=== PATIENT | male | born 1940 | race Caucasian/White ===

== ENCOUNTER 2016-09-01 06:30 | Inpatient (IN) ==
--- NOTE | 2016-08-31 20:58 | Discharge Summary ---
<RaúlvikkiMary L - Last Filed: 08/31/16 20:55> Date of Encounter: 08/31/16 - Discharge Diagnosis (1) Arthritis of knee, left Priority: Primary Status: Acute (2) CAD (coronary artery disease) Priority: Secondary Status: Chronic Qualifiers: Coronary Disease-Associated Artery/Lesion type: unspecified vessel or lesion type [place] vs. transplanted heart: unspecified whether [place] or transplanted heart Associated angina: angina presence unspecified Qualified Code(s): I25.10 - Atherosclerotic heart disease of [place] coronary artery without angina pectoris (3) HTN (hypertension) Priority: Secondary Status: Chronic Qualifiers: Hypertension type: essential hypertension Qualified Code(s): I10 - Essential (primary) hypertension (4) HLD (hyperlipidemia) Priority: Secondary Status: Chronic Qualifiers: Hyperlipidemia type: unspecified Qualified Code(s): E78.5 - Hyperlipidemia , unspecified (5) History of coronary artery stent placement Priority: Secondary Status: Chronic (6) Chronic pain Priority: Secondary Status: Chronic Comments: Takes Percocet 10/325mg TID. Will add breakthrough pain. Qualifiers: Chronic pain type: other chronic pain Qualified Code(s): G89.29 - Other chronic pain - Discharge Medications Home Medications: Aspirin Enteric Coated [Aspirin EC] 325 mg PO DAILY #21 tablet.dr 08/31/16 [Rx] OxyCODONE Immed Rel [Roxicodone 5 MG] 5 - 10 mg PO DAILY #14 tablet 08/31/16 [Rx ] Ascorbic Acid [Vitamin C] 500 mg PO DAILY 09/01/16 [History] Aspirin [Lo-Dose Aspirin EC] 81 mg PO DAILY 09/01/16 [History] Atorvastatin [Lipitor] 40 mg PO HS 09/01/16 [History] Cyanocobalamin (Vitamin B-12) [Vitamin B-12] 1,000 mcg SL DAILY 09/01/16 [ History] Ibuprofen [Motrin] 600 mg PO Q8HR PRN 09/01/16 [History] Lisinopril [Zestril] 20 mg PO DAILY 09/01/16 [History] Multivitamin [One Daily Essential] 1 each PO DAILY 09/01/16 [History] [place]-3/Dha/Epa/Fish Oil [Fish Oil 1,000 mg Softgel] 1 each PO DAILY 09/01/16 [ History] Omeprazole 20 mg PO DAILY 09/01/16 [History] Oxycodone HCl/Acetaminophen [Percocet 10-325 mg Tablet] 1 each PO Q6H PRN [History] Allergies/Adverse Reactions: Allergies No Known Allergies Allergy (Verified 09/01/16 07:45) Primary care physician: Efren Jackson - Patient Status Disposition: Transfer Inpatient Rehab Fac Condition: Good - Discharge Instructions Follow Up With: Jeffrey Glasgow MD [Partnered Physician] - 09/30/16 10:10 am Mary Cotto PAC [Physician Dope Dry House Operator] - 09/11/16 11:00 am Efren Jackson DO [Primary Care Provider] - 12/31/16 10:30 am - Hospital Course Hospital course: Mr. Pillai is a 76 year old male - Time Spent with Patient Total time spent providing and/or coordinating discharge services: <Jeffrey Glasgow - Last Filed: 09/03/16 06:43> Date of Encounter: 09/03/16 Time of Encounter: 06:42 - Discharge Diagnosis (1) Arthritis of knee, left Priority: Primary Status: Acute (2) CAD (coronary artery disease) Priority: Secondary Status: Chronic Qualifiers: Coronary Disease-Associated Artery/Lesion type: unspecified vessel or lesion type [place] vs. transplanted heart: unspecified whether [place] or transplanted heart Associated angina: angina presence unspecified Qualified Code(s): I25.10 - Atherosclerotic heart disease of [place] coronary artery without angina pectoris (3) HTN (hypertension) Priority: Secondary Status: Chronic Qualifiers: Hypertension type: essential hypertension Qualified Code(s): I10 - Essential (primary) hypertension (4) HLD (hyperlipidemia) Priority: Secondary Status: Chronic Qualifiers: Hyperlipidemia type: unspecified Qualified Code(s): E78.5 - Hyperlipidemia , unspecified (5) History of coronary artery stent placement Priority: Secondary Status: Chronic (6) Chronic pain Status: Chronic Qualifiers: Chronic pain type: other chronic pain Qualified Code(s): G89.29 - Other chronic pain Primary care physician: Efren Jackson - Patient Status Functional capacity at discharge: uses cane/walker Overall status at discharge: patient is progressing back to baseline - Hospital Course Hospital course: Mr. Pillai is a 76 year old male The patient had an uneventful postoperative course. They received antibiotics and physical therapy and were discharged in stable condition. There will follow -up in the office in 2 weeks. Patient had some postoperative bleeding required additional arias. Aspirin DVT prophylaxis - Time Spent with Patient Total time spent providing and/or coordinating discharge services:
[2016-09-01] MEDS ORDERED: Albuterol 2.5 MG/3 ML NEBULIZER IH ONE (07:27)
[2016-09-01] MEDS ORDERED: CeFAZolin Pre 2,000 MG/100 ML 2,000 MG/100 ML BAG IVPB ONE (07:27)
[2016-09-01] MEDS ORDERED: Ringers Solution, Lactated 1,000 ML IVC SCH ×2 (07:30→11:29)
[2016-09-01] MEDS ORDERED: Acetaminophen IV 1,000 MG/100 ML INFUS..BTL IVPB ONE (07:30)
[2016-09-01] MEDS ORDERED: Famotidine 20 MG/2 ML VIAL IVP ONE (07:31)
[2016-09-01] MEDS ORDERED: *HR* Midazolam HCl 2 MG/2 ML VIAL ONE (08:12)
[2016-09-01] MEDS ORDERED: *HR* FentaNYL (PF) 100 MCG/2 ML VIAL ONE (08:12)
[2016-09-01] MEDS ORDERED: *HR* Propofol 200 MG/20 ML VIAL IVP ONE (08:13)
[2016-09-01] MEDS ORDERED: Lidocaine -MPF 2% 2 ML VIAL ONE (08:22)
--- NOTE | 2016-09-01 08:31 | Anesthesia Evaluation PreOp ---
Date of Encounter: 09/01/16 Time of Encounter: 08:30 - Past History Planned Operation: Left Total Knee Replacement Cardiac History: [place] (2015 BMS X 3), HTN, Hyperlipidemia, Other (CAD) Pulmonary History: Smoker (Chews Tobacco) DADO OPERATOR History: Denies Any Significant HX Other Medical History: Denies Any Significant HX Anesthesia History: No Prior Anesthetic Complications Alcohol Use: none Drug use: none Medications and Allergies Aspirin Enteric Coated [Aspirin EC] 325 mg PO DAILY #21 tablet. 08/31/16 [Rx] OxyCODONE Immed Rel [Roxicodone 5 MG] 5 - 10 mg PO DAILY #14 tablet 08/31/16 [Rx ] Ascorbic Acid [Vitamin C] 500 mg PO DAILY 09/01/16 [History] Aspirin [Lo-Dose Aspirin EC] 81 mg PO DAILY 09/01/16 [History] Atorvastatin [Lipitor] 40 mg PO HS 09/01/16 [History] Cyanocobalamin (Vitamin B-12) [Vitamin B-12] 1,000 mcg SL DAILY 09/01/16 [ History] Ibuprofen [Motrin] 600 mg PO Q8HR PRN 09/01/16 [History] Lisinopril [Zestril] 20 mg PO DAILY 09/01/16 [History] Multivitamin [One Daily Essential] 1 each PO DAILY 09/01/16 [History] [place]-3/Dha/Epa/Fish Oil [Fish Oil 1,000 mg Softgel] 1 each PO DAILY 09/01/16 [ History] Omeprazole 20 mg PO DAILY 09/01/16 [History] Oxycodone HCl/Acetaminophen [Percocet 10-325 mg Tablet] 1 each PO Q6H PRN [History] Allergies No Known Allergies Allergy (Verified 09/01/16 07:45) - Meds/Allergy Pre-op Review Medications Reviewed: Yes Allergies Reviewed: Yes Beta Blockers on Current Med List: No Anesthesia Results - Labs Laboratory Tests 08/20/16 08/20/16 10:35 10:35 Hgb 14.2 Hct 44.3 Plt Count 209 Sodium 144 Potassium 4.3 BUN 15 Creatinine 1.20 - Imaging EKG: report reviewed (SR) Anesthesia Exam O2 Sat Height 1.73 m Height 1.73 m Height 1.73 m Weight 92.986 kg Weight 92.986 kg Weight 92.986 kg O2 Sat by Pulse Oximetry 93 O2 Sat by Pulse Oximetry 93 Vital Signs Temp Pulse Resp BP Pulse Ox 98.5 F 79 18 182/100 93 09/01/16 07:15 09/01/16 07:15 09/01/16 07:15 09/01/16 07:15 09/01/16 07:15 Height: 5'8 Weight: 204 lbs NPO (# of Hours): MN Pain Scale: 0 - HEENT Pupil (Motor): Pupils equal, EOMI Mallampati: II Denture Type: Upper: Complete Oral Opening: Greater than 3 - DADO OPERATOR LOC: Oriented DADO OPERATOR Motor: Normal RUE, Normal LUE, Normal RLE, Normal LLE, Normal Face DADO OPERATOR Sensory: Normal: RUE, LUE, RLE, LLE, Face - Cardiac Rhythm: Regular Murmur: None JVD: No Carotid Bruit: No - Pulmonary Breath Sounds: bilateral Clear Respiratory Effort: Symmetrical Anesthesia Assess/Plan ASA Score: 3 (CAD HTN) Modified Agustin Scale for Level of Consciousness: Cooperative, oriented, and tranquil Anesthetic Plan: General, Regional Monitoring Plan: Standard Monitors Recovery Plan: PACU (Discussed GA and RA, agrees to proceed)
[2016-09-01] MEDS ORDERED: Bupivacaine/Clonidine Syringe 1 EACH SYRINGE ONE (08:45)
--- NOTE | 2016-09-01 09:10 | Anesthesia Procedures ---
Date of Encounter: 09/01/16 Time of Encounter: 09:08 Procedures: Anesthesia - Nerve Block Procedure Date: 09/01/16 Time: 09:08 Allergies/Adv Reactions: Allergies No Known Allergies Allergy (Verified 09/01/16 07:45) Pre-op Diagnosis: oa left knee Surgical Procedure: left tka Checklist: Correct Patient Identifier, Correct procedure, History checked Correct side: Left Blood Thinner: No Monitor Applied: EKG, BP, Pulse Oximetry Supplemental Oxygen via Nasal Cannula (L/min): 2 Sedation: Versed (mg): 2 Indication: Post Op Analgesia Pre-op Neuro Deficits: No Block Type: Femoral, Other (iPACK) Catheter placed: No Sterile Technique: Yes Ultrasound used: Yes Anatomy identified: Yes Visual spread of Local: Yes Neuro Stimulation: Yes Nerve Stimulator Range: 0.2 - 0.4 mA Blood on Needle Aspiration: No Smooth Injection of Local: Yes Pain with Injection of Local: No Prep: Chlorhexadine Needle: 22 x 50 mm Stimuplex (FEMORAL), 21 x 100 mm Stimuplex (iPACK) Local: 0.25% Bupivicaine w/Clonidine 20 mcg/cc (iPACK 20ml), Ropivacaine (0.5% 25ml) Volume (cc): 45 Number of Attempts: 1 Complications: None/effective block
[2016-09-01] MEDS ORDERED: Dexamethasone 4 MG/ML VIAL ONE (09:28)
[2016-09-01] MEDS ORDERED: Ondansetron 4 MG/2 ML VIAL ONE (09:28)
[2016-09-01] MEDS ORDERED: Ketorolac 30 MG/ML VIAL ONE (09:29)
[2016-09-01] MEDS ORDERED: *HR* Magnesium Sulfate 1 GM/2 ML VIAL ONE (09:30)
[2016-09-01] MEDS ORDERED: *HR* HYDROmorphone (PF) 1 MG/ML SYRINGE IVP PRN (09:43)
[2016-09-01] MEDS ORDERED: Ondansetron 4 MG/2 ML VIAL IVP PRN ×2 (09:43→11:29)
[2016-09-01] MEDS ORDERED: *HR* HYDROmorphone 2 MG/ML SYRINGE ONE (09:44)
[2016-09-01] MEDS ORDERED: EPHEDrine 50 MG/ML VIAL ONE (10:00)
--- NOTE | 2016-09-01 10:00 | Orthopedic Operative Note ---
Date of procedure: 09/01/16 Pre-op diagnosis: Left knee arthritis Post-op diagnosis: same Procedure: Procedure: Left Total knee replacement Estimated blood loss: 200 cc Hardware: Arthrex Femur: 7 Tibia: 7 PS insert: 10 Patella: 40 Exam Under anesthesia: Full flexion full extension no instability Procedural Notes: Grade 4 changes medial compartment grade 3 arthritic changes patellofemoral joint Operative procedure: The patient was brought to the operating room and placed on the operating room table. After general anesthesia was administered the operative knee was examined. Findings were noted in the exam under anesthesia. The operative extremity was prepped and draped in sterile surgical fashion. The patient received IV antibiotics prior to skin incision. A standard midline incision was made centered over the patella. The incision was made through the skin and subcutaneous tissue. A medial parapatellar tendon approach was performed. Care was taken to preserve tissue along the medial aspect of the patella. And to protect the patella tendon. The deep MCL was released off the medial tibia. The infra patella fat pad was excised. Knee was brought into flexion. Patient noted to have grade 4 changes medial compartment and grade 3 arthritic changes patellofemoral joint. The entry hole was made for the intramedullary femoral guide. The guide was seated in 6 degrees of valgus. Anterior cut was made followed by the distal cut. The ACL the PCL the medial and the lateral menisci were excised. The tibia was subluxed forward. The entry hole was made for the intramedullary tibial guide. Guide was seated to resect 2 mm off the more abnormal side. The knee was brought into flexion the distal femur was sized to a 7. The femoral guide was seated, the anterior cut was made followed by the posterior condylar cut, followed by the chamfer cuts. The finishing guide was seated the box cut was made and the lug holes were drilled. The tibia was sized to a 7, the tibial tray was seated and prepared with the large drill followed by the fin cutter. Trial reduction revealed full extension no varus valgus instability with the appropriate 10 PS Roberta. The patella was everted and cut was made at the level of the insertion of the quadriceps and patella tendon. The patella was sized to a 40 the guide was seated and the lug holes are drilled. Trial reduction revealed excellent patella tracking. All trial components were removed all bony surfaces were irrigated. The tibia was cemented first followed by the femur. The 10 PS Roberta was seated and the knee was brought into full extension. The patella was cemented and held in place with the patellar holding clamp. After the cement had hardened, the knee sat for 2 minutes with a Betadine saline solution. The knee was then irrigated out with 2 L of pulse irrigation. The extensor mechanism was closed with #2 FiberWire suture and #2 PDS suture. The subcutaneous tissue was then irrigated and closed deep with #1 PDS suture superficially with 0 PDS suture and skin was closed with skin arias. The patient was then placed in a sterile dressing and a postoperative brace extubated and transferred to recovery room in stable condition. Anesthesia: ROMARIO Surgeon: Jeffrey Glasgow Women Specialist: Mary Cotto Condition: stable Disposition: PACU
[2016-09-01 10:49] LABS: Hematocrit 39.3 % (37.5-50.1); Hemoglobin 12.7 g/dL (12.9-16.9)
[2016-09-01] MEDS: *HR* Labetalol 100 MG/20 ML MDV IVP PRN ×2 (11:10→11:16)
[2016-09-01] MEDS ORDERED: *HR* Labetalol 20 MG/4 ML SYRINGE IVP PRN (11:11)
[2016-09-01] MEDS ORDERED: Temazepam 15 MG CAPSULE PO PRN (11:29)
[2016-09-01] MEDS ORDERED: Acetaminophen 325 MG TABLET PO PRN (11:29)
[2016-09-01] MEDS ORDERED: Naloxone 0.4 MG/ML INJ IVP PRN (11:29)
[2016-09-01] MEDS ORDERED: MOM Conc 10 ML UD.LIQ PO PRN (11:29)
[2016-09-01] MEDS ORDERED: *HR* OxyCODONE Immed Rel 5 MG TABLET PO PRN (11:29)
[2016-09-01] MEDS ORDERED: Ibuprofen 600 MG TABLET PO PRN (11:29)
[2016-09-01] MEDS ORDERED: Sennosides 8.6 MG TABLET PO PRN (11:29)
--- NOTE | 2016-09-01 11:29 | Anesthesia Evaluation Post Op ---
Date of Encounter: 09/01/16 Time of Encounter: 11:28 - Vital Signs Vital Signs: Vital Signs/O2 Sat, Most Current Temp Pulse Resp BP Pulse Ox 98.0 F 59 18 149/89 97 09/01/16 11:15 09/01/16 11:15 09/01/16 11:15 09/01/16 11:15 09/01/16 11:15 - Lungs Lungs: Clear Ascult./Percussion - Airway Airway: Non-obstructed - Cardiovascular Regular Rate - Mental Status Mental Status: Alert & Oriented, Answers Appropriately - Pain Pain Scale: 0 Pain Scale used: Numeric (1 - 10) - Nausea Vomiting Nausea Vomiting: Not Present - Hydration Hydration: Ice chips, Has not voided - Discharge PostOp Status: Transfer Patient to floor
[2016-09-01] MEDS: (Omega-3/Dha/Epa/Fish Oil [Fish Oil 1,000 Mg Softgel]) PO SCH (11:47)
[2016-09-01] MEDS: Aspirin Enteric Coated 81 MG Tablet PO SCH (11:56)
[2016-09-01] MEDS: Lisinopril 20 MG TABLET PO SCH (12:04)
[2016-09-01] MEDS: Ascorbic Acid 500 MG TABLET PO SCH (12:05)
[2016-09-01] MEDS: Cyanocobalamin (B-12) 1,000 MCG TABLET PO SCH (12:05)
[2016-09-01] MEDS: Multivit/Ca/Min/Fe/FA 1 TAB TABLET PO SCH (12:05)
[2016-09-01] MEDS: ceFAZolin 2,000 MG in D5% in Water 100 ML IVPB SCH (15:22)
[2016-09-01] MEDS: *HR* Enoxaparin 30 MG/0.3 ML SYRINGE SQ SCH (17:24)
[2016-09-01] MEDS ORDERED: *HR* Enoxaparin 30 MG/0.3 ML SYRINGE SQ SCH (18:00)
[2016-09-01] MEDS: *HR* OxyCODONE Immed Rel 5 MG TABLET PO PRN (18:52)
[2016-09-02] MEDS: ceFAZolin 2,000 MG in D5% in Water 100 ML IVPB SCH (00:12)
[2016-09-02] MEDS: *HR* OxyCODONE Immed Rel 5 MG TABLET PO PRN ×4 (00:18→17:12)
[2016-09-02 05:16] LABS: Hematocrit 34.5 % (37.5-50.1); Hemoglobin 11.2 g/dL (12.9-16.9)
[2016-09-02 05:23] LABS: BUN/Creatinine Ratio 18 (6-26); Blood Urea Nitrogen 20 mg/dL (8-26); Calcium 8.8 mg/dL (8.6-10.8); Carbon Dioxide 26 mEq/L (19-29); Chloride 103 mEq/L (98-109); Glucose 197 mg/dL (70-99); Osmolality,Calculated 290 (280-300); Potassium 4.3 mEq/L (3.5-4.5); Sodium 136 mEq/L (136-145); eGFR For African Americans > 60 (> 60); eGFR For Non-African Americans > 60 (> 60)
[2016-09-02] MEDS: *HR* Enoxaparin 30 MG/0.3 ML SYRINGE SQ SCH ×2 (05:44→17:01)
--- NOTE | 2016-09-02 06:20 | Orthopedics Progress Note ---
Date of Encounter: 09/02/16 Time of Encounter: 06:19 - Assessment and Plan (1) Arthritis of knee, left Current Visit: Yes Status: Acute (2) CAD (coronary artery disease) Current Visit: Yes Status: Chronic Qualifiers: Coronary Disease-Associated Artery/Lesion type: unspecified vessel or lesion type [place] vs. transplanted heart: unspecified whether [place] or transplanted heart Associated angina: angina presence unspecified Qualified Code(s): I25.10 - Atherosclerotic heart disease of [place] coronary artery without angina pectoris (3) HTN (hypertension) Current Visit: Yes Status: Chronic Qualifiers: Hypertension type: essential hypertension Qualified Code(s): I10 - Essential (primary) hypertension (4) HLD (hyperlipidemia) Current Visit: Yes Status: Chronic Qualifiers: Hyperlipidemia type: unspecified Qualified Code(s): E78.5 - Hyperlipidemia , unspecified (5) History of coronary artery stent placement Current Visit: Yes Status: Chronic (6) Chronic pain Current Visit: Yes Status: Chronic Qualifiers: Chronic pain type: other chronic pain Qualified Code(s): G89.29 - Other chronic pain Subjective Interval history: Patient was seen this morning doing well without complaints. Afebrile vital signs stable. Operative extremity: Neurovascularly intact Dressing bloody change today Calves nontender Assessment and plan: Continue with postoperative care Hematocrit 34 Objective Vital signs: Vital Signs Temp Pulse Resp BP Pulse Ox 09/02/16 04:24 97.5 F L 90 17 150/73 95 09/01/16 23:55 98.1 F 77 14 125/69 93 09/01/16 20:25 98.1 F 97 17 152/76 96 09/01/16 14:31 97.8 F 73 16 152/89 95 09/01/16 14:06 77 15 138/77 94 09/01/16 13:39 97.8 F 77 15 138/77 94 09/01/16 12:32 97.8 F 73 14 145/79 92 09/01/16 12:07 97.6 F 72 13 125/86 92 09/01/16 11:35 93 09/01/16 11:29 97.6 F 59 14 157/90 92 09/01/16 11:15 98.0 F 59 18 149/89 97 09/01/16 11:05 71 18 172/101 97 09/01/16 10:55 97.8 F 72 16 160/98 97 09/01/16 10:45 76 14 159/90 97 09/01/16 10:35 81 14 154/97 96 09/01/16 10:25 98.9 F 73 20 136/85 95 09/01/16 08:45 73 162/99 97 09/01/16 07:39 98.5 F 79 18 182/100 93 09/01/16 07:15 98.5 F 79 18 182/100 93 Intake and Output 09/01/16 09/01/16 09/02/16 15:59 23:59 07:59 Intake Total 100 / 100 360 / 360 Output Total 200 / 200 250 / 250 Balance -100 / -100 360 / 360 -250 / -250 Intake: IV Fluids 100 / 100 Ancef 2,000 MG In 100 / 100 Dextrose 5% 100 ML @ 200 mls/hr IVPB Q8HR CHARITY Rx#: [id number] Oral 360 / 360 Output: Urine 250 / 250 Estimated Blood Loss 200 / 200 Other: Meal Dinner Percent of Meal Consumed 100% # Voids 1 - Labs CBC & BMP: 09/02/16 04:06 09/02/16 04:06 Labs: Abnormal lab results Hgb 11.2 g/dL (12.9-16.9) L D 09/02/16 04:06 Hct 34.5 % (37.5-50.1) L 09/02/16 04:06 Glucose 197 mg/dL (70-99) H 09/02/16 04:06 - VTE Documentation of Mechanical Device: Venous foot pump, device Consult Discharge Plan - Plan Referrals: Jeffrey Glasgow MD [Partnered Physician] - 09/30/16 10:10 am Mary Cotto PAC [Physician Assistant Store Manager Sales] - 09/11/16 11:00 am Efren Jackson DO [Primary Care Provider] - 12/31/16 10:30 am
[2016-09-02] MEDS: Ascorbic Acid 500 MG TABLET PO SCH (09:00)
[2016-09-02] MEDS: Cyanocobalamin (B-12) 1,000 MCG TABLET PO SCH (09:00)
[2016-09-02] MEDS: Lisinopril 20 MG TABLET PO SCH (09:00)
[2016-09-02] MEDS: Aspirin Enteric Coated 81 MG Tablet PO SCH (09:00)
[2016-09-02] MEDS: (Omega-3/Dha/Epa/Fish Oil [Fish Oil 1,000 Mg Softgel]) PO SCH (09:00)
[2016-09-02] MEDS: Multivit/Ca/Min/Fe/FA 1 TAB TABLET PO SCH (09:00)
[2016-09-02] MEDS: *HR* HYDROmorphone (PF) 1 MG/ML SYRINGE IVP PRN ×2 (13:54→20:14)
[2016-09-03 05:20] LABS: Hematocrit 36.1 % (37.5-50.1); Hemoglobin 11.9 g/dL (12.9-16.9)
[2016-09-03 05:29] LABS: BUN/Creatinine Ratio 19 (6-26); Blood Urea Nitrogen 20 mg/dL (8-26); Carbon Dioxide 30 mEq/L (19-29); Chloride 101 mEq/L (98-109); Glucose 147 mg/dL (70-99); Osmolality,Calculated 287 (280-300); Potassium 4.4 mEq/L (3.5-4.5); Sodium 136 mEq/L (136-145); eGFR For African Americans > 60 (> 60); eGFR For Non-African Americans > 60 (> 60)
[2016-09-03] MEDS: *HR* OxyCODONE Immed Rel 5 MG TABLET PO PRN (06:31)
[2016-09-03 06:33] VITALS: BP 166/94
[2016-09-03] MEDS: *HR* Enoxaparin 30 MG/0.3 ML SYRINGE SQ SCH (06:34)
--- NOTE | 2016-09-03 06:41 | Orthopedics Progress Note ---
Date of Encounter: 09/03/16 Time of Encounter: 06:41 - Assessment and Plan (1) Arthritis of knee, left Current Visit: Yes Status: Acute (2) CAD (coronary artery disease) Current Visit: Yes Status: Chronic Qualifiers: Coronary Disease-Associated Artery/Lesion type: unspecified vessel or lesion type [place] vs. transplanted heart: unspecified whether [place] or transplanted heart Associated angina: angina presence unspecified Qualified Code(s): I25.10 - Atherosclerotic heart disease of [place] coronary artery without angina pectoris (3) HTN (hypertension) Current Visit: Yes Status: Chronic Qualifiers: Hypertension type: essential hypertension Qualified Code(s): I10 - Essential (primary) hypertension (4) HLD (hyperlipidemia) Current Visit: Yes Status: Chronic Qualifiers: Hyperlipidemia type: unspecified Qualified Code(s): E78.5 - Hyperlipidemia , unspecified (5) History of coronary artery stent placement Current Visit: Yes Status: Chronic (6) Chronic pain Current Visit: Yes Status: Chronic Qualifiers: Chronic pain type: other chronic pain Qualified Code(s): G89.29 - Other chronic pain Subjective Interval history: Patient was seen this morning doing well without complaints. Afebrile vital signs stable. Operative extremity: Neurovascularly intact Dressing bloody change today Calves nontender Assessment and plan: Continue with postoperative care Hematocrit 36 discharged today Objective Vital signs: Vital Signs Temp Pulse Resp BP Pulse Ox 09/03/16 06:31 98.2 F 88 16 166/94 92 09/03/16 01:37 98.4 F 100 16 158/94 92 09/02/16 17:17 99 161/89 09/02/16 14:00 98.2 F 81 18 165/94 93 09/02/16 10:58 98.0 F 85 18 135/75 95 09/02/16 07:11 97 Intake and Output 09/02/16 09/02/16 09/03/16 15:59 23:59 07:59 Intake Total 480 / 480 240 / 240 Output Total 1100 / 1100 700 / 700 Balance -620 / -620 -460 / -460 Intake: Oral 480 / 480 240 / 240 Output: Urine 1100 / 1100 700 / 700 Other: Meal Lunch Dinner Percent of Meal Consumed 100% 90% - Labs CBC & BMP: 09/03/16 04:58 09/03/16 04:58 Labs: Abnormal lab results Hgb 11.9 g/dL (12.9-16.9) L 09/03/16 04:58 Hct 36.1 % (37.5-50.1) L 09/03/16 04:58 Carbon Dioxide 30 mEq/L (19-29) H 09/03/16 04:58 Glucose 147 mg/dL (70-99) H 09/03/16 04:58 - VTE Documentation of Mechanical Device: Venous foot pump, device Consult Discharge Plan - Plan Referrals: Jeffrey Glasgow MD [Partnered Physician] - 09/30/16 10:10 am Mary Cotto, PAC [Physician Dancing Instructor] - 09/11/16 11:00 am Efren Jackson DO [Primary Care Provider] - 12/31/16 10:30 am
[2016-09-03] MEDS: Ascorbic Acid 500 MG TABLET PO SCH (08:23)
[2016-09-03] MEDS: Aspirin Enteric Coated 81 MG Tablet PO SCH (08:23)
[2016-09-03] MEDS: Cyanocobalamin (B-12) 1,000 MCG TABLET PO SCH (08:23)
[2016-09-03] MEDS: Multivit/Ca/Min/Fe/FA 1 TAB TABLET PO SCH (08:23)
[2016-09-03] MEDS: Lisinopril 20 MG TABLET PO SCH (08:24)
[2016-09-03] MEDS: (Omega-3/Dha/Epa/Fish Oil [Fish Oil 1,000 Mg Softgel]) PO SCH (08:24)
== END 2016-09-03 09:45 | DRG 470 ==
LOC: SAMDAY 06:30 → 3NENU 10:58
PROVIDERS: ADMIT Orthopaedic Surgery; ATTEND Orthopaedic Surgery

== ENCOUNTER 2017-02-26 13:18 | Inpatient (IN) ==
--- NOTE | 2017-02-26 13:25 | Emergency Department Note ---
Disposition Clinical Impression: Atrial flutter, Echocardiogram abnormal, Dyspnea Disposition: Admitted As Inpatient Condition: Fair General Adult HPI - General Chief complaint: ED Shortness of Breath/Dyspnea Stated complaint: SOB Time Seen by Provider: 02/26/17 13:22 - Related Data Home Medications Medication Instructions Recorded Confirmed Ascorbic Acid [Vitamin C] 600 mg PO DAILY 09/01/16 02/26/17 Aspirin [Lo-Dose Aspirin EC] 81 mg PO DAILY 09/01/16 02/26/17 Cyanocobalamin (Vitamin B-12) 1,000 mcg SL DAILY 09/01/16 02/26/17 [Vitamin B-12] Ibuprofen [Motrin] 600 mg PO Q8HR PRN 09/01/16 02/26/17 Lisinopril [Zestril] 20 mg PO DAILY 09/01/16 02/26/17 Multivitamin [One Daily Essential] 1 each PO DAILY 09/01/16 02/26/17 Omeprazole 20 mg PO DAILY 09/01/16 02/26/17 Metoprolol XL (24 HR) Succ [Toprol 25 mg PO DAILY 02/26/17 02/26/17 XL] Oxycodone HCl/Acetaminophen 1 tab PO Q6H PRN 02/26/17 02/26/17 [Percocet 10-325 mg Tablet] Allergies Allergy/AdvReac Type Severity Reaction Status Date / Time No Known Allergies Allergy Verified 02/09/17 09:54 Past Medical History - Past Medical History Medical history: Reports: arthritis, coronary artery disease, hyperlipidemia, hypertension Psychiatric history: Reports: no psych history - Social History Smoking Status: Never smoker Smokeless Tobacco Status: No Alcohol use: Reports: none Drug use: Reports: none Course Vital Signs Temperature 99.0 F 02/26/17 13:20 Pulse Rate 144 02/26/17 13:20 Respiratory Rate 18 02/26/17 13:20 Blood Pressure 134/103 02/26/17 13:20 O2 Sat by Pulse Oximetry 94 02/26/17 13:20 Temperature 97.7 F 02/26/17 20:09 Pulse Rate 71 02/26/17 20:09 Respiratory Rate 18 02/26/17 20:09 Blood Pressure 95/67 02/26/17 20:09 O2 Sat by Pulse Oximetry 96 02/26/17 20:09 Oxygen Delivery Oxygen Delivery Nasal Cannula Medical Decision Making - Lab Data Result diagrams: 02/26/17 13:43 02/26/17 13:44 Lab Results 02/26/17 02/26/17 02/26/17 Range/Units 13:43 13:44 13:44 WBC 10.5 (4.3-11.1) K/mcL RBC 4.62 (4.19-5.50) M/mcL Hgb 12.9 (12.9-16.9) g/dL Hct 40.9 (37.5-50.1) % MCV 88.5 (83.0-100.0) fL MCH 27.9 L (28.0-33.3) pg MCHC 31.5 L (31.6-35.5) g/dL RDW 16.3 H (11.5-14.5) % Plt Count 177 (140-400) K/mcL MPV 9.2 L (9.4-12.4) fL Immature Gran % 0.9 (0-4) % Seg Neutrophils % 73.5 % Lymphocytes % 16.1 % Monocytes % 8.0 % Eosinophils % 1.1 % Basophils % 0.4 % Neutrophils # 7.7 (1.6-8.9) K/mcL Lymphocytes # 1.7 (0.6-4.6) K/mcL Monocytes # 0.8 (0.0-1.3) K/mcL Eosinophils # 0.1 (0.0-0.6) K/mcL Basophils # 0.0 (0.0-0.2) K/mcL Nucleated RBCs/100 WBC 0.2 H (0) /100 WBC PT 13.3 H (9.4-12.1) Seconds INR 1.2 APTT (26.0-36.0) Seconds D-Dimer 2121 H (0-500) ng/mLFEU Sodium 140 (136-145) mEq/L Potassium 3.5 (3.5-4.5) mEq/L Chloride 102 (98-109) mEq/L Carbon Dioxide 28 (19-29) mEq/L BUN 23 (8-26) mg/dL Creatinine 1.46 H (0.72-1.25) mg/dL Est GFR ( Amer) 57 L (> 60) Est GFR (Non-Af Amer) 47 L (> 60) BUN/Creatinine Ratio 16 (6-26) Glucose 108 H (70-99) mg/dL Calculated Osmolality 294 (280-300) Calcium 9.4 (8.6-10.8) mg/dL Total Bilirubin 1.0 (0.2-1.2) mg/dL Direct Bilirubin 0.4 (0.0-0.5) mg/dL Indirect Bilirubin 0.6 (0.0-1.2) mg/dL AST 41 H (5-34) Units/L ALT 14 (0-55) Units/L Alkaline Phosphatase 91 (38-126) Units/L Troponin I (0-0.03) ng/mL B-Natriuretic Peptide (0-100) pg/mL Serum Total Protein 6.4 (6.0-8.3) g/dL Albumin 3.6 (3.5-5.0) g/dL Globulin 2.8 (2.4-3.5) g/dL Albumin/Globulin Ratio 1.3 (1.1-2.2) 02/26/17 02/26/17 02/26/17 Range/Units 13:44 13:44 13:44 WBC (4.3-11.1) K/mcL RBC (4.19-5.50) M/mcL Hgb (12.9-16.9) g/dL Hct (37.5-50.1) % MCV (83.0-100.0) fL MCH (28.0-33.3) pg MCHC (31.6-35.5) g/dL RDW (11.5-14.5) % Plt Count (140-400) K/mcL MPV (9.4-12.4) fL Immature Gran % (0-4) % Seg Neutrophils % % Lymphocytes % % Monocytes % % Eosinophils % % Basophils % % Neutrophils # (1.6-8.9) K/mcL Lymphocytes # (0.6-4.6) K/mcL Monocytes # (0.0-1.3) K/mcL Eosinophils # (0.0-0.6) K/mcL Basophils # (0.0-0.2) K/mcL Nucleated RBCs/100 WBC (0) /100 WBC PT (9.4-12.1) Seconds INR APTT 26.7 (26.0-36.0) Seconds D-Dimer (0-500) ng/mLFEU Sodium (136-145) mEq/L Potassium (3.5-4.5) mEq/L Chloride (98-109) mEq/L Carbon Dioxide (19-29) mEq/L BUN (8-26) mg/dL Creatinine (0.72-1.25) mg/dL Est GFR ( Amer) (> 60) Est GFR (Non-Af Amer) (> 60) BUN/Creatinine Ratio (6-26) Glucose (70-99) mg/dL Calculated Osmolality (280-300) Calcium (8.6-10.8) mg/dL Total Bilirubin (0.2-1.2) mg/dL Direct Bilirubin (0.0-0.5) mg/dL Indirect Bilirubin (0.0-1.2) mg/dL AST (5-34) Units/L ALT (0-55) Units/L Alkaline Phosphatase (38-126) Units/L Troponin I 0.03 (0-0.03) ng/mL B-Natriuretic Peptide 573 H (0-100) pg/mL Serum Total Protein (6.0-8.3) g/dL Albumin (3.5-5.0) g/dL Globulin (2.4-3.5) g/dL Albumin/Globulin Ratio (1.1-2.2) Critical Care Time Critical Care Time: Yes Total Critical Care Time: 30 Attestation: Suspected atrial flutter requiring Cardizem drip for rate control Attestation Statement - Attestation Attestation: I examined this patient and my medical decision-making was reviewed with the Resident Physician. I agree with the documented findings, disposition and treatment plan as described except to the extent set forth below. [id number] time provided Patient arrives by embolus. He had an outpatient echocardiogram at a different facility which reportedly showed a low ejection fraction and heart rate in the 140s. Patient does complain of dyspnea that has now resolved and peripheral edema. He appears in no acute distress on exam 14:18: Patient's creatinine is elevated. He also has an elevated d-dimer. CTA chest contraindicated due to renal function. We will obtain a VQ scan
--- NOTE | 2017-02-26 13:37 | Emergency Department Note ---
Disposition Clinical Impression: Echocardiogram abnormal Atrial flutter Qualifiers: Atrial flutter type: unspecified Qualified Code(s): I48.92 - Unspecified atrial flutter Dyspnea Qualifiers: Dyspnea type: unspecified Qualified Code(s): R06.00 - Dyspnea, unspecified Disposition: Admitted As Inpatient Condition: Fair Referrals: Karen Richmond CNP [Primary Care Provider] - Forms: ED Satisfaction Letter Time of Disposition: 16:18 SOB HPI - General Chief Complaint: ED Shortness of Breath/Dyspnea Stated Complaint: SOB Time Seen by Provider: 02/26/17 13:22 Source: patient, EMS Limitations: no limitations Nursing Notes Reviewed: Yes Vital Signs Reviewed: Yes - History of Present Illness Patient is a 77-year-old male who presents to [facility] ED with a chief complaint of shortness of breath. States he was told to come in because his heart function was low. Hypercholesterolemia, HTN, CAD s/p NSTEMI s/p BMS to prox LCx, mid RCA, and distal RCA. He was seen at the PCP office yesterday and had an outpatient echocardiogram scheduled for today. His ejection fraction was found to be 20% with severe LV dysfunction. This is changed compared to his prior echocardiogram done in June 2014 which showed an EF of 60%. Patient previously was following with public relations associate Dr Silver. He was told to come in to the ED by his primary care Matthew Richmond CNP. Patient states he has been increasingly short of breath intermittently over the last month. He had been diagnosed with pneumonia and pleural effusion and still on a course of Levaquin. He denies any nausea, vomiting, fever or chills. No chest pain, orthopnea, exertional dyspnea. States his chronic knee pain has been bothering him and keeping him from walking more than anything else. Pt Subjective Complaint: shortness of breath Onset (ago): week(s) Context: recent illness Severity: moderate Consistency/Duration: gradually worsening Improves with: rest Worsens with: nothing Associated symptoms: Denies: chest pain, fever, cough, orthopnea, nausea/ vomiting, abdominal pain Treatment prior to arrival: none Cough present: No - Related Data Home oxygen amount: none Home Medications Medication Instructions Recorded Confirmed Ascorbic Acid [Vitamin C] 600 mg PO DAILY 09/01/16 02/26/17 Aspirin [Lo-Dose Aspirin EC] 81 mg PO DAILY 09/01/16 02/26/17 Cyanocobalamin (Vitamin B-12) 1,000 mcg SL DAILY 09/01/16 02/26/17 [Vitamin B-12] Ibuprofen [Motrin] 600 mg PO Q8HR PRN 09/01/16 02/26/17 Lisinopril [Zestril] 20 mg PO DAILY 09/01/16 02/26/17 Multivitamin [One Daily Essential] 1 each PO DAILY 09/01/16 02/26/17 Omeprazole 20 mg PO DAILY 09/01/16 02/26/17 Metoprolol XL (24 HR) Succ [Toprol 25 mg PO DAILY 02/26/17 02/26/17 XL] Oxycodone HCl/Acetaminophen 1 tab PO Q6H PRN 02/26/17 02/26/17 [Percocet 10-325 mg Tablet] Allergies Allergy/AdvReac Type Severity Reaction Status Date / Time No Known Allergies Allergy Verified 02/09/17 09:54 All systems ED: reviewed and negative except as stated. Past Medical History - Past Medical History Attestation: Yes The following information was validated with the patient. Source: patient Medical history: Reports: arthritis, coronary artery disease, hyperlipidemia, hypertension Psychiatric history: Reports: no psych history - Social History Smoking Status: Never smoker Smokeless Tobacco Status: No Alcohol use: Reports: none Drug use: Reports: none Physical Exam - General Limitations: no limitations General appearance: alert, in no apparent distress - Head Head exam: atraumatic, normocephalic, normal inspection - Eye Eye exam: Present: normal appearance, EOMI - ENT ENT exam: normal exam, normal oropharynx, mucous membranes moist - Neck Neck exam: Present: normal inspection, full ROM, trachea midline - Chest Chest inspection: Present: normal inspection, symmetric chest wall rise - Respiratory Respiratory exam: Present: other (Decreased breath sounds bilaterally) - Cardiovascular Cardiovascular exam: Present: tachycardia, irregular rhythm - Abdominal Exam Abdominal exam: Present: soft, Non-Tender. Absent: tenderness, distention, guarding, rebound, rigidity - Extremities Exam Extremities exam: Present: normal inspection, full ROM, pedal edema (Bilateral 2 + edema). Absent: tenderness - Back Exam Back exam: Present: normal inspection, full ROM. Absent: tenderness - Neurological Exam Neurological exam: Present: alert, oriented X3 - Psychiatric Psychiatric exam: Present: normal affect, normal mood - Skin Skin exam: Present: warm, dry, intact, normal color Course Course Narrative: Patient seen and examined. Dyspnea over the last month. Found to have ejection fraction of 20% today. Cardiopulmonary workup initiated. Patient's dyspnea has not been very characteristic of heart failure. Also get a d-dimer level. He is in atrial flutter with rapid ventricular response. We will give a dose of 15 mg IV Cardizem and started on a Cardizem drip. We will also start patient on a heparin drip. Unknown how long he has been in this rhythm. - Reevaluation(s) Reevaluation #1: Lab work shows troponin 0.03, BNP in the 500s. His d-dimer level was elevated over 1999. However due to his creatinine, we chose to get a ventilation/ perfusion scan. This showed low probability for pulmonary embolus. Will admit for atrial flutter with RVR, dyspnea, JACQUES. Discussed with hospitalist Dr. Yoder who has accepted patient for admission. Time: 16:16 Vital Signs Temperature 99.0 F 02/26/17 13:20 Pulse Rate 144 02/26/17 13:20 Respiratory Rate 18 02/26/17 13:20 Blood Pressure 134/103 02/26/17 13:20 O2 Sat by Pulse Oximetry 94 02/26/17 13:20 Temperature 99.0 F 02/26/17 13:20 Pulse Rate 101 02/26/17 16:09 Respiratory Rate 20 02/26/17 16:09 Blood Pressure 123/81 02/26/17 16:09 O2 Sat by Pulse Oximetry 98 02/26/17 16:09 Oxygen Delivery Oxygen Delivery Nasal Cannula Shortness of Breath/Dyspnea - Medical Records Medical records reviewed: Yes I reviewed the patient's medical records. - Lab Data Lab results reviewed: Yes I reviewed the patient's lab results. Result diagrams: 02/26/17 13:43 02/26/17 13:44 Lab Results 02/26/17 02/26/17 02/26/17 Range/Units 13:43 13:44 13:44 WBC 10.5 (4.3-11.1) K/mcL RBC 4.62 (4.19-5.50) M/mcL Hgb 12.9 (12.9-16.9) g/dL Hct 40.9 (37.5-50.1) % MCV 88.5 (83.0-100.0) fL MCH 27.9 L (28.0-33.3) pg MCHC 31.5 L (31.6-35.5) g/dL RDW 16.3 H (11.5-14.5) % Plt Count 177 (140-400) K/mcL MPV 9.2 L (9.4-12.4) fL Immature Gran % 0.9 (0-4) % Seg Neutrophils % 73.5 % Lymphocytes % 16.1 % Monocytes % 8.0 % Eosinophils % 1.1 % Basophils % 0.4 % Neutrophils # 7.7 (1.6-8.9) K/mcL Lymphocytes # 1.7 (0.6-4.6) K/mcL Monocytes # 0.8 (0.0-1.3) K/mcL Eosinophils # 0.1 (0.0-0.6) K/mcL Basophils # 0.0 (0.0-0.2) K/mcL Nucleated RBCs/100 WBC 0.2 H (0) /100 WBC PT 13.3 H (9.4-12.1) Seconds INR 1.2 APTT (26.0-36.0) Seconds D-Dimer 2121 H (0-500) ng/mLFEU Sodium 140 (136-145) mEq/L Potassium 3.5 (3.5-4.5) mEq/L Chloride 102 (98-109) mEq/L Carbon Dioxide 28 (19-29) mEq/L BUN 23 (8-26) mg/dL Creatinine 1.46 H (0.72-1.25) mg/dL Est GFR ( Amer) 57 L (> 60) Est GFR (Non-Af Amer) 47 L (> 60) BUN/Creatinine Ratio 16 (6-26) Glucose 108 H (70-99) mg/dL Calculated Osmolality 294 (280-300) Calcium 9.4 (8.6-10.8) mg/dL Total Bilirubin 1.0 (0.2-1.2) mg/dL Direct Bilirubin 0.4 (0.0-0.5) mg/dL Indirect Bilirubin 0.6 (0.0-1.2) mg/dL AST 41 H (5-34) Units/L ALT 14 (0-55) Units/L Alkaline Phosphatase 91 (38-126) Units/L Troponin I (0-0.03) ng/mL B-Natriuretic Peptide (0-100) pg/mL Serum Total Protein 6.4 (6.0-8.3) g/dL Albumin 3.6 (3.5-5.0) g/dL Globulin 2.8 (2.4-3.5) g/dL Albumin/Globulin Ratio 1.3 (1.1-2.2) 02/26/17 02/26/17 02/26/17 Range/Units 13:44 13:44 13:44 WBC (4.3-11.1) K/mcL RBC (4.19-5.50) M/mcL Hgb (12.9-16.9) g/dL Hct (37.5-50.1) % MCV (83.0-100.0) fL MCH (28.0-33.3) pg MCHC (31.6-35.5) g/dL RDW (11.5-14.5) % Plt Count (140-400) K/mcL MPV (9.4-12.4) fL Immature Gran % (0-4) % Seg Neutrophils % % Lymphocytes % % Monocytes % % Eosinophils % % Basophils % % Neutrophils # (1.6-8.9) K/mcL Lymphocytes # (0.6-4.6) K/mcL Monocytes # (0.0-1.3) K/mcL Eosinophils # (0.0-0.6) K/mcL Basophils # (0.0-0.2) K/mcL Nucleated RBCs/100 WBC (0) /100 WBC PT (9.4-12.1) Seconds INR APTT 26.7 (26.0-36.0) Seconds D-Dimer (0-500) ng/mLFEU Sodium (136-145) mEq/L Potassium (3.5-4.5) mEq/L Chloride (98-109) mEq/L Carbon Dioxide (19-29) mEq/L BUN (8-26) mg/dL Creatinine (0.72-1.25) mg/dL Est GFR ( Amer) (> 60) Est GFR (Non-Af Amer) (> 60) BUN/Creatinine Ratio (6-26) Glucose (70-99) mg/dL Calculated Osmolality (280-300) Calcium (8.6-10.8) mg/dL Total Bilirubin (0.2-1.2) mg/dL Direct Bilirubin (0.0-0.5) mg/dL Indirect Bilirubin (0.0-1.2) mg/dL AST (5-34) Units/L ALT (0-55) Units/L Alkaline Phosphatase (38-126) Units/L Troponin I 0.03 (0-0.03) ng/mL B-Natriuretic Peptide 573 H (0-100) pg/mL Serum Total Protein (6.0-8.3) g/dL Albumin (3.5-5.0) g/dL Globulin (2.4-3.5) g/dL Albumin/Globulin Ratio (1.1-2.2) - Radiology Data Radiology results reviewed: Yes I reviewed the patient's radiology results. Chest X-Ray 02/26/17 13:24 IMPRESSION: Interval improvement of bibasilar opacities/atelectasis and right pleural effusion. D/ / Kathleen Leroy MD / Kathleen Leroy MD Interpreting Provider: Kathleen Leroy MD Pulmonary Perfusion Imaging 02/26/17 14:16 IMPRESSION: Low Probability for Pulmonary Embolus. D/ / Pramod Hansen MD / Pramod Hansen MD Interpreting Provider: Pramod Hansen MD - EKG Data EKG attestation: Yes I reviewed and interpreted this EKG. EKG results narrative: EKG done at 1325 shows atrial flutter with a rate of [address] elevation or depression. Left axis deviation. Right bundle branch block present and left anterior fascicular block. EKG done at 1405 shows atrial flutter with a rate of [address] elevation or depression. Left axis deviation. Right bundle branch block present.
[2017-02-26 13:52] LABS: Basophils % 0.4 %; Eosinophils # 0.1 K/mcL (0.0-0.6); Eosinophils % 1.1 %; Hematocrit 40.9 % (37.5-50.1); Hemoglobin 12.9 g/dL (12.9-16.9); Immature Granulocytes % 0.9 % (0-4); Lymphocytes # 1.7 K/mcL (0.6-4.6); Lymphocytes % 16.1 %; Mean Corpuscular HGB Conc 31.5 g/dL (31.6-35.5); Mean Corpuscular Hemoglobin 27.9 pg (28.0-33.3); Mean Corpuscular Volume 88.5 fL (83.0-100.0); Mean Platelet Volume 9.2 fL (9.4-12.4); Monocytes # 0.8 K/mcL (0.0-1.3); Neutrophils # 7.7 K/mcL (1.6-8.9); Nucleated Red Blood Cells 0.2 /100 WBC (0); Platelet Count 177 K/mcL (140-400); Red Blood Count 4.62 M/mcL (4.19-5.50); Red Cell Distribution Width 16.3 % (11.5-14.5); Segmented Neutrophils % 73.5 %
[2017-02-26 13:57] LABS: INR 1.2; Prothrombin Time 13.3 Seconds (9.4-12.1)
[2017-02-26 14:09] LABS: Albumin 3.6 g/dL (3.5-5.0); Albumin/Globulin Ratio 1.3 (1.1-2.2); Bilirubin,Direct 0.4 mg/dL (0.0-0.5); Bilirubin,Indirect 0.6 mg/dL (0.0-1.2); Calcium 9.4 mg/dL (8.6-10.8); Globulin 2.8 g/dL (2.4-3.5); Potassium 3.5 mEq/L (3.5-4.5); Total Protein 6.4 g/dL (6.0-8.3)
[2017-02-26] MEDS ORDERED: *HR* Heparin 5,000 UNIT/ML VIAL IVP PRN ×2 (14:10)
[2017-02-26] MEDS ORDERED: *HR* Heparin 5,000 UNIT/ML VIAL IVP ONE (14:10)
[2017-02-26] MEDS: Heparin 25,000 UNIT/500 ML D5W 25,000 UNIT/500 ML MLS IVC SCH (14:52)
[2017-02-26] MEDS ORDERED: 0.9 % Sodium Chloride 250 ML IVC ONE (16:10)
[2017-02-26] MEDS ORDERED: Ibuprofen 600 MG TABLET PO PRN (17:15)
[2017-02-26] MEDS ORDERED: *HR* OxyCODONE/APAP 10/325 TABLET PO PRN (17:15)
[2017-02-26] MEDS ORDERED: Naloxone 0.4 MG/ML INJ IVP PRN (17:17)
--- NOTE | 2017-02-26 17:28 | Internal Med History&Physical ---
<Nestor Barkley - Last Filed: 02/26/17 19:09> Date of Encounter: 02/26/17 Time of Encounter: 17:25 Assessment and Plan (1) Acute CHF Current visit: Yes Status: Acute new 3 week h/o SOB, had ECHO in cardio office today found a significant decrease in ejection fraction. Prior EF 60% in 2014, now 20% today. New atrial flutter with RVR Cardio consult for further evaluation and recommendation; patient may need heart cath IV lasix one time dose now On cardizem; goal to titrate off and start BB as CCB may further exacerbate CHF continuous tele, continuous spo2, respiratory support PRN titrate for spo2 >92% Qualifiers: Congestive heart failure type: unspecified congestive heart failure type Qualified Code(s): I50.9 - Heart failure, unspecified (2) Echocardiogram abnormal Current visit: Yes Status: Acute see above (3) Dyspnea Current visit: Yes Status: Acute see plan above Qualifiers: Dyspnea type: unspecified Qualified Code(s): R06.00 - Dyspnea, unspecified (4) Atrial flutter Current visit: Yes Status: Acute New diagnosis of a-flutter, no prior hx. Hemodynamically stable, remains SOB, On a cardiaem gtt; goal to titrate CCB to off and start BB Qualifiers: Atrial flutter type: unspecified Qualified Code(s): I48.92 - Unspecified atrial flutter (5) CAD (coronary artery disease) Current visit: Yes Status: Chronic h/o CAD, [place] requiring 4 stents, continue BB, EVELINA and ASA Qualifiers: Coronary Disease-Associated Artery/Lesion type: unspecified vessel or lesion type [place] vs. transplanted heart: unspecified whether [place] or transplanted heart Associated angina: angina presence unspecified Qualified Code(s): I25.10 - Atherosclerotic heart disease of [place] coronary artery without angina pectoris (6) HTN (hypertension) Current visit: Yes Status: Chronic h/o HTN, hemodynamically stable, continue BB, EVELINA, Qualifiers: Hypertension type: essential hypertension Qualified Code(s): I10 - Essential (primary) hypertension (7) HLD (hyperlipidemia) Current visit: No Status: Chronic H/O HLD, continue statin Qualifiers: Hyperlipidemia type: unspecified Qualified Code(s): E78.5 - Hyperlipidemia , unspecified (8) DVT prophylaxis Current visit: Yes Status: Acute heparin drip, titrate per protocol (9) DVT (deep venous thrombosis) Current visit: Yes Status: Suspected suspect DVT, new LLE swelling and intermittent pain, elevated dimer 2121, and SOB, PE negative. BLE venous dopper studies, maintain heparin gtt and titrate per protocol Qualifiers: DVT location: lower extremity Affected thrombotic vein of extremity: iliac Laterality: unspecified laterality Qualified Code(s): I82.429 - Acute embolism and thrombosis of unspecified iliac vein Internal Medicine - H&P: HPI Chief complaint: acute heart failure Increasing shortness of breath Admitted From: Home Plans for Post Hospital Care: Home History of present illness: Mr. Pillai is a 77 year old male with a PMH of arthritis, CAD, HLD, HTN, [place] with stents 3 and knee arthroscopy. Presents to [facility] today from cardiology office. Patient reports that his cardiology office due to worsening shortness of breath. While undergoing echocardiogram he was noted to have a decrease in ejection fraction and acute heart failure. Prior EF was 60% from 2014 now down to 20%. The patient reports a greater than 2 week history of shortness of breath. He reports is more dyspneic and wheezy when attempting to complete ADLs. Additionally, he reports left lower extremity swelling and intermittent pain. Not on any blood thinners no prior history of DVT. CT was found to be in atrial flutter with rapid ventricular response. His recently diagnosed and treated with pneumonia on outpatient basis with by mouth Levaquin. Chest x-ray today shows bibasilar opacities with atelectasis and right pleural effusion that is mildly improved. Past Med Surg Social Fam HX - Past Medical History Medical history: arthritis, coronary artery disease, hyperlipidemia, hypertension Psychiatric history: no psych history - Social History Smoking Status: Never smoker Smokeless Tobacco Status: No Alcohol use: none Drug use: none - Family History Father Living Status: Mother Living Status: Hx Family Cardiac Disorders: Yes Hx Family Endocrine Disorder: Yes Internal Medicine - H&P: Meds Ascorbic Acid [Vitamin C] 600 mg PO DAILY 09/01/16 [History] Aspirin [Lo-Dose Aspirin EC] 81 mg PO DAILY 09/01/16 [History] Cyanocobalamin (Vitamin B-12) [Vitamin B-12] 1,000 mcg SL DAILY 09/01/16 [ History] Ibuprofen [Motrin] 600 mg PO Q8HR PRN 09/01/16 [History] Lisinopril [Zestril] 20 mg PO DAILY 09/01/16 [History] Multivitamin [One Daily Essential] 1 each PO DAILY 09/01/16 [History] Omeprazole 20 mg PO DAILY 09/01/16 [History] Metoprolol XL (24 HR) Succ [Toprol XL] 25 mg PO DAILY 02/26/17 [History] Oxycodone HCl/Acetaminophen [Percocet 10-325 mg Tablet] 1 tab PO Q6H PRN [History] 3 Allergy/AdvReac Type Severity Reaction Status Date / Time No Known Allergies Allergy Verified 02/09/17 09:54 All Systems PM: A 10-system review of systems was performed and is negative for pertinent findings except as documented above in the HPI. - Constitutional Constitutional: fatigue, no chills, no fever(s), no falls, no night sweats - EENT Eyes: no change in vision, no discharge, no pain, no photophobia Ears: no ear discharge, no ear pain, no tinnitus Nose, mouth and throat: no dysphagia, no nasal discharge, no neck pain, no sore throat - Cardiovascular Cardiovascular ROS IM: as per HPI, dyspnea on exertion, edema (Lower extremity) , no chest pain, no diaphoresis, no dyspnea, no irregular heart rhythm, no lightheadedness, no orthopnea, no palpitations, no paroxysmal nocturnal dyspnea , no syncope - Respiratory Respiratory: dyspnea on exertion, no cough, no wheezing, no pain on inspiration , no chest congestion, no excessive phlegm production, no pain with cough - Gastrointestinal Gastrointestinal: no abdominal pain, no diarrhea, no hematemesis, no hematochezia, no melena, no nausea, no vomiting - Musculoskeletal Musculoskeletal ROS IM: as per HPI, no numbness, no tingling - Integumentary Integumentary IM: no rash, no unusual bruising - Neurological Neurological ROS: no confusion, no convulsions, no focal weakness, no numbness, no tingling, no tremor(s) - Hematologic/Lymphatic Hematologic/Lymphatic: no easy bruising - Constitutional Vitals: Temp Pulse Resp BP Pulse Ox 99.0 F 101 20 123/81 98 02/26/17 13:20 02/26/17 16:09 02/26/17 16:09 02/26/17 16:09 02/26/17 16:09 General appearance: Present: cooperative, A&O X 3, no acute distress, answers questions appropriately - Head Head exam: Present: atraumatic, normocephalic - Eye Eye exam: Present: EOMI, PERRL, conjuntiva pink, sclera anicteric Pupils: Present: PERRL - Neck Neck exam general surgery: Present: supple, trachea midline. Absent: lymphadenopathy - Respiratory Respiratory exam: Present: decreased breath sounds, CTAB. Absent: accessory muscle use, rales, rhonchi, wheezes - Cardiovascular Cardiovascular exam: Present: RRR, +S1, +S2, tachycardia. Absent: diastolic murmur, gallop, rubs, systolic murmur - GI/Abdominal GI/Abdominal exam: Present: normal bowel sounds, soft, no peritoneal signs. Absent: distended, firm, guarding, hepatomegaly, rebound, rigid, splenomegaly, tenderness - Extremities Exam Extremities exam: Present: normal capillary refill, pedal edema, warm, radial pulses palpable and symmetrical. Absent: calf tenderness, cyanotic, joint swelling, normal inspection - Neurological Exam Neurological exam: Present: CN II-XII intact, oriented X3, no focal deficits. Absent: pronater drift, facial droop, speech deficit - Skin Skin exam: Present: dry, intact Internal Med - H&P Results - Labs CBC & Chem 7: 02/26/17 13:43 02/26/17 13:44 - EKG Data -: EKG Interpreted by Myself Rate: tachycardia - EKG Data Prior EKG available for review: yes EKG comments: 02/26/17 17:29 Atrial flutter with tachycardia and right bundle branch block. Inferior [place] of indeterminate age - Diagnostic Studies Chest x-ray Status: image reviewed by me Additional comments: Bibasilar opacities remain patient had recent pneumonia diagnosis however new imaging shows interval improvement compared to last imaging Other Images Status: image reviewed by me Additional comments: V/Q scan indicates low probability for PE <Pedro Yoder - Last Filed: 02/27/17 07:38> Date of Encounter: 02/26/17 Internal Medicine - H&P: HPI History of present illness: Mr. Pillai is a 77 year old male All Systems PM: A 10-system review of systems was performed and is negative for pertinent findings except as documented above in the HPI. - Constitutional Vitals: Temp Pulse Resp BP Pulse Ox 97.5 F L 136 18 118/92 97 02/27/17 03:25 02/27/17 05:32 02/27/17 05:32 02/27/17 05:32 02/27/17 05:32 Internal Med - H&P Results - Labs CBC & Chem 7: 02/27/17 02:02 02/27/17 02:02 Labs: Short CBC 02/27/17 Range/Units 02:02 WBC 9.0 (4.3-11.1) K/mcL Hgb 11.6 L (12.9-16.9) g/dL Hct 36.9 L (37.5-50.1) % Plt Count 152 (140-400) K/mcL Neutrophils # 5.7 (1.6-8.9) K/mcL BMP 02/27/17 02:02 Sodium 139 Potassium 3.2 L Chloride 103 Carbon Dioxide 27 BUN 27 H Creatinine 1.52 H Glucose 94 Calcium 9.0 Cardiac Enzymes 02/26/17 02/27/17 Range/Units 20:17 02:02 Troponin I 0.05 H* 0.05 H* (0-0.03) ng/mL - Attending Attestation I independently obtained history and examined this patient and my medical decision-making was reviewed with the nurse practitioner. I agree with the documented findings, disposition and treatment plan as described. My findings are summarized below: Patient presented to the hospital with shortness of breath. On exam he is in no acute distress, speaking in full sentences. Heart is tachycardic and irregular. Telemetry shows a flutter with variable conduction. Plan: EF is 20%. We will continue with Cardizem drip while titrating this down due to the patient's systolic heart failure. Add metoprolol. I have discussed the case with cardiology. Pedro Yoder MD
[2017-02-26] MEDS ORDERED: Furosemide 20 MG/2 ML VIAL IVP ONE (19:52)
[2017-02-26 22:28] LABS: Activated Partial Thrombo Time 204.4 Seconds (26.0-36.0)
[2017-02-27 02:21] LABS: Basophils # 0.1 K/mcL (0.0-0.2); Basophils % 0.6 %; Eosinophils # 0.2 K/mcL (0.0-0.6); Eosinophils % 1.8 %; Hematocrit 36.9 % (37.5-50.1); Hemoglobin 11.6 g/dL (12.9-16.9); Lymphocytes # 2.1 K/mcL (0.6-4.6); Lymphocytes % 23.7 %; Mean Corpuscular HGB Conc 31.4 g/dL (31.6-35.5); Mean Corpuscular Volume 88.9 fL (83.0-100.0); Mean Platelet Volume 9.5 fL (9.4-12.4); Monocytes # 0.8 K/mcL (0.0-1.3); Monocytes % 9.2 %; Neutrophils # 5.7 K/mcL (1.6-8.9); Platelet Count 152 K/mcL (140-400); Red Blood Count 4.15 M/mcL (4.19-5.50); Red Cell Distribution Width 16.3 % (11.5-14.5); Segmented Neutrophils % 63.7 %
[2017-02-27 02:36] LABS: Potassium 3.2 mEq/L (3.5-4.5)
[2017-02-27 02:43] LABS: Activated Partial Thrombo Time 120.2 Seconds (26.0-36.0)
[2017-02-27 05:44] LABS: Activated Partial Thrombo Time 146.2 Seconds (26.0-36.0)
--- NOTE | 2017-02-27 06:43 | Electrocardiograph Report ---
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
--- NOTE | 2017-02-27 06:43 | Electrocardiograph Report ---
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
[2017-02-27] MEDS ORDERED: 0.9 % Sodium Chloride 250 ML ONE (06:55)
[2017-02-27] MEDS ORDERED: *HR* Metoprolol 5 MG/5 ML VIAL IVP ONE (08:54)
[2017-02-27] MEDS: Multivit/Ca/Min/Fe/FA 1 TAB TABLET PO SCH (09:00)
[2017-02-27] MEDS ORDERED: Lisinopril 20 MG TABLET PO SCH (09:00)
[2017-02-27] MEDS ORDERED: Ascorbic Acid 500 MG TABLET PO SCH (09:00)
[2017-02-27] MEDS: Aspirin Enteric Coated 81 MG Tablet PO SCH (09:00)
[2017-02-27] MEDS ORDERED: Metoprolol XL (24 HR) Succ 25 MG TAB.ER.24H PO SCH (09:00)
[2017-02-27] MEDS: Cyanocobalamin (B-12) 1,000 MCG TABLET PO SCH (09:01)
[2017-02-27] MEDS: *HR* Metoprolol 5 MG/5 ML VIAL IVP SCH ×2 (09:14→09:20)
--- NOTE | 2017-02-27 09:15 | Internal Med Progress Note ---
<Raine Garcia - Last Filed: 02/27/17 14:42> Date of Encounter: 02/27/17 Time of Encounter: 09:11 - Assessment and plan (1) Atrial flutter Current Visit: Yes Status: Acute Assessment and plan: New diagnosis of A- flutter. Unresponsive to beta alisha outpatient BP 136 may be due to cardiomyopathy vs pneumonia vs other infectious etiology patient is hemodynamically stable Cardizem was stopped due to lowering of blood pressure troponin 0.05 elevated DDimer 2120 V/Q scan demonstrated low PE probability CXR showed improved bilateral opacities in right pleural effusion from prior chest x-ray -metoprolol IV -digoxin started -Rocephin -Cardiology consulted, recommendations appreciated -possible LHC and WILLOW, cardiology discussed with the patient -urinalysis ordered -continue heparin -continues telemetry Qualifiers: Atrial flutter type: typical Qualified Code(s): I48.3 - Typical atrial flutter (2) Acute CHF Current Visit: Yes Status: Acute Assessment and plan: Patient has a history of CHF Significantly reduced EF=20% on 02/26/2017, EF=60% in 2014 BNP 450 Qualifiers: Congestive heart failure type: unspecified congestive heart failure type Qualified Code(s): I50.9 - Heart failure, unspecified (3) Echocardiogram abnormal Current Visit: Yes Status: Acute Assessment and plan: Patient has a history of CHF Significantly reduced EF=20% on 02/26/2017, EF=60% in 2014 BNP 450 -see plan above (4) CAD (coronary artery disease) Current Visit: Yes Status: Chronic Assessment and plan: History of [place] 3 years ago stents x 3 -Continue home lisinopril, metoprolol, asa Qualifiers: Coronary Disease-Associated Artery/Lesion type: unspecified vessel or lesion type [place] vs. transplanted heart: unspecified whether [place] or transplanted heart Associated angina: angina presence unspecified Qualified Code(s): I25.10 - Atherosclerotic heart disease of [place] coronary artery without angina pectoris (5) Dyspnea Current Visit: Yes Status: Acute Assessment and plan: Patient reports shortness breath but is improved from admission 97% on room air Qualifiers: Dyspnea type: unspecified Qualified Code(s): R06.00 - Dyspnea, unspecified (6) HTN (hypertension) Current Visit: Yes Status: Chronic Assessment and plan: History of hypertension -continue home medications Qualifiers: Hypertension type: essential hypertension Qualified Code(s): I10 - Essential (primary) hypertension (7) HLD (hyperlipidemia) Current Visit: No Status: Chronic Assessment and plan: History of hyperlipidemia Qualifiers: Hyperlipidemia type: unspecified Qualified Code(s): E78.5 - Hyperlipidemia , unspecified (8) DVT prophylaxis Current Visit: Yes Status: Acute Assessment and plan: No DVT Patient reports nontender left lower extremity swelling left knee arthroscopy 6 month ago DDimer 2120 lower extremity Doppler- negative for DVT V/Q scan low probability for PE non-erythematous, nontender, minimal edema continue Heparin - Subjective Interval history: Laying down in bed comfortably in no distress He denies current chest pain however does submit some shortness of breath his nurse is giving him his Lopressor he has no complaints at this time - Constitutional Vitals: Temp Pulse Resp BP Pulse Ox 97.5 F L 136 18 118/92 97 02/27/17 03:25 02/27/17 05:32 02/27/17 05:32 02/27/17 05:32 02/27/17 05:32 General appearance: Present: cooperative, A&O X 3, no acute distress, answers questions appropriately Exam: Gen.: Vitals noted. No acute distress. AAOx3 HEENT: oropharynx clear, Normocephalic, atraumatic Neck: Supple. No adenopathy. Cardiac: tachycardic, no murmur Pulmonary: minimal bibasilar wheezing and rales. no rhonchi, equal chest expansion Abdomen: soft, nontender, Bowel sounds noted, no guarding Extremities: minimal BLE edema, nontender calf, no cyanosis or clubbing Neuro: A&Ox3, moves all extremities Psych: Appropriate mood and behavior Internal Medicine: Result - Labs CBC & Chem 7: 02/27/17 02:02 02/27/17 02:02 Labs: Short CBC 02/27/17 Range/Units 02:02 WBC 9.0 (4.3-11.1) K/mcL Hgb 11.6 L (12.9-16.9) g/dL Hct 36.9 L (37.5-50.1) % Plt Count 152 (140-400) K/mcL Neutrophils # 5.7 (1.6-8.9) K/mcL BMP 02/27/17 02:02 Sodium 139 Potassium 3.2 L Chloride 103 Carbon Dioxide 27 BUN 27 H Creatinine 1.52 H Glucose 94 Calcium 9.0 Cardiac Enzymes 02/26/17 02/27/17 Range/Units 20:17 02:02 Troponin I 0.05 H* 0.05 H* (0-0.03) ng/mL - ABG Interpretation ABG results: PT/INR, D-dimer PT 13.3 Seconds (9.4-12.1) H 02/26/17 13:44 D-Dimer 2121 ng/mLFEU (0-500) H 02/26/17 13:44 Consult Discharge Plan - Plan Referrals: Karen Richmond [employer] [Primary Care Provider] - <Greg Akins H - Last Filed: 02/27/17 15:57> Date of Encounter: 02/27/17 - Constitutional Vitals: Temp Pulse Resp BP Pulse Ox 97.5 F L 137 19 104/85 97 02/27/17 03:25 02/27/17 15:00 02/27/17 15:00 02/27/17 15:00 02/27/17 15:00 Internal Medicine: Result - Labs CBC & Chem 7: 02/27/17 02:02 02/27/17 02:02 Labs: Short CBC 02/27/17 Range/Units 02:02 WBC 9.0 (4.3-11.1) K/mcL Hgb 11.6 L (12.9-16.9) g/dL Hct 36.9 L (37.5-50.1) % Plt Count 152 (140-400) K/mcL Neutrophils # 5.7 (1.6-8.9) K/mcL BMP 02/27/17 02:02 Sodium 139 Potassium 3.2 L Chloride 103 Carbon Dioxide 27 BUN 27 H Creatinine 1.52 H Glucose 94 Calcium 9.0 Cardiac Enzymes 02/26/17 02/27/17 Range/Units 20:17 02:02 Troponin I 0.05 H* 0.05 H* (0-0.03) ng/mL - ABG Interpretation ABG results: PT/INR, D-dimer PT 13.3 Seconds (9.4-12.1) H 02/26/17 13:44 D-Dimer 2121 ng/mLFEU (0-500) H 02/26/17 13:44 - Attending Attestation Atrial flutter with RVR, unclear trigger Order a UA, chest x-ray questionable for possible pneumonia Start Rocephin Continue digoxin, metoprolol. Cardiology recommendations appreciated I examined this patient and my medical decision-making was reviewed with the Resident Physician. I agree with the documented findings, disposition and treatment plan as described except to the extent set forth below.
--- NOTE | 2017-02-27 12:34 | Cardiology Consult Note ---
Date of Encounter: 02/27/17 Time of Encounter: 12:28 (aflutter) Assessment and Plan (1) Atrial flutter with rapid ventricular response Current Visit: Yes Status: Acute Likely benefit from WILLOW/CVE due to borderline BP and Low EF. More than 48 hours in flutter failed outpatient rate control with BB. Consider Digoxin load (ARF) if unable to tolerate WILLOW. 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 LHC likely when patient euvolemic and stable, non ischemic troponins Qualifiers: Cardiomyopathy type: unspecified Qualified Code(s): I42.9 - Cardiomyopathy , unspecified Discussion w patient/family: The assessment and plan as outlined above was discussed with the patient and/or family members who expressed understanding and agreement. All questions were answered. Thank you for involving us in the care of your patient. Please call with any questions. History of Present Illness Consult date: 02/27/17 Chief complaint: Atrial flutter , CHF History of present illness: Mr. Pillai is a 77 year old male with h/o CAD s/p PCI of the CIRC and RCA with BMS few years ago. Presents with new onset CHF 60% to 20% global on recent ECHO 02/26/2017. Now in flutter at rate of 130's slight improvement with PRN IV BB overnight. CCB discontinued due to EF and borderline BP. Denies any CP but describes NYHA Class 3-4 with orthopnea prior to presentation. Mild elevation of troponin non ischemic pattern with BNP of around 450. Mild ARF not on lasix. D/W patient need for possible WILLOW/CVE for borderline low BP and EF 20%. Patient likely would benefit from LHC due to previous BMS stents in 2 vessels years ago. Currently on Heparin IV for aflutter. Past Med Surg Social Fam HX - Past Medical History Medical history: arthritis, coronary artery disease, hyperlipidemia, hypertension Psychiatric history: no psych history - Past Surgical History Surgical History: knee replacement - Social History Smoking Status: Never smoker Smokeless Tobacco Status: No Alcohol use: none Drug use: none - Family History Father Living Status: Mother Living Status: Age at : 71 Cause of : [place] Hx Family Cardiac Disorders: Yes Hx Family Respiratory Disorders: Yes Hx Family Endocrine Disorder: Yes Hx Family Medical Disorders: Yes Medications and Allergies Ascorbic Acid [Vitamin C] 600 mg PO DAILY 09/01/16 [History] Aspirin [Lo-Dose Aspirin EC] 81 mg PO DAILY 09/01/16 [History] Cyanocobalamin (Vitamin B-12) [Vitamin B-12] 1,000 mcg SL DAILY 09/01/16 [ History] Ibuprofen [Motrin] 600 mg PO Q8HR PRN 09/01/16 [History] Lisinopril [Zestril] 20 mg PO DAILY 09/01/16 [History] Multivitamin [One Daily Essential] 1 each PO DAILY 09/01/16 [History] Omeprazole 20 mg PO DAILY 09/01/16 [History] Metoprolol XL (24 HR) Succ [Toprol XL] 25 mg PO DAILY 02/26/17 [History] Oxycodone HCl/Acetaminophen [Percocet 10-325 mg Tablet] 1 tab PO Q6H PRN [History] 3 Allergy/AdvReac Type Severity Reaction Status Date / Time No Known Allergies Allergy Verified 02/09/17 09:54 All Systems Review: A 10-system review of systems was performed and is negative for pertinent findings except as documented above in the HPI. Physical Examination Cardiac: Reg Rate and Rhythm (fast and regular ) Lungs: Normal Breath Sounds (mildly diminished bibasilar, no crackles or wheezes ) Extremities: No Edema (bilateral le edema) Results 02/27/17 02:02 02/27/17 02:02 Lab Results 02/26/17 02/26/17 02/27/17 20:17 21:46 02:02 WBC Hgb Hct Plt Count APTT 204.4 H* D Sodium Potassium Chloride Carbon Dioxide BUN Creatinine Glucose Calcium Troponin I 0.05 H* 0.05 H* 02/27/17 02/27/17 02/27/17 02:02 02:02 02:02 WBC 9.0 Hgb 11.6 L Hct 36.9 L Plt Count 152 APTT 120.2 H* Sodium 139 Potassium 3.2 L Chloride 103 Carbon Dioxide 27 BUN 27 H Creatinine 1.52 H Glucose 94 Calcium 9.0 Troponin I 02/27/17 05:09 WBC Hgb Hct Plt Count APTT 146.2 H* Sodium Potassium Chloride Carbon Dioxide BUN Creatinine Glucose Calcium Troponin I - Imaging and Cardiology Chest Xray: pending, report reviewed Echo: report reviewed Cardiac cath: report reviewed - EKG Interpretation EKG results cardiology: personally reviewed (atrial flutter) Consult Discharge Plan - Plan Referrals: Karen Richmond, [facility] [Primary Care Provider] -
[2017-02-27] MEDS ORDERED: *HR* Digoxin 0.5 MG/2 ML AMPUL IVP ONE ×2 (12:55→19:00)
[2017-02-27 15:27] LABS: Heparin anti-factor XA UFH 0.6 IU/mL (0.30-0.70)
[2017-02-27 15:27] LABS: Heparin anti-factor XA UFH 0.77 IU/mL (0.30-0.70)
[2017-02-27] MEDS: Heparin 25,000 UNIT/500 ML D5W 25,000 UNIT/500 ML MLS IVC SCH (15:27)
[2017-02-27 15:28] LABS: Heparin anti-factor XA UFH 0.96 IU/mL (0.30-0.70)
[2017-02-28 05:40] LABS: Basophils # 0.1 K/mcL (0.0-0.2); Basophils % 0.6 %; Eosinophils # 0.2 K/mcL (0.0-0.6); Eosinophils % 1.7 %; Hematocrit 39.4 % (37.5-50.1); Hemoglobin 12.2 g/dL (12.9-16.9); Lymphocytes # 1.7 K/mcL (0.6-4.6); Lymphocytes % 18.8 %; Mean Corpuscular Volume 90.4 fL (83.0-100.0); Mean Platelet Volume 9.7 fL (9.4-12.4); Monocytes # 0.9 K/mcL (0.0-1.3); Monocytes % 9.7 %; Neutrophils # 6.1 K/mcL (1.6-8.9); Platelet Count 166 K/mcL (140-400); Red Blood Count 4.36 M/mcL (4.19-5.50); Red Cell Distribution Width 16.6 % (11.5-14.5); Segmented Neutrophils % 68.2 %
[2017-02-28 05:53] LABS: Calcium 9.7 mg/dL (8.6-10.8)
--- NOTE | 2017-02-28 09:05 | Internal Med Progress Note ---
Addendum entered and electronically signed by Raine Garcia DO 02/28/17 09:15: Will continue higher dose of digoxin. Original Note: <Raine Garcia - Last Filed: 02/28/17 09:02> Date of Encounter: 02/28/17 Time of Encounter: 09:02 - Assessment and plan (1) Atrial flutter Current Visit: Yes Status: Acute Assessment and plan: New diagnosis of A- flutter. Unresponsive to beta alisha outpatient BP 100 may be due to cardiomyopathy vs pneumonia vs other infectious etiology patient is hemodynamically stable Cardizem was stopped due to lowering of blood pressure troponin 0.05 elevated DDimer 2120 V/Q scan demonstrated low PE probability CXR showed right lower lobe atelectasis, no change from prior chest x-ray -possible LHC and WILLOW, cardiology stated may happen Thursday once BP under control -metoprolol 50 TID, Lopressor IV PRN -Rocephin day 2 -Cardiology consulted, recommendations appreciated -urinalysis ordered -continue heparin -continues telemetry Qualifiers: Atrial flutter type: typical Qualified Code(s): I48.3 - Typical atrial flutter (2) Acute CHF Current Visit: Yes Status: Acute Assessment and plan: Patient has a history of CHF Significantly reduced EF=20% on 02/26/2017, EF=60% in 2014 BNP 450 CXR showed right lower lobe atelectasis, no change from prior chest x-ray Qualifiers: Congestive heart failure type: unspecified congestive heart failure type Qualified Code(s): I50.9 - Heart failure, unspecified (3) Echocardiogram abnormal Current Visit: Yes Status: Acute Assessment and plan: Patient has a history of CHF Significantly reduced EF=20% on 02/26/2017, EF=60% in 2014 BNP 450 -see plan above (4) CAD (coronary artery disease) Current Visit: Yes Status: Chronic Assessment and plan: History of [place] 3 years ago stents x 3 -Continue home lisinopril, metoprolol, asa Qualifiers: Coronary Disease-Associated Artery/Lesion type: unspecified vessel or lesion type [place] vs. transplanted heart: unspecified whether [place] or transplanted heart Associated angina: angina presence unspecified Qualified Code(s): I25.10 - Atherosclerotic heart disease of [place] coronary artery without angina pectoris (5) Dyspnea Current Visit: Yes Status: Acute Assessment and plan: Patient reports shortness breath is currently on 2 L oxygen 94% sat Qualifiers: Dyspnea type: unspecified Qualified Code(s): R06.00 - Dyspnea, unspecified (6) HTN (hypertension) Current Visit: Yes Status: Chronic Assessment and plan: History of hypertension -continue home medications Qualifiers: Hypertension type: essential hypertension Qualified Code(s): I10 - Essential (primary) hypertension (7) HLD (hyperlipidemia) Current Visit: No Status: Chronic Assessment and plan: History of hyperlipidemia Qualifiers: Hyperlipidemia type: unspecified Qualified Code(s): E78.5 - Hyperlipidemia , unspecified (8) DVT prophylaxis Current Visit: Yes Status: Acute Assessment and plan: No DVT Patient reports nontender left lower extremity swelling left knee arthroscopy 6 month ago DDimer 2120 lower extremity Doppler- negative for DVT V/Q scan low probability for PE non-erythematous, nontender, minimal edema continue Heparin - Subjective Interval history: Patient is alert and oriented times 3 in no acute distress he is sitting on edge of bed eating breakfast He denies current chest pain however does admit shortness of breath, on 2L oxygen reports he spoke with cardiology yesterday about possible left heart he has no complaints at this time - Constitutional Vitals: Temp Pulse Resp BP Pulse Ox 97.7 F 100 15 105/88 94 02/28/17 06:47 02/28/17 06:47 02/28/17 06:47 02/28/17 06:47 02/28/17 06:47 General appearance: Present: cooperative, A&O X 3, no acute distress, answers questions appropriately Exam: Gen.: Vitals noted. No acute distress. AAOx3 HEENT: oropharynx clear, Normocephalic, atraumatic Cardiac: tachycardic, no murmur, +S1/S2 Pulmonary: CTA bilaterally, no wheezes, rales or rhonchi, equal chest expansion Abdomen: soft, nontender, Bowel sounds noted, no guarding Extremities: minimal BLE edema, nontender calf, no cyanosis or clubbing Neuro: A&Ox3, moves all extremities Psych: Appropriate mood and behavior Internal Medicine: Result - Labs CBC & Chem 7: 02/28/17 05:13 02/28/17 05:13 Labs: Short CBC 02/28/17 Range/Units 05:13 WBC 8.9 (4.3-11.1) K/mcL Hgb 12.2 L (12.9-16.9) g/dL Hct 39.4 (37.5-50.1) % Plt Count 166 (140-400) K/mcL Neutrophils # 6.1 (1.6-8.9) K/mcL BMP 02/28/17 05:13 Sodium 140 Potassium 4.0 Chloride 105 Carbon Dioxide 27 BUN 29 H Creatinine 1.48 H Glucose 111 H Calcium 9.7 - ABG Interpretation ABG results: PT/INR, D-dimer PT 13.3 Seconds (9.4-12.1) H 02/26/17 13:44 D-Dimer 2121 ng/mLFEU (0-500) H 02/26/17 13:44 - Impressions Impressions Chest X-Ray 02/27/17 12:57 IMPRESSION: Right lower lobe atelectasis without significant change D/ / Antonio Morrow MD / Antonio Morrow MD Interpreting Provider: Antonio Morrow MD Consult Discharge Plan - Plan Referrals: Karen Richmond, [facility] [employer] [Primary Care Provider] - <Greg Akins H - Last Filed: 02/28/17 10:18> Date of Encounter: 02/28/17 - Constitutional Vitals: Temp Pulse Resp BP Pulse Ox 97.7 F 100 15 105/88 94 02/28/17 06:47 02/28/17 06:47 02/28/17 06:47 02/28/17 06:47 02/28/17 06:47 Internal Medicine: Result - Labs CBC & Chem 7: 02/28/17 05:13 02/28/17 05:13 Labs: Short CBC 02/28/17 Range/Units 05:13 WBC 8.9 (4.3-11.1) K/mcL Hgb 12.2 L (12.9-16.9) g/dL Hct 39.4 (37.5-50.1) % Plt Count 166 (140-400) K/mcL Neutrophils # 6.1 (1.6-8.9) K/mcL BMP 02/28/17 05:13 Sodium 140 Potassium 4.0 Chloride 105 Carbon Dioxide 27 BUN 29 H Creatinine 1.48 H Glucose 111 H Calcium 9.7 - ABG Interpretation ABG results: PT/INR, D-dimer PT 13.3 Seconds (9.4-12.1) H 02/26/17 13:44 D-Dimer 2121 ng/mLFEU (0-500) H 02/26/17 13:44 - Impressions Impressions Chest X-Ray 02/27/17 12:57 IMPRESSION: Right lower lobe atelectasis without significant change D/ / Antonio Morrow MD / Antonio Morrow MD Interpreting Provider: Antonio Morrow MD - Attending Attestation Atrial flutter with RVR, unclear trigger Re-order a UA, chest x-ray questionable for possible pneumonia Continue Rocephin Continue digoxin, metoprolol. Cardiology recommendations appreciated I examined this patient and my medical decision-making was reviewed with the Resident Physician. I agree with the documented findings, disposition and treatment plan as described except to the extent set forth below.
[2017-02-28] MEDS: Cyanocobalamin (B-12) 1,000 MCG TABLET PO SCH (10:06)
[2017-02-28] MEDS: Aspirin Enteric Coated 81 MG Tablet PO SCH (10:06)
[2017-02-28] MEDS: *HR* Digoxin 0.5 MG/2 ML AMPUL IVP SCH ×2 (10:06→15:30)
[2017-02-28] MEDS: Multivit/Ca/Min/Fe/FA 1 TAB TABLET PO SCH (10:06)
--- NOTE | 2017-02-28 10:25 | Cardiology Progress Note ---
Date of Encounter: 02/28/17 Time of Encounter: 10:22 Assessment and Plan (1) Atrial flutter with rapid ventricular response Current Visit: Yes Status: Acute HR improved since yesterday, but still not optimally controlled. 12 hr tele AVG HR 108. Will digoxin load with 0.25mg IV x 2 doses then start 125mcg daily of Digoxin tomorrow morning. Switched to short acting BB--Lopressor 50mg TID. Plan to switch to long acting Toprol XL after he is rate controlled on lopressor. On heparin gtt for anticoagulation since [facility] is anticipated prior to discharge. CHADSVASC is 4 (Age, HTN, CAD, CHF) so care home anticoagulation is recommended. Determine type--NOAC vs Coumadin after [facility]. (2) Cardiomyopathy Current Visit: Yes Status: Acute EF newly reduced to 20%--NICMP vs ICMP. NICMP suspected secondary to tachycardia induced from his A-Flutter with RVR. However, ischemic cause needs to be ruled out, as he does have hx of CAD ans BMS to CIRC and RCA. [facility] tetatively plan for Thursday. On Lopressor--switch to Toprol XL once rate controlled. Currently not on ACEi/ARB due to attempting to achieve HR control and allow for BP room. ACEi/ARB prior to d/c if BP and renal function will tolerate. Qualifiers: Cardiomyopathy type: unspecified Qualified Code(s): I42.9 - Cardiomyopathy , unspecified (3) CAD (coronary artery disease) Current Visit: Yes Status: Chronic Hx of PCI. ASA, Statin, BB. Qualifiers: Coronary Disease-Associated Artery/Lesion type: unspecified vessel or lesion type [place] vs. transplanted heart: unspecified whether [place] or transplanted heart Associated angina: angina presence unspecified Qualified Code(s): I25.10 - Atherosclerotic heart disease of [place] coronary artery without angina pectoris Discussion w patient/family: The assessment and plan as outlined above was discussed with the patient and/or family members who expressed understanding and agreement. All questions were answered. Thank you for involving us in the care of your patient. Please call with any questions. I will discuss all the above with Dr. King and make changes as necessary. Subjective Principal diagnosis: A-Flutter, CMP Interval history: Pt reports dyspnea is improving each day. He denies chest pain. HR improved, but still not at goal. 12 hr tele AVG HR 108, A-Flutter. Objective Vital Signs, Last 4 Hours Temp Pulse Resp BP Pulse Ox 02/28/17 06:47 97.7 F 100 15 105/88 94 Vital Signs Temp Pulse Resp BP Pulse Ox 02/28/17 06:47 97.7 F 100 15 105/88 94 02/28/17 04:40 97.8 F 109 18 145/86 96 02/28/17 00:21 97.5 F L 97 20 109/76 95 02/27/17 20:53 134 16 115/89 02/27/17 20:23 97.5 F L 135 20 157/109 92 02/27/17 15:00 137 19 104/85 97 Intake and Output 02/27/17 02/28/17 02/28/17 23:59 07:59 15:59 Intake Total 240 / 240 200 / 200 Output Total 525 / 525 520 / 520 Balance -285 / -285 -320 / -320 Intake: Oral 240 / 240 200 / 200 Output: Urine 525 / 525 520 / 520 Other: # Voids 0 Weight 100.4 kg Patient Weight 02/28/17 23:59 Weight 100.4 kg General: Conversant, No Apparent Distress HEENT: Atraumatic, Normocephaly, Mucus Membranes Moist Neck: Normal carotid pulses Cardiac: Other (irregular) Lungs: Other (diminished) Neuro: Alert and responsive, No focal deficits noted Abdomen: Soft, Non-Tender Skin: No rashes noted on visualized skin Musculoskeletal: No Chest Wall Tenderness Extremities: Other (1+ BLE edema) Results 02/28/17 05:13 02/28/17 05:13 Lab Results 02/27/17 02/27/17 02/28/17 12:24 17:57 05:13 WBC 8.9 Hgb 12.2 L Hct 39.4 Plt Count 166 APTT 62.3 H D 49.7 H Sodium Potassium Chloride Carbon Dioxide BUN Creatinine Glucose Calcium 02/28/17 05:13 WBC Hgb Hct Plt Count APTT Sodium 140 Potassium 4.0 Chloride 105 Carbon Dioxide 27 BUN 29 H Creatinine 1.48 H Glucose 111 H Calcium 9.7 Short CBC 02/28/17 Range/Units 05:13 WBC 8.9 (4.3-11.1) K/mcL Hgb 12.2 L (12.9-16.9) g/dL Hct 39.4 (37.5-50.1) % Plt Count 166 (140-400) K/mcL Neutrophils # 6.1 (1.6-8.9) K/mcL BMP 02/28/17 Range/Units 05:13 Sodium 140 (136-145) mEq/L Potassium 4.0 (3.5-4.5) mEq/L Chloride 105 (98-109) mEq/L Carbon Dioxide 27 (19-29) mEq/L BUN 29 H (8-26) mg/dL Creatinine 1.48 H (0.72-1.25) mg/dL Glucose 111 H (70-99) mg/dL Calcium 9.7 (8.6-10.8) mg/dL Impressions Chest X-Ray 02/27/17 12:57 IMPRESSION: Right lower lobe atelectasis without significant change D/ / Antonio Morrow MD / Antonio Morrow MD Interpreting Provider: Antonio Morrow MD Active Medications Aspirin (Aspirin Ec) 81 mg PO DAILY CHARITY Stop: 08/29/17 09:01 Last Admin: 02/28/17 10:06 Dose: 81 mg Cyanocobalamin (Vitamin B12) 1,000 mcg PO DAILY CHARITY Stop: 08/29/17 09:01 Last Admin: 02/28/17 10:06 Dose: 1,000 mcg Digoxin (Lanoxin) 0.25 mg IVP Q6H CHARITY Stop: 02/28/17 15:46 Last Admin: 02/28/17 10:06 Dose: 0.25 mg Digoxin (Lanoxin) 0.125 mg PO DAILY CHARITY Stop: 08/31/17 09:01 Heparin Sodium (Porcine) (Heparin) 7,100 unit 70 unit/kg (7100 unit) IVP Q6HR PRN PRN Reason: SEE COMMENTS Stop: 08/28/17 14:11 Heparin Sodium (Porcine) (Heparin) 3,600 unit 35 unit/kg (3600 unit) IVP Q6H PRN PRN Reason: SEE COMMENTS Stop: 08/28/17 14:11 Heparin Sodium/Dextrose (Heparin 25,000 Unit/500 Ml D5w) 25,000 unit in 500 mls @ 28.449 mls/hr IVC .[id number] CHARITY; 14 UNIT/KG/HR PRN Reason: Protocol Stop: 08/28/17 14:16 Last Admin: 02/27/17 15:27 Dose: 8.07 unit/kg/hr, 16.4 mls/hr Ceftriaxone Sodium 1,000 mg/ (Dextrose) 100 mls @ 200 mls/hr IVPB Q24H CHARITY Stop: 08/29/17 14:01 Last Admin: 02/27/17 15:12 Dose: 200 mls/hr Ibuprofen (Motrin) 600 mg PO Q8HR PRN; Protocol PRN Reason: Mild Pain Stop: 08/28/17 17:16 Metoprolol Tartrate (Lopressor) 50 mg PO TID CHARITY Stop: 08/29/17 20:01 Last Admin: 02/28/17 10:06 Dose: 50 mg Multivitamins/Calcium (Thera M Plus) 1 tab PO DAILY CHARITY Stop: 08/29/17 09:01 Last Admin: 02/28/17 10:06 Dose: 1 tab Naloxone HCl (Narcan) 0.4 mg IVP Q2MIN PRN PRN Reason: Opioid Reversal Stop: 08/28/17 17:18 Omeprazole (Prilosec) 20 mg PO DAILY [facility] Stop: 08/29/17 09:01 Last Admin: 02/28/17 10:06 Dose: 20 mg Oxycodone/Acetaminophen (Percocet 10/325) 1 each PO Q6H PRN PRN Reason: Pain Stop: 08/28/17 17:16 - Imaging and Cardiology Echo: report reviewed - EKG Interpretation EKG results cardiology: other (12 hr tele AVG HR 108, A-Flutter) Consult Discharge Plan - Plan Referrals: Karen Richmond, DIRECTOR OF PRIMARY [Primary Care Provider] -
[2017-02-28] MEDS: Heparin 25,000 UNIT/500 ML D5W 25,000 UNIT/500 ML MLS IVC SCH (19:21)
[2017-03-01 03:01] LABS: Basophils # 0.1 K/mcL (0.0-0.2); Basophils % 0.5 %; Eosinophils # 0.2 K/mcL (0.0-0.6); Eosinophils % 1.5 %; Hematocrit 37.3 % (37.5-50.1); Hemoglobin 11.6 g/dL (12.9-16.9); Immature Granulocytes % 0.9 % (0-4); Lymphocytes # 1.8 K/mcL (0.6-4.6); Lymphocytes % 17.9 %; Mean Corpuscular HGB Conc 31.1 g/dL (31.6-35.5); Mean Corpuscular Hemoglobin 28.3 pg (28.0-33.3); Mean Platelet Volume 9.7 fL (9.4-12.4); Monocytes # 0.8 K/mcL (0.0-1.3); Monocytes % 8.3 %; Neutrophils # 7.1 K/mcL (1.6-8.9); Platelet Count 173 K/mcL (140-400); Red Cell Distribution Width 16.3 % (11.5-14.5); Segmented Neutrophils % 70.9 %
[2017-03-01 03:15] LABS: BUN/Creatinine Ratio 22 (6-26); Blood Urea Nitrogen 30 mg/dL (8-26); Calcium 9.4 mg/dL (8.6-10.8); Carbon Dioxide 25 mEq/L (19-29); Chloride 107 mEq/L (98-109); Glucose 123 mg/dL (70-99); Osmolality,Calculated 300 (280-300); Potassium 3.9 mEq/L (3.5-4.5); Sodium 141 mEq/L (136-145); eGFR For African Americans > 60 (> 60); eGFR For Non-African Americans 52 (> 60)
--- NOTE | 2017-03-01 08:37 | Internal Med Progress Note ---
<Raine Garcia - Last Filed: 03/01/17 08:33> Date of Encounter: 03/01/17 Time of Encounter: 08:34 - Assessment and plan (1) Atrial flutter Current Visit: Yes Status: Acute Assessment and plan: New diagnosis of A- flutter. Unresponsive to beta alisha outpatient controlled BP 65-76 may be due to cardiomyopathy vs pneumonia vs other infectious etiology patient is hemodynamically stable troponin 0.05 elevated DDimer 2120 V/Q scan demonstrated low PE probability CXR showed right lower lobe atelectasis, no change from prior chest x-ray -[facility] Thursday according to cardiology once BP under control -digoxin -metoprolol 50 TID, Lopressor IV PRN -Rocephin day 3 -Cardiology consulted, recommendations appreciated -urinalysis ordered -continue heparin -continues telemetry Qualifiers: Atrial flutter type: typical Qualified Code(s): I48.3 - Typical atrial flutter (2) Acute CHF Current Visit: Yes Status: Acute Assessment and plan: Patient has a history of CHF Significantly reduced EF=20% on 02/26/2017, EF=60% in 2014 BNP 450 CXR showed right lower lobe atelectasis, no change from prior chest x-ray Qualifiers: Congestive heart failure type: unspecified congestive heart failure type Qualified Code(s): I50.9 - Heart failure, unspecified (3) Echocardiogram abnormal Current Visit: Yes Status: Acute Assessment and plan: Patient has a history of CHF Significantly reduced EF=20% on 02/26/2017, EF=60% in 2014 BNP 450 -see plan above (4) CAD (coronary artery disease) Current Visit: Yes Status: Chronic Assessment and plan: History of [place] 3 years ago stents x 3 -Continue home lisinopril, metoprolol, asa Qualifiers: Coronary Disease-Associated Artery/Lesion type: unspecified vessel or lesion type [place] vs. transplanted heart: unspecified whether [place] or transplanted heart Associated angina: angina presence unspecified Qualified Code(s): I25.10 - Atherosclerotic heart disease of [place] coronary artery without angina pectoris (5) Dyspnea Current Visit: Yes Status: Acute Assessment and plan: Patient reports shortness breath is currently on 2 L oxygen 94% sat Qualifiers: Dyspnea type: unspecified Qualified Code(s): R06.00 - Dyspnea, unspecified (6) HTN (hypertension) Current Visit: Yes Status: Chronic Assessment and plan: History of hypertension -continue home medications Qualifiers: Hypertension type: essential hypertension Qualified Code(s): I10 - Essential (primary) hypertension (7) HLD (hyperlipidemia) Current Visit: No Status: Chronic Assessment and plan: History of hyperlipidemia Qualifiers: Hyperlipidemia type: unspecified Qualified Code(s): E78.5 - Hyperlipidemia , unspecified (8) DVT prophylaxis Current Visit: Yes Status: Acute Assessment and plan: No DVT Patient reports nontender left lower extremity swelling left knee arthroscopy 6 month ago DDimer 2120 lower extremity Doppler- negative for DVT V/Q scan low probability for PE non-erythematous, nontender, minimal edema continue Heparin - Subjective Interval history: Patient is alert and oriented times 3 in no acute distress he is sitting in a chair eating breakfast He denies current chest pain however does admit a little shortness of breath, on room air cardiology said that heart cath will be tomorrow has only complaint is left leg edema - Constitutional Vitals: Temp Pulse Resp BP Pulse Ox 97.7 F 65 12 145/88 98 03/01/17 07:40 03/01/17 07:40 03/01/17 07:40 03/01/17 07:40 03/01/17 07:40 General appearance: Present: cooperative, A&O X 3, no acute distress, answers questions appropriately Exam: Gen.: Vitals noted. No acute distress. AAOx3 HEENT: oropharynx clear, Normocephalic, atraumatic Neck: Supple. No adenopathy. Cardiac: irregular, no murmur Pulmonary: + wheezes diffusely bilateral,no rales or rhonchi, equal chest expansion Abdomen: soft, nontender, Bowel sounds noted, no guarding Extremities: +BLE edema, nontender calf, no cyanosis or clubbing Neuro: A&Ox3, moves all extremities Psych: Appropriate mood and behavior Internal Medicine: Result - Labs CBC & Chem 7: 03/01/17 02:40 03/01/17 02:40 Labs: Short CBC 03/01/17 Range/Units 02:40 WBC 10.0 (4.3-11.1) K/mcL Hgb 11.6 L (12.9-16.9) g/dL Hct 37.3 L (37.5-50.1) % Plt Count 173 (140-400) K/mcL Neutrophils # 7.1 (1.6-8.9) K/mcL [facility] 03/01/17 02:40 Sodium 141 Potassium 3.9 Chloride 107 Carbon Dioxide 25 BUN 30 H Creatinine 1.34 H Glucose 123 H Calcium 9.4 - ABG Interpretation ABG results: PT/INR, D-dimer PT 13.3 Seconds (9.4-12.1) H 02/26/17 13:44 D-Dimer 2121 ng/mLFEU (0-500) H 02/26/17 13:44 Consult Discharge Plan - Plan Referrals: Karen Richmond, SUBSCRIPTION CLERK [Primary Care Provider] - <Greg Akins H - Last Filed: 03/01/17 10:49> Date of Encounter: 03/01/17 - Constitutional Vitals: Temp Pulse Resp BP Pulse Ox 97.7 F 65 12 145/88 98 03/01/17 07:40 03/01/17 07:40 03/01/17 07:40 03/01/17 07:40 03/01/17 07:40 Internal Medicine: Result - Labs CBC & Chem 7: 03/01/17 02:40 03/01/17 02:40 Labs: Short CBC 03/01/17 Range/Units 02:40 WBC 10.0 (4.3-11.1) K/mcL Hgb 11.6 L (12.9-16.9) g/dL Hct 37.3 L (37.5-50.1) % Plt Count 173 (140-400) K/mcL Neutrophils # 7.1 (1.6-8.9) K/mcL [facility] 03/01/17 02:40 Sodium 141 Potassium 3.9 Chloride 107 Carbon Dioxide 25 BUN 30 H Creatinine 1.34 H Glucose 123 H Calcium 9.4 - ABG Interpretation ABG results: PT/INR, D-dimer PT 13.3 Seconds (9.4-12.1) H 02/26/17 13:44 D-Dimer 2121 ng/mLFEU (0-500) H 02/26/17 13:44 - Attending Attestation Patient feels slightly short of breath, fine crackles heard in both bases Mild +1 pitting edema in both lower extremities. Start Lasix 40 mg daily mainly to decrease leg edema I examined this patient and my medical decision-making was reviewed with the Resident Physician. I agree with the documented findings, disposition and treatment plan as described except to the extent set forth below.
[2017-03-01] MEDS: Cyanocobalamin (B-12) 1,000 MCG TABLET PO SCH (09:30)
[2017-03-01] MEDS: *HR* Digoxin 0.125 MG TABLET PO SCH (09:30)
[2017-03-01] MEDS: Multivit/Ca/Min/Fe/FA 1 TAB TABLET PO SCH (09:30)
[2017-03-01] MEDS: Aspirin Enteric Coated 81 MG Tablet PO SCH (09:30)
[2017-03-01] MEDS ORDERED: Furosemide 40 MG TABLET PO SCH (11:00)
--- NOTE | 2017-03-01 13:53 | Cardiology Progress Note ---
Date of Encounter: 03/01/17 Time of Encounter: 12:50 Assessment and Plan (1) Cardiomyopathy Current Visit: Yes Status: Acute EF newly reduced to 20%--NICMP vs ICMP. NICMP suspected secondary to tachycardia induced from his A-Flutter with RVR. However, ischemic cause needs to be ruled out, as he does have hx of CAD ans BMS to CIRC and RCA. [facility] plan for Thursday.[facility] R/B/A discussed with patient and he agrees with plan. Will switch lopressor to toprol XL. Currently not on ACEi/ARB due to JACQUES on admission. On lasix 40 mg p.o. daily. Trace ankle edema noted. Low sodium diet and daily weights. Qualifiers: Cardiomyopathy type: unspecified Qualified Code(s): I42.9 - Cardiomyopathy , unspecified (2) Atrial flutter with rapid ventricular response Current Visit: Yes Status: Acute Presented in new atrial flutter. Unknown timing of onset. Now rate controlled. HR in the 70's. Dig load given 02/27-02/28. Now on oral digoxin. As of note he was difficult to control on metoprolol and cardizem. Lopressor 50mg TID. Plan to switch to long acting Toprol XL after he is rate controlled on lopressor. Will change to toprol XL starting tomorrow. On heparin gtt for anticoagulation since [facility] is anticipated prior to discharge. 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 Determine type--NOAC vs Coumadin after [facility]. Discussed with patient and he is agreeable to anticoagulation. (3) CAD (coronary artery disease) Current Visit: Yes Status: Chronic Hx of PCI. ASA, Statin, BB. Qualifiers: Coronary Disease-Associated Artery/Lesion type: unspecified vessel or lesion type [place] vs. transplanted heart: unspecified whether [place] or transplanted heart Associated angina: angina presence unspecified Qualified Code(s): I25.10 - Atherosclerotic heart disease of [place] coronary artery without angina pectoris Discussion w patient/family: The assessment and plan as outlined above was discussed with the patient and/or family members who expressed understanding and agreement. All questions were answered. Thank you for involving us in the care of your patient. Please call with any questions. Subjective Principal diagnosis: A-Flutter, CMP Interval history: Laying in bed. No complaints. Objective Vital Signs, Last 4 Hours Temp Pulse Resp BP Pulse Ox 03/01/17 11:18 98.1 F 73 14 140/95 96 General: Conversant, No Apparent Distress HEENT: Atraumatic, Normocephaly, Mucus Membranes Moist Neck: No JVD, Normal carotid pulses Cardiac: Other (Irregularly irregular) Lungs: Normal Breath Sounds, No Wheeze, Rales, Rhonchi Neuro: Alert and responsive, No focal deficits noted Abdomen: Soft, Non-Tender Skin: No rashes noted on visualized skin Musculoskeletal: No Chest Wall Tenderness Extremities: No Clubbing, No Cyanosis, Normal Pulses, Other (1+ BLE ankle edema. ) Results 03/01/17 02:40 03/01/17 02:40 Lab Results 02/28/17 03/01/17 03/01/17 17:53 02:40 02:40 WBC 10.0 Hgb 11.6 L Hct 37.3 L Plt Count 173 APTT 62.3 H Sodium 141 Potassium 3.9 Chloride 107 Carbon Dioxide 25 BUN 30 H Creatinine 1.34 H Glucose 123 H Calcium 9.4 - Imaging and Cardiology Stress Test: report reviewed Echo: report reviewed Consult Discharge Plan - Plan Referrals: Karen Richmond, STRATIGRAPHER [Primary Care Provider] -
[2017-03-02 00:50] LABS: Hematocrit 38.4 % (37.5-50.1); Hemoglobin 11.6 g/dL (12.9-16.9); Mean Corpuscular HGB Conc 30.2 g/dL (31.6-35.5); Mean Corpuscular Hemoglobin 27.8 pg (28.0-33.3); Mean Corpuscular Volume 92.1 fL (83.0-100.0); Mean Platelet Volume 9.7 fL (9.4-12.4); Platelet Count 175 K/mcL (140-400); Red Blood Count 4.17 M/mcL (4.19-5.50); Red Cell Distribution Width 16.2 % (11.5-14.5)
[2017-03-02 01:02] LABS: Calcium 9.4 mg/dL (8.6-10.8)
[2017-03-02] MEDS: Heparin 25,000 UNIT/500 ML D5W 25,000 UNIT/500 ML MLS IVC SCH ×2 (04:43→17:48)
[2017-03-02] MEDS ORDERED: Acetaminophen 325 MG TABLET PO PRN (08:22)
[2017-03-02] MEDS ORDERED: *HR* Morphine 2 MG/ML SYRINGE IVP PRN (08:22)
[2017-03-02] MEDS ORDERED: *HR* OxyCODONE/APAP 10/325 TABLET PO PRN (08:23)
--- NOTE | 2017-03-02 08:27 | Internal Med Progress Note ---
Date of Encounter: 03/02/17 Time of Encounter: 08:24 - Assessment and plan (1) Atrial flutter Current Visit: Yes Status: Acute Assessment and plan: Current Visit: Yes Status: Acute Assessment and plan: New diagnosis of A- flutter with RVR Unresponsive to beta alisha outpatient controlled BP 65-76 may be due to cardiomyopathy vs pneumonia vs other infectious etiology/UTI patient is hemodynamically stable troponin 0.05 elevated DDimer 2120 V/Q scan demonstrated low PE probability CXR showed right lower lobe atelectasis, no change from prior chest x-ray -[facility] today according to cardiology once BP under control ( may not proceed with it due to ARF) start IVF, stop lasix -digoxin -metoprolol 50 TID, Lopressor IV PRN -Rocephin day 4 ( mat discontinue, urine sample was ordered and never collected) Qualifiers: Atrial flutter type: typical Qualified Code(s): I48.3 - Typical atrial flutter (2) Acute CHF Current Visit: Yes Status: Acute systolic CHF Assessment and plan: Patient has a history of CHF Significantly reduced EF=20% on 02/26/2017, EF=60% in 2014 BNP 450 CXR showed right lower lobe atelectasis, no change from prior chest x-ray Qualifiers: Congestive heart failure type: unspecified congestive heart failure type Qualified Code(s): I50.9 - Heart failure, unspecified (3) Echocardiogram abnormal Current Visit: Yes Status: Acute Assessment and plan: Patient has a history of CHF Significantly reduced EF=20% on 02/26/2017, EF=60% in 2014 BNP 450 -see plan above (4) CAD (coronary artery disease) Current Visit: Yes Status: Chronic Assessment and plan: History of [place] 3 years ago stents x 3 -Continue home lisinopril, metoprolol, asa Qualifiers: Coronary Disease-Associated Artery/Lesion type: unspecified vessel or lesion type [place] vs. transplanted heart: unspecified whether [place] or transplanted heart Associated angina: angina presence unspecified Qualified Code(s): I25.10 - Atherosclerotic heart disease of [place] coronary artery without angina pectoris (5) Dyspnea Current Visit: Yes Status: Acute Assessment and plan: Patient reports shortness breath is currently on 2 L oxygen 94% sat Qualifiers: Dyspnea type: unspecified Qualified Code(s): R06.00 - Dyspnea, unspecified (6) HTN (hypertension) Current Visit: Yes Status: Chronic Assessment and plan: History of hypertension -continue home medications Qualifiers: Hypertension type: essential hypertension Qualified Code(s): I10 - Essential (primary) hypertension (7) HLD (hyperlipidemia) Current Visit: No Status: Chronic Assessment and plan: History of hyperlipidemia Qualifiers: Hyperlipidemia type: unspecified Qualified Code(s): E78.5 - Hyperlipidemia , unspecified (8) CKD3 Current Visit: Yes Status: Acute Assessment and plan: acute on chronic renal failure start IVF Qualifiers: Atrial flutter type: typical Qualified Code(s): I48.3 - Typical atrial flutter - Subjective Interval history: Complains of severe headache 7 out of 10 in intensity, no fevers or chills, denies any chest pain, no palpitations. Leg edema has come down. No diarrhea - Constitutional Vitals: Temp Pulse Resp BP Pulse Ox 97.9 F 94 15 156/88 96 03/02/17 06:13 03/02/17 06:13 03/02/17 06:13 03/02/17 06:13 03/02/17 06:13 General appearance: Present: cooperative, A&O X 3, no acute distress, answers questions appropriately - Head Head exam: Present: atraumatic, normocephalic - Eye Eye exam: Present: PERRL, conjuntiva pink, sclera anicteric Pupils: Present: PERRL - Neck Neck exam general surgery: Present: supple, trachea midline. Absent: lymphadenopathy - Respiratory Respiratory exam: Present: CTAB. Absent: accessory muscle use, rales, rhonchi, wheezes - Cardiovascular Cardiovascular exam: Present: irregular rhythm, RRR, +S1, +S2, tachycardia. Absent: diastolic murmur, gallop, rubs, systolic murmur - GI/Abdominal GI/Abdominal exam: Present: normal bowel sounds, soft, no peritoneal signs. Absent: distended, tenderness - Extremities Exam Extremities exam: Present: pedal edema (+1 pitting edema in both lower extremities improved), warm, radial pulses palpable and symmetrical. Absent: calf tenderness, cyanotic - Neurological Exam Neurological exam: Present: CN II-XII intact, oriented X3, no focal deficits. Absent: pronater drift, facial droop, speech deficit - Skin Skin exam: Present: dry, intact Internal Medicine: Result - Labs CBC & Chem 7: 03/02/17 00:28 03/02/17 00:28 Labs: Short CBC 03/02/17 Range/Units 00:28 WBC 10.5 (4.3-11.1) K/mcL Hgb 11.6 L (12.9-16.9) g/dL Hct 38.4 (37.5-50.1) % Plt Count 175 (140-400) K/mcL BMP 03/02/17 00:28 Sodium 143 Potassium 4.0 Chloride 105 Carbon Dioxide 29 BUN 28 H Creatinine 1.84 H Glucose 137 H Calcium 9.4 - ABG Interpretation ABG results: PT/INR, D-dimer PT 13.3 Seconds (9.4-12.1) H 02/26/17 13:44 D-Dimer 2121 ng/mLFEU (0-500) H 02/26/17 13:44 Consult Discharge Plan - Plan Referrals: Karen Richmond, SHANK TAPPER [Primary Care Provider] -
[2017-03-02 08:30] LABS: Activated Partial Thrombo Time 118.8 Seconds (26.0-36.0)
[2017-03-02 08:47] LABS: Heparin anti-factor XA UFH 0.6 IU/mL (0.30-0.70)
[2017-03-02] MEDS: *HR* Digoxin 0.125 MG TABLET PO SCH (08:58)
[2017-03-02] MEDS: Metoprolol XL (24 HR) Succ 50 MG TAB.ER.24H PO SCH (08:58)
[2017-03-02] MEDS: Cyanocobalamin (B-12) 1,000 MCG TABLET PO SCH (08:58)
[2017-03-02] MEDS: Multivit/Ca/Min/Fe/FA 1 TAB TABLET PO SCH (08:58)
[2017-03-02] MEDS: Aspirin Enteric Coated 81 MG Tablet PO SCH (08:58)
[2017-03-02] MEDS: 0.9 % Sodium Chloride 1,000 ML IVC SCH (09:55)
--- NOTE | 2017-03-02 14:10 | Cardiology Progress Note ---
Date of Encounter: 03/02/17 Time of Encounter: 09:00 Assessment and Plan (1) Cardiomyopathy Current Visit: Yes Status: Acute Per cardiology: -EF newly reduced to 20%--NICMP vs ICMP. NICMP suspected secondary to tachycardia induced from his A-Flutter with RVR. However, ischemic cause needs to be ruled out, as he does have hx of CAD ans BMS to CIRC and RCA. -On beta alisha -Currently not on ACEi/ARB due to JACQUES on admission. -On lasix 40 mg p.o. daily. Mild ankle edema noted. -Low sodium diet and daily weights. -Due to increase in creatinine today, will hold on LHC today. -Will make NPO after midnight for possible LHC in am. Qualifiers: Cardiomyopathy type: unspecified Qualified Code(s): I42.9 - Cardiomyopathy , unspecified (2) Atrial flutter with rapid ventricular response Current Visit: Yes Status: Acute Per cardiology: -Presented in new atrial flutter. Unknown timing of onset. -Average HR previous 12 hours noted to be 98. -Dig load given 02/27-02/28. Now on oral digoxin. As of note he was difficult to control on metoprolol and cardizem. -On heparin gtt for anticoagulation since LHC is anticipated prior to discharge. 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 Determine type--NOAC vs Coumadin after LHC. Discussed with patient and he is agreeable to anticoagulation. Will decide regarding terminal operator anticoagulation pending LHC. -Discussed and reviewed with , who recommended WILLOW and cardioversion. Discussed at length with patient who in the end decided to wait until tomorrow. Will make NPO after midnight. (3) JACQUES (acute kidney injury) Current Visit: Yes Status: Acute Per cardiology: -Creatinine today 1.84. -Creatinine on admission 1.46. -Baseline creatinine 1-1.3. -Started on IVF per primary service. -Recommend consulting nephrology. (4) CAD (coronary artery disease) Current Visit: Yes Status: Chronic Per cardiology: -Hx of PCI. -ASA, Statin, BB. -Will continue to monitor. Qualifiers: Coronary Disease-Associated Artery/Lesion type: [place] artery [place] vs. transplanted heart: [place] heart Associated angina: without angina Qualified Code(s): I25.10 - Atherosclerotic heart disease of [place] coronary artery without angina pectoris Discussion w patient/family: The assessment and plan as outlined above was discussed with the patient who expressed understanding and agreement. All questions were answered. Thank you for involving us in the care of your patient. Please call with any questions. Discussed and reviewed with . Subjective Principal diagnosis: A-Flutter, CMP Interval history: Patient states he feels well today. Denies complaints. Objective Vital Signs Temperature 99.0 F 02/26/17 13:20 Pulse Rate 144 02/26/17 13:20 Respiratory Rate 18 02/26/17 13:20 Blood Pressure 134/103 02/26/17 13:20 O2 Sat by Pulse Oximetry 94 02/26/17 13:20 Temperature 97.9 F 03/02/17 06:13 Pulse Rate 94 03/02/17 06:13 Respiratory Rate 15 03/02/17 06:13 Blood Pressure 156/88 03/02/17 06:13 O2 Sat by Pulse Oximetry 96 03/02/17 09:09 Oxygen Delivery Oxygen Delivery Nasal Cannula General: Conversant, No Apparent Distress HEENT: Atraumatic, Normocephaly, Mucus Membranes Moist Neck: No JVD, Normal carotid pulses Cardiac: Normal S1 and S2, No Murmur, Other (Irregularly, irregular) Lungs: Normal Breath Sounds, No Wheeze, Rales, Rhonchi Neuro: Alert and responsive, No focal deficits noted Abdomen: Soft, Non-Tender Skin: No rashes noted on visualized skin Musculoskeletal: No Chest Wall Tenderness Extremities: No Clubbing, No Cyanosis, Normal Pulses, Other (Mild bilateral pedal edema noted, non-pitting.) Results 03/02/17 00:28 03/02/17 00:28 Lab Results Active Medications Acetaminophen (Tylenol) 650 mg PO Q6HR PRN PRN Reason: Mild Pain Stop: 09/01/17 08:23 Aspirin (Aspirin Ec) 81 mg PO DAILY [facility]ITY Stop: 08/29/17 09:01 Last Admin: 03/02/17 08:58 Dose: 81 mg Atorvastatin Calcium (Lipitor) 40 mg PO HS [facility] Stop: 08/30/17 21:01 Last Admin: 03/01/17 21:17 Dose: Not Given Cyanocobalamin (Vitamin B12) 1,000 mcg PO DAILY [facility] Stop: 08/29/17 09:01 Last Admin: 03/02/17 08:58 Dose: 1,000 mcg Digoxin (Lanoxin) 0.125 mg PO DAILY [facility] Stop: 08/31/17 09:01 Last Admin: 03/02/17 08:58 Dose: 0.125 mg Heparin Sodium (Porcine) (Heparin) 7,100 unit 70 unit/kg (7100 unit) IVP Q6HR PRN PRN Reason: SEE COMMENTS Stop: 08/28/17 14:11 Heparin Sodium (Porcine) (Heparin) 3,600 unit 35 unit/kg (3600 unit) IVP Q6H PRN PRN Reason: SEE COMMENTS Stop: 08/28/17 14:11 Heparin Sodium/Dextrose (Heparin 25,000 Unit/500 Ml D5w) 25,000 unit in 500 mls @ 28.449 mls/hr IVC .[id number] CHARITY; 14 UNIT/KG/HR PRN Reason: Protocol Stop: 08/28/17 14:16 Last Titration: 03/02/17 09:49 Dose: 7.13 unit/kg/hr, 14.5 mls/hr Ceftriaxone Sodium 1,000 mg/ (Dextrose) 100 mls @ 200 mls/hr IVPB Q24H [facility] Stop: 08/29/17 14:01 Last Admin: 03/01/17 13:57 Dose: 200 mls/hr Sodium Chloride (0.9 % Sodium Chloride) 1,000 mls @ 60 mls/hr IVC .[id number] [facility] Stop: 09/01/17 09:16 Last Admin: 03/02/17 09:55 Dose: 60 mls/hr Metoprolol Succinate (Toprol Xl) 100 mg PO DAILY [facility] Stop: 09/01/17 09:01 Last Admin: 03/02/17 08:58 Dose: 100 mg Morphine Sulfate (Morphine Sulfate) 4 mg IVP Q3H PRN PRN Reason: severe pain Stop: 09/01/17 08:23 Multivitamins/Calcium (Thera M Plus) 1 tab PO DAILY [facility] Stop: 08/29/17 09:01 Last Admin: 03/02/17 08:58 Dose: 1 tab Naloxone HCl (Narcan) 0.4 mg IVP Q2MIN PRN PRN Reason: Opioid Reversal Stop: 04/20/18 17:18 Omeprazole (Prilosec) 20 mg PO DAILY [facility] Stop: 08/29/17 09:01 Last Admin: 03/02/17 08:58 Dose: 20 mg Oxycodone/Acetaminophen (Percocet 10) 1 each PO Q6H PRN PRN Reason: Moderate Pain Stop: 08/28/17 17:16 Last Admin: 03/02/17 08:59 Dose: 1 each Laboratory Tests 03/02/17 03/02/17 00:28 00:28 Hgb 11.6 L Creatinine 1.84 H - Imaging and Cardiology Chest Xray: report reviewed Echo: report reviewed Cardiac cath: pending - EKG Interpretation EKG results cardiology: other (Telemetry reviewed with average HR previous 12 hours noted to be 98, atrial flutter. PVCs, couplets, and 2 runs of non- sustained ventricular tachycardia, longest lasting 8 beats) Consult Discharge Plan - Plan Referrals: Karen Richmond CNP [Primary Care Provider] - 03/09/17 10:00 am
[2017-03-03 00:48] LABS: Hematocrit 37.9 % (37.5-50.1); Hemoglobin 11.6 g/dL (12.9-16.9); Mean Corpuscular HGB Conc 30.6 g/dL (31.6-35.5); Mean Corpuscular Hemoglobin 27.8 pg (28.0-33.3); Mean Corpuscular Volume 90.9 fL (83.0-100.0); Mean Platelet Volume 9.4 fL (9.4-12.4); Platelet Count 152 K/mcL (140-400); Red Blood Count 4.17 M/mcL (4.19-5.50); Red Cell Distribution Width 16.5 % (11.5-14.5)
[2017-03-03 00:59] LABS: Calcium 9.1 mg/dL (8.6-10.8)
[2017-03-03 01:11] LABS: Activated Partial Thrombo Time 111.6 Seconds (26.0-36.0)
[2017-03-03 01:16] LABS: Heparin anti-factor XA UFH 0.55 IU/mL (0.30-0.70)
[2017-03-03] MEDS: 0.9 % Sodium Chloride 1,000 ML IVC SCH (02:10)
[2017-03-03] MEDS: Aspirin Enteric Coated 81 MG Tablet PO SCH (09:41)
[2017-03-03] MEDS: Cyanocobalamin (B-12) 1,000 MCG TABLET PO SCH (09:41)
[2017-03-03] MEDS: Multivit/Ca/Min/Fe/FA 1 TAB TABLET PO SCH (09:41)
[2017-03-03] MEDS: Metoprolol XL (24 HR) Succ 50 MG TAB.ER.24H PO SCH (09:41)
[2017-03-03] MEDS: *HR* Digoxin 0.125 MG TABLET PO SCH (09:41)
--- NOTE | 2017-03-03 09:44 | Nephrology Consult Note ---
Date of Encounter: 03/03/17 Time of Encounter: 09:41 Assessment and Plan (1) JACQUES (acute kidney injury) Current Visit: Yes Status: Acute Kidney function improving-Scr 1.41 and GFR 49 Ok to proceed with heart cath from kidney standpoint Will give Mucomyst BID x 2 days-verbal order given to nurse Agree with gentle IV fluids before cath and 6 hours after cath Will proceed with the JACQUES workup to include: UA, urine culture, urine sodium, urine creatinine, urine eosinophils, CPK, serum uric acid, urine albumin to creatinine ratio, and renal ultrasound (2) Atrial flutter with rapid ventricular response Current Visit: Yes Status: Acute per cardiology team (3) Cardiomyopathy Current Visit: Yes Status: Acute per cardiology team Qualifiers: Cardiomyopathy type: unspecified Qualified Code(s): I42.9 - Cardiomyopathy , unspecified (4) CAD (coronary artery disease) Current Visit: Yes Status: Chronic per cardiology team Qualifiers: Coronary Disease-Associated Artery/Lesion type: [place] artery [place] vs. transplanted heart: [place] heart Associated angina: without angina Qualified Code(s): I25.10 - Atherosclerotic heart disease of [place] coronary artery without angina pectoris History of Present Illness - Reason for Consult Consult date: 03/03/17 Acute Kidney Injury - Chief Complaint acute CHF, atrial flutter, JACQUES - History of Present Illness Mr. Pillai is a 77 year old male with a PMH of arthritis, CAD, HLD, HTN, ID with stents 3 and knee arthroscopy. While undergoing echocardiogram he was noted to have a decrease in ejection fraction and acute heart failure. Prior EF was 60% from 2015 now down to 20%. The patient reports a greater than 2 week history of shortness of breath. CT was found to be in atrial flutter with rapid ventricular response. Cardiology wants to do a heart cath but patient has developed an JACQUES. Patient denies any history of chronic kidney disease and review of his old labs show normal kidney function as of September 2016. Past Med Surg Social Fam HX - Past Medical History Medical history: arthritis, coronary artery disease, hyperlipidemia, hypertension Psychiatric history: no psych history - Past Surgical History Surgical History: knee replacement - Social History Smoking Status: Never smoker Smokeless Tobacco Status: No Alcohol use: none Drug use: none - Family History Father Living Status: Mother Living Status: Age at : 71 Cause of : ID Hx Family Cardiac Disorders: Yes Hx Family Respiratory Disorders: Yes Hx Family Endocrine Disorder: Yes Hx Family Medical Disorders: Yes Medications and Allergies RX: Ascorbic Acid [Vitamin C] 600 mg PO DAILY 09/01/16 [History] RX: Aspirin [Lo-Dose Aspirin EC] 81 mg PO DAILY 09/01/16 [History] RX: Cyanocobalamin (Vitamin B-12) [Vitamin B-12] 1,000 mcg SL DAILY 09/01/16 [ History] RX: Ibuprofen [Motrin] 600 mg PO Q8HR PRN 09/01/16 [History] RX: Lisinopril [Zestril] 20 mg PO DAILY 09/01/16 [History] RX: Multivitamin [One Daily Essential] 1 each PO DAILY 09/01/16 [History] RX: Omeprazole 20 mg PO DAILY 09/01/16 [History] Metoprolol XL (24 HR) Succ [Toprol XL] 25 mg PO DAILY 02/26/17 [History] Oxycodone HCl/Acetaminophen [Percocet 10-325 mg Tablet] 1 tab PO Q6H PRN [History] 3 Allergy/AdvReac Type Severity Reaction Status Date / Time No Known Allergies Allergy Verified 02/09/17 09:54 Review of Systems All Systems: reviewed and no additional remarkable complaints except as stated Constitutional: fatigue, malaise Cardiovascular: dyspnea, dyspnea on exertion, leg edema Respiratory: dyspnea, dyspnea on exertion Gastrointestinal: no nausea, no vomiting Psychiatric: no behavioral changes Exam - Vital Signs Vital signs: Initial Vital Signs Temp Pulse Resp BP Pulse Ox 99.0 F 144 18 134/103 94 02/26/17 13:20 02/26/17 13:20 02/26/17 13:20 02/26/17 13:20 02/26/17 13:20 Vital Signs - Last 8 Hours Temp Pulse Resp BP Pulse Ox 03/03/17 07:00 98.1 F 96 18 121/89 97 03/03/17 04:45 97.6 F 102 20 121/85 88 Intake and Output 03/02/17 03/03/17 03/03/17 23:59 07:59 15:59 Intake Total 411 / 411 1280 / 1280 Output Total 200 / 200 500 / 500 Balance 211 / 211 780 / 780 Intake: IV Fluids 171 / 171 1280 / 1280 0.9 % Sodium Chloride 1,000 ML 1000 / 1000 @ 60 mls/hr IVC .[id number] [facility] Rx #:[id number] Heparin 25,000 UNIT/500 ML D5W 171 / 171 280 / 280 25,000 unit In 500 ml @ 14 UNIT /KG/HR 28.449 mls/hr IVC . [id number] [facility] Rx#:[id number] Oral 240 / 240 0 / 0 Output: Urine 200 / 200 500 / 500 Other: # Voids 0 Weight 98.1 kg Patient Weight 03/03/17 23:59 Weight 98.1 kg - General Appearance General appearance: well-developed, well-nourished, obese EENT: ATNC, mucous membranes moist, hearing intact, vision intact Neck: supple Respiratory: clear Cardiology: edema (mild BLL edema), normal S1, normal S2 Gastrointestinal: no tenderness, no guarding, obese Integumentary: warm and dry Neurologic: alert and oriented x3 Psychiatric: mood/affect appropriate, cooperative Results - Lab Results 03/03/17 00:28 03/03/17 00:28 Most recent lab results Calcium 9.1 mg/dL (8.6-10.8) 03/03/17 00:28 Consult Discharge Plan - Plan Referrals: Karen Richmond CNP [Primary Care Provider] - 03/09/17 10:00 am
--- NOTE | 2017-03-03 10:47 | Internal Med Progress Note ---
<Chilango Henderson - Last Filed: 03/03/17 16:01> Date of Encounter: 03/03/17 Time of Encounter: 10:45 - Assessment and plan (1) Acute CHF Current Visit: Yes Status: Acute Assessment and plan: LVEF 20% on 02/26/17 - previously 60% in 2014. Etiology ischemic vs nonischemic Lungs clear, mild LE edema (L > R, but chronic swelling related to knee replacement) Plan: Cardiology following - plan for [facility] today, on digoxin Continue BB Hold ACEI and Lasix - JACQUES on admission Qualifiers: Congestive heart failure type: unspecified congestive heart failure type Qualified Code(s): I50.9 - Heart failure, unspecified (2) Atrial flutter Current Visit: Yes Status: Acute Assessment and plan: Unresponsive to beta alisha outpatient. Rate controlled 60s-100s May be due to cardiomyopathy vs pneumonia vs other infectious etiology/UTI Hemodynamically stable. Troponin 0.05. Elevated DDimer 2121. V/Q scan demonstrated low PE probability CXR showed right lower lobe atelectasis, no change from prior chest x-ray Plan: Cardiology following - [facility] today, continue digoxin, BB Possible WILLOW and cardioversion Qualifiers: Atrial flutter type: typical Qualified Code(s): I48.3 - Typical atrial flutter (3) JACQUES (acute kidney injury) Current Visit: Yes Status: Acute Assessment and plan: Improving - Cr 1.41 today, GFR 59 Nephro following - Mucomyst, IV fluids, and JACQUES work-up (4) CAD (coronary artery disease) Current Visit: Yes Status: Chronic Assessment and plan: History of NC 3 years ago stents x 3 Plan: Continue home metoprolol, asa - Hold lisinopril due to JACQUES Qualifiers: Coronary Disease-Associated Artery/Lesion type: [place] artery [place] vs. transplanted heart: [place] heart Associated angina: without angina Qualified Code(s): I25.10 - Atherosclerotic heart disease of [place] coronary artery without angina pectoris (5) HTN (hypertension) Current Visit: Yes Status: Chronic Assessment and plan: Continue home medications Qualifiers: Hypertension type: essential hypertension Qualified Code(s): I10 - Essential (primary) hypertension (6) HLD (hyperlipidemia) Current Visit: No Status: Chronic Assessment and plan: Continue statin Qualifiers: Hyperlipidemia type: unspecified Qualified Code(s): E78.5 - Hyperlipidemia , unspecified - Subjective Interval history: Pt doing well with no specific complaints. Awaiting [facility]. Still reporting some dyspnea and mild LE edema. Denies chest pain, N/V/D/C, or dysuria - Constitutional Vitals: Temp Pulse Resp BP Pulse Ox 98.1 F 96 18 121/89 94 03/03/17 07:00 03/03/17 07:00 03/03/17 07:00 03/03/17 07:00 03/03/17 09:54 General appearance: Present: cooperative, A&O X 3, no acute distress, answers questions appropriately - Head Head exam: Present: atraumatic, normocephalic - Eye Eye exam: Present: conjuntiva pink, sclera anicteric - ENT ENT exam: Present: mucous membranes moist - Neck Neck exam general surgery: Present: supple, trachea midline - Respiratory Respiratory exam: Present: CTAB. Absent: accessory muscle use, rales, rhonchi, wheezes - Cardiovascular Cardiovascular exam: Present: irregular rhythm, +S1, +S2. Absent: diastolic murmur, systolic murmur - GI/Abdominal GI/Abdominal exam: Present: normal bowel sounds, soft, no peritoneal signs. Absent: distended, tenderness - Extremities Exam Extremities exam: Present: pedal edema (mild edema (L > R)), warm, radial pulses palpable and symmetrical. Absent: calf tenderness, cyanotic - Neurological Exam Neurological exam: Present: CN II-XII intact, oriented X3, no focal deficits - Skin Skin exam: Present: dry, intact Internal Medicine: Result - Labs CBC & Chem 7: 03/03/17 00:28 03/03/17 00:28 Labs: Short CBC 03/03/17 Range/Units 00:28 WBC 9.9 (4.3-11.1) K/mcL Hgb 11.6 L (12.9-16.9) g/dL Hct 37.9 (37.5-50.1) % Plt Count 152 (140-400) K/mcL BMP 03/03/17 00:28 Sodium 144 Potassium 4.0 Chloride 105 Carbon Dioxide 30 H BUN 23 Creatinine 1.41 H Glucose 99 Calcium 9.1 - ABG Interpretation ABG results: PT/INR, D-dimer PT 13.3 Seconds (9.4-12.1) H 02/26/17 13:44 D-Dimer 2121 ng/mLFEU (0-500) H 02/26/17 13:44 Consult Discharge Plan - Plan Referrals: Karen Richmond CNP [Primary Care Provider] - 03/09/17 10:00 am <Real Flores - Last Filed: 03/03/17 16:55> Date of Encounter: 03/03/17 - Constitutional Vitals: Temp Pulse Resp BP Pulse Ox 97.7 F 76 16 157/97 96 03/03/17 15:07 03/03/17 16:07 03/03/17 16:07 03/03/17 16:07 03/03/17 16:07 Internal Medicine: Result - Labs CBC & Chem 7: 03/03/17 00:28 03/03/17 00:28 Labs: Short CBC 03/03/17 Range/Units 00:28 WBC 9.9 (4.3-11.1) K/mcL Hgb 11.6 L (12.9-16.9) g/dL Hct 37.9 (37.5-50.1) % Plt Count 152 (140-400) K/mcL BMP 03/03/17 00:28 Sodium 144 Potassium 4.0 Chloride 105 Carbon Dioxide 30 H BUN 23 Creatinine 1.41 H Glucose 99 Calcium 9.1 - ABG Interpretation ABG results: ABG ABG pH 7.32 pH Units (7.32-7.45) 03/03/17 16:24 ABG pCO2 68 mmHg (35-45) H 03/03/17 16:24 ABG pO2 110 mmHg (85-104) H D 03/03/17 16:24 ABG O2 Saturation 98 % (95-98) 03/03/17 16:24 PT/INR, D-dimer PT 13.3 Seconds (9.4-12.1) H 02/26/17 13:44 D-Dimer 2121 ng/mLFEU (0-500) H 02/26/17 13:44 - Impressions Impressions Chest X-Ray 03/03/17 15:38 IMPRESSION: No acute process. D/ / John Salazar MD / John Salazar MD Interpreting Provider: John Salazar MD - Attending Attestation I examined this patient and my medical decision-making was reviewed with the Resident Physician. I agree with the documented findings, disposition and treatment plan as described except to the extent set forth below. underwent cardiac cath. noted patient has been shifted to ICU will follow recommendations from cardiology.
--- NOTE | 2017-03-03 11:26 | Event Note ---
Date of Encounter: 03/03/17 Time of Encounter: 11:23 - Cardiology Event Note Plan for LHC today. Creatinine 1.41 today, down from 1.89 yesteday. Patient was seen by nephrology who states ok for LHC today. Risks versus benefits of LHC explained to patient. Patient states understanding and agreeable to proceed. Of note, patient's code status is listed as DNR-CCA/DNI. Discusssed with patient, patient agreeable to make himself a full code for LHC and for 24 hours after. Will make NPO after midnight for possible WILLOW/Cardioversion tomorrow. Further recommendations pending LHC. Patient's labs and code status discussed and reviewed with and Dr.Jennifer Harris.
[2017-03-03 11:35] LABS: Uric Acid 7.7 mg/dL (3.5-7.2)
[2017-03-03] MEDS: *HR* Acetylcysteine 20% 600 MG/3 ML ORAL SYRINGE PO SCH ×2 (11:45→20:48)
[2017-03-03] MEDS ORDERED: Heparin 1,000 UNITS/500 mL NS 500 ML ONE (12:34)
[2017-03-03] MEDS ORDERED: 0.9 % Sodium Chloride 1,000 ML ONE ×2 (12:34→13:01)
[2017-03-03] MEDS ORDERED: *HR* Heparin 10,000 UNIT/10 ML VIAL ONE (12:34)
[2017-03-03] MEDS ORDERED: Nitroglycerin 1,000 MCG/10 ML VIAL IV ONE (12:34)
[2017-03-03] MEDS ORDERED: *HR* FentaNYL (PF) 100 MCG/2 ML VIAL ONE (13:20)
[2017-03-03] MEDS ORDERED: *HR* Midazolam HCl 2 MG/2 ML VIAL ONE (13:20)
--- NOTE | 2017-03-03 13:23 | Pre-Sedation Evaluation ---
Pre-sedation evaluation - Pre-sedation checklist Date of procedure: 03/03/17 Procedure: [facility] Recent Vitals: Last Vital Signs Temp 98.1 F 03/03/17 07:00 Pulse 96 03/03/17 07:00 Resp 18 03/03/17 07:00 BP 121/89 03/03/17 07:00 Pulse Ox 94 03/03/17 09:54 H&P (including ROS) documented in medical record: Yes Previous reaction to sedatives/anesthetics: No Dietary Status: NPO after Midnight Airway Assessment: Patient can open mouth completely, TMJ function normal, Micrognathia (under-bite, receding chin) absent, Neck with adequate range of motion Dentition: full dentition Possible difficult airway: No ASA Classification *see protocol: CLASS II-Mild systemic disease Plan of Care: Pt appropriate candidate for procedure/moderate/conscious sedation , Risks/benefits of procedure/sedation discussed w/ patient/family
[2017-03-03] MEDS ORDERED: *HR* Bivalirudin 250 MG VIAL IVC ONE (13:47)
[2017-03-03] MEDS ORDERED: Furosemide 40 MG/4 ML VIAL ONE (13:57)
[2017-03-03] MEDS ORDERED: Nitroglycerin 25 MG/250 ML INFUS..BTL IVC ONE (13:57)
[2017-03-03 14:12] LABS: ABG Base Excess 3 mEq/L (-2 to 3); ABG HCO3 33 mEq/L (21-27); ABG Oxygen Saturation 100 % (95-98); ABG PCO2 77 mmHg (35-45); ABG PH 7.24 pH Units (7.32-7.45); ABG PO2 228 mmHg (85-104); ABG TCO2 36 mEq/L (20-26)
--- NOTE | 2017-03-03 14:43 | Invasive Diagnostic Lab Proc ---
Name: Randal Pillai Date of Study: 03/03/2017 Date: 1940 Ht: 70.1in Medical Record#: [id number] Age: 77 Wt: 216.05lb Gender: Male BSA: 2.16 Order #: [id number] BMI: 30.93 Physicians Procedure Physician: Amy Harris MD, [facility] Referring MD: Referring MD: Staff Name Position Time In PatrickJagjit kiran RN Monitor 01:10 PM Sandra Swartz RN Engine Test Cell Technician 01:10 PM Celi Mendez RN Engine Test Cell Technician 01:10 PM Debra Aguayo RN Monitor 01:10 PM Aminta Molina RT Scrub 01:11 PM Indications Indication Non-Stemi Cardiomyopathy Procedures Performed Procedure L HRT ARTERY/VENTRICLE ANGIO Pre-Procedure Checklist Informed consent is complete signed and on chart. H&P is on chart. ID band is on and ID verified with patient. Patient NPO for procedure The procedure was described for the patient and questions were answered. Blood Pressure: 156/88 ECG is on chart. Rhythm: Atrial Fib/Flutter Plan of Care Patient will tolerate the procedure without complications. Adequate level of comfort will be maintained. Hemodynamics will remain stable Patient will recover from procedure without complications. Respiratory function will be maintained. Cardiac rhythm will remain stable. Patient temperature will be maintained. Patient and/or family have verbalized understanding of the procedure. Patient Education Chief Complaint/Reason for Test: Cardiac Cath Developmental Category: Geriatric (65+ years) Developmentally Appropriate for Age: Yes Learning Barriers: None Education Needs: Procedure Education Method: Verbal Information Taught: Cardiac Cath Educational Evaluation: Able to repeat information Intravenous Access Time IV Size Location DC'd Fluid/Drip Rate Units RN 01:00 PM 18g 1 05/14" Patent On Arrival Rt Hand Sandra Swartz RN Allergies No Known Allergies - Nka No Known Allergies Vital Signs Time BP (mmHg) HR (bpm) O2 Sat. RR (bpm) LOC 01:19 PM / % 5 = Fully awake and oriented or at pre-proc level 01:19 PM / % 4 = Oriented but drowsy 01:34 PM / % 4 = Oriented but drowsy 01:49 PM / % 2 = Responds to voice 01:21 PM 101 / 72 92 93 % 01:27 PM 157 / 118 93 96 % 21 01:31 PM 165 / 94 112 97 % 23 01:36 PM 152 / 102 108 96 % 22 01:41 PM 154 / 118 105 94 % 22 01:46 PM 142 / 112 91 95 % 37 01:51 PM 135 / 98 134 92 % 26 01:57 PM 144 / 100 106 95 % 16 02:01 PM 126 / 81 95 95 % 20 02:06 PM 139 / 89 107 95 % 20 Procedural Medications Time Medication Dose Units Method Given By 01:22 PM Oxygen 6 L/min Oxy Mask Sandra Swartz RN 01:26 PM Versed 2 mg Intravenous Sandra Swartz RN 01:26 PM Fentanyl 50 mcg Intravenous Sandra Swartz RN 01:31 PM Lidocaine 2% 15 ml Subcutaneous Amy Harris MD, [facility] 01:50 PM Angiomax 0.75mg/kg bolus: 15 ml Intravenous Sandra Swartz RN 01:50 PM Angiomax 1.75mg/kg/hr: 35 ml/hr Intravenous Sandra Swartz RN 01:53 PM Oxygen 15 L/min 100% non rebreather mask Sandra Swartz RN 01:58 PM Lasix 40 mg Intravenous Sandra Swartz RN 02:01 PM Nitroglycerin 10 mcg/min Iv Sandra Swartz RN ASA Classification: CLASS II- Mild systemic disease (i.e. well-controlled diabetes, hypertension, asthma, cigarette smoking) Kita Score Preprocedure Postprocedure Activity 2- Moves 4 extremities sustained head lift Activity 2- Moves 4 extremities sustained head lift Circulation 2- SBP +/= 20 points of pre-anesthetic level Circulation 2- SBP +/= 20 points of pre-anesthetic level Consciousness 2- Awake and alert oriented x 3 Consciousness 2- Awake and alert oriented x 3 O2 Saturation 2- Able to maintain O2 satruation of 92% on room air O2 Saturation 2- Able to maintain O2 satruation of 92% on room air Respiratory 2- Able to deep breathe and cough well Respiratory 2- Able to deep breathe and cough well Total Score 10 Total Score 10 Contrast Agent: Isovue Diagnostic Contrast: 112 ml Total Contrast: 112 ml Fluoro Dose: 313 mGy Procedure Log Time Note Enter By 01:10 PM Pt arrived to cardiac cath lab radiology technologist 2 at 13:10 carla 01:10 PM CathStat 01:10 PM Patrick, Jagjit RN Position: Monitor Time in: 13:10 [email or web address] 01:10 PM Sandra Swartz RN Position: Engine Test Cell Technician Time in: 13:10 [email or web address] 01:10 PM Celi Mendez RN Position: Engine Test Cell Technician Time in: 13:10 [email or web address] 01:11 PM Debra Aguayo RN Position: Monitor Time in: 13:10 [email or web address] 01:11 PM Aminta Molina RT Position: Scrub Time in: 13:11 [email or web address] 01:11 PM Patient charges- Angio tray pack, Navilyst 3mm J, Pulse Oximetry and ACIST tubing and transducer jcallihan 01:11 PM Physican paged/called 13:11. [email or web address] 01:15 PM Physican responded and notified patient is ready 13:15 jcallihan 01:15 PM Physician arrived 13:15 jcallihan :15 PM [facility] and greet [facility] PM Sign in performed according to hospital policy. [email or web address] 01:17 PM Procedure start 13:17 jcallihan :18 PM Case Delayed no, inpatient jcallihan :18 PM Hair removed from procedure site in holding area using clippers. Bilateral groin prepped with Chloraprep by Aminta Molina, then patient was draped. Skin intact. an :19 PM Time: 13:19 Patient comfortable and pain free: Yes jcallan :19 PM Time: :19LOC: 5 = Fully awake and oriented or at pre-proc level jcallihan :20 PM Vitals capture started with the following parameters, Patient=Adult, Interval=5 min, Initial Opiyuwkh=115 mmHg, Deflation Rate=5 mmHg, Cuff placed on Right Arm 01: PM HR=92 bpm, BFGB=766/72 mmhg, SpO2=93.0 %, Comment=afib : PM Time: : Oxygen on at 6 L/min per Oxy Mask by [facility] RN [facility] : PM Recorded ECG: NB=819 Condition=Condition 1 01: PM Time: 13: Versed 2 mg Intravenous Given by Sandra Swartz RN ginna : PM Time: : Fentanyl 50 mcg Intravenous Given by [facility]z RN [email or web address] 01:27 PM HR=93 bpm, LWOD=043/118 mmhg, SpO2=96.0 %, Resp=21 B/min, Comment=afib 01:27 PM ASA Class CLASS II- Mild systemic disease (i.e. well-controlled diabetes, hypertension, asthma, cigarette smoking) [email or web address] 01:31 PM Clinical Presentation: Non-STEMI jcallihan 01:31 PM Time out performed according to hospital policy jcallihan 01:31 PM NW=368 bpm, KRMQ=104/94 mmhg, SpO2=97.0 %, Resp=23 B/min, Comment=afib 01:32 PM Time: 13:31 15 ml Lidocaine 2% to right groin Subcutaneous Given by Amy Harris MD, [facility] jcallihan :32 PM Access obtained by percutaneous puncture. 5Fr 10cm Terumo [place] sheath placed in right Femoral artery. [id number] jcallihan 01:33 PM 5Fr FL 4 catheter inserted over the wire [facility] jcallihan :34 PM Time: 13:19 Patient comfortable and pain free: Yes jcallihan :34 PM Time: 13:19LOC: 4 = Oriented but drowsy jcallihan :34 PM LCA angiography performed in multiple views. [email or web address] 01:34 PM Recorded Pressure: Ao, HR=80, Condition=Condition 1 (Aorta) Ao 108/68/87 01:36 PM Catheter removed jcallihan 01:36 PM 5Fr FR 4 catheter inserted over the wire DN jcallihan 01:36 PM AU=728 bpm, PIDC=315/102 mmhg, SpO2=96.0 %, Resp=22 B/min, Comment=afib 01:37 PM RCA angiography performed in multiple views. [email or web address] 01:37 PM Recorded Pressure: Ao, HR=89, Condition=Condition 1 (Aorta) Ao 109/66/89 01:38 PM Catheter removed jcallihan 01:38 PM Coronary Dominance: right jcallihan 01:38 PM 5Fr Pigtail catheter inserted over the wire DN jcallihan 01:38 PM Pressure channel 1 zero failed. 01:39 PM Pressure channel 1 zeroed. 01:39 PM Catheter selectively placed in left ventricle jcallihan 01:39 PM Recorded Pressure: LV, RF=617, Condition=Condition 1 (Left Ventricle) LV 116/42/53 01:39 PM Recorded Pressure: LV, Ao, PK=538, Condition=Condition 1 (Left Ventricle) LV 118/56/61, (Aorta) Ao 122/84/103 01:40 PM Bolus angiogram of left Ventricle complete: 8 ml/sec for a total of 24 mls jcallihan 01:40 PM Recorded Pressure: Ao, DQ=719, Condition=Condition 1 (Aorta) Ao 151/95/117 01:41 PM Catheter removed jcallihan 01:41 PM KU=330 bpm, RWBO=402/118 mmhg, SpO2=94.0 %, Resp=22 B/min, Comment=afib 01:43 PM Recorded Pressure: Ao, HR=90, Condition=Condition 1 (Aorta) Ao 144/76/108 01:46 PM HR=91 bpm, XQWU=814/112 mmhg, SpO2=95.0 %, Resp=37 B/min, Comment=afib 01:46 PM PCI Status Urgent jcallihan 01:47 PM PCI Indication: PCI for high risk Non-STEMI or unstable angina jcallihan 01:47 PM Inflation device was opened. jcallihan 01:47 PM Sheath exchanged for a 6 Fr 11 cm TerumYour [employer] [place] sheath [id number] jcallihan 01:47 PM Lesion found in 1st Diagonal. Pre Stenosis: 95 Pre ADOLFO Flow: jcallihan 01:47 PM .014 Prowater 180cm guide wire across target lesion- successful. reused? No jcallihan 01:47 PM Mid/Distal Left Anterior Descending Coronary Artery and diagonal branches with 95% stenosis. If graft is supplying this area, 0 % stenosis jcallihan 01:48 PM 6Fr XB LAD 3.5 Cordis guide catheter was used to cannulate the PCI vessel successfully. reused? No jcallihan 01:49 PM Time: 13:34LOC: 4 = Oriented but drowsy jcallihan 01:49 PM Time: 13:34 Patient comfortable and pain free: Yes [email or web address] 01:50 PM Time: 13:50 Angiomax 0.75mg/kg bolus: 15 ml Intravenous Given by Sandra Swartz RN Peña pump jcallihan 01:51 PM Time: 13:50 Angiomax 1.75mg/kg/hr: 35 ml/hr Intravenous Given by Sandra Swartz RN Peña pump jcallihan 01:51 PM SR=429 bpm, PWCF=516/98 mmhg, SpO2=92.0 %, Resp=26 B/min, Comment=afib 01:53 PM Time: 13:53 Oxygen on at 15 L/min per 100% non rebreather mask by Sandra Swartz RN [email or web address] 01:53 PM Oral Airway placed. [email or web address] 01:57 PM HJ=458 bpm, HRHP=582/100 mmhg, SpO2=95.0 %, Resp=16 B/min, Comment=afib 01:57 PM Bolus angiogram of right Femoral complete: 4 ml/sec for a total of 7 mls jcallihan 01:58 PM Guide catheter removed intact. jcallihan 01:58 PM Guide wire removed intact. jcallihan 01:58 PM Angiomax turned off. [email or web address] 01:59 PM Time: 13:58 Lasix 40 mg Intravenous Given by Sandra Swartz RN jcallihan 01:59 PM Intervention stopped due to pt respiratory status. [email or web address] 01:59 PM Obtaining pt ABG. jcallihan 02:00 PM Procedure completed at 14:00 jcallihan 02:01 PM HR=95 bpm, XCBW=432/81 mmhg, SpO2=95.0 %, Resp=20 B/min, Comment=afib 02:02 PM Time: 14:01 Nitroglycerin 10 mcg/min Iv Given by Sandra Swartz RN Peña pump jcallihan 02:04 PM Sign out completed: Radiation Dose 313 mGy Fluoro Time: 3.5 Isovue 370 - 200ml contrast 112 ml given by Amy Harris MD, [facility]. Complications: NoneCardiac Rehab Consult needed: NoConfirmed administered medications: Yes [email or web address] 02:04 PM Time: 13:49 Patient comfortable and pain free: Yes jcallihan 02:04 PM Time: 13:49LOC: 2 = Responds to voice jcallihan 02:05 PM Arterial sheath pulled, Mynx closure device used and was Successful [id number] S/N. jcallihan 02:05 PM Post ECG Atrial Fib/Flutter jcallihan 02:05 PM Post Blood Pressure 126/81 jcallihan 02:06 PM DD=624 bpm, EWGJ=378/89 mmhg, SpO2=95.0 %, Resp=20 B/min, Comment=afib 02:06 PM Information taught Cardiac Cath and Mynx jcallihan 02:07 PM Education needs Plan of Care, Procedure, and Responsibilities of Patient in Care jcallihan 02:07 PM Learning barriers :None jcallihan 02:07 PM Education Methods Verbal jcallihan 02:07 PM Education evaluation Able to repeat information jcallihan 02:07 PM Site status No bleeding/hematoma - Rt Groin as reported by Aminta Molina RT at 14:07 jcallihan 02:07 PM Opsite applied jcallihan 02:09 PM Family placed in consult room. jcallihan 02:10 PM Plavix, Effient or Brilinta given No jcallihan 02:10 PM Delay to floor No jcallihan 02:10 PM Complications: None jcallihan 02:10 PM Fluoro Time: 3.5 jcallihan 02:10 PM Isovue 370 - 200ml contrast 112 ml given by Amy Harris MD, [facility]. jcallihan 02:10 PM Radiation Dose 313 mGy jcallihan 02:12 PM Vitals capture stopped. 02:16 PM 14:16 Post Pulses Bilateral DP & PT 1+ jcallihan 02:19 PM Time: 14:04 Patient comfortable and pain free: Yes jcallihan 02:25 PM Report given to Elvi LEMUS Pt taken to ICU Room #8. 14:25 jcallihan 02:26 PM Osborne placed using sterile procedure by Debra Aguayo RN. jcallihan 02:27 PM Lesion found in LMCA. Pre Stenosis: 20 Pre ADOLFO Flow: [email or web address] 02:27 PM Lesion found in Proximal LAD. Pre Stenosis: 25 Pre ADOLFO Flow: [email or web address] 02:27 PM Lesion found in Proximal RCA. Pre Stenosis: 40 Pre ADOLFO Flow: jcallihan 02:27 PM Lesion found in Mid RCA. Pre Stenosis: 30 Pre ADOLFO Flow: jcallihan 02:27 PM Lesion found in Distal RCA. Pre Stenosis: 40 Pre ADOLFO Flow: jcallihan 02:28 PM Lesion found in Mid Circumflex. Pre Stenosis: 40 Pre ADOLFO Flow: jcallihan 02:28 PM Left Main Coronary Artery with 20% stenosis jcallihan 02:28 PM Proximal Left Anterior Descending Coronary Artery with 25% stenosis. If graft is supplying this territory, 0 % stenosis. jcallihan 02:29 PM Circumflex, Obtuse Marginal, Left Posterior Descending, and Left Posterolateral Coronary Arteries with 40 % stenosis. If graft is supplying this area, 0 % stenosis jcallihan 02:29 PM Right Coronary, Right Posterior Descending Arteries with Right Posterolateral and Acute Marginal branches with 40 % stenosis. If graft is supplying this area, 0 % stenosis jcallihan 02:29 PM Patient out of room: 14:29 jcallihan Complications Complication None None Hemodynamics Pressures Site Systolic/A Wave Diastolic/V Wave Mean AO 108 68 87 AO 109 66 89 LV 116 42 53 LV 118 56 61 AO 122 84 103 AO 151 95 117 AO 144 76 108 Post Procedure Information Blood Pressure: 126/81 mmHg Rhythm: Atrial Fib/Flutter Post procedural instructions were given Closure Device Time Device Success/Fail 03/03/2017 2:12:00 PM MynxGrip Successful Site Checks Time Location Status Staff Sheath In? Note 02:07 PM Rt Groin No bleeding/hematoma Aminta Molina RT Pulses Time Site Pre-Procedure Post-Procedure Note Bilateral radial 2+ Bilateral DP & PT 1+ 2:16:00 PM Bilateral DP & PT 1+ Updated by Jagjit Nguyen RN on 03/03/2017 2:39:27 PM electronically signed on 03/03/2017 2:39:56 PM with status of Final
[2017-03-03 16:27] LABS: ABG Base Excess 7 mEq/L (-2 to 3); ABG HCO3 35 mEq/L (21-27); ABG Oxygen Saturation 98 % (95-98); ABG PCO2 68 mmHg (35-45); ABG PH 7.32 pH Units (7.32-7.45); ABG PO2 110 mmHg (85-104); ABG TCO2 37 mEq/L (20-26)
[2017-03-03] MEDS: Heparin 25,000 UNIT/500 ML D5W 25,000 UNIT/500 ML MLS IVC SCH (16:29)
[2017-03-03 23:37] LABS: Activated Partial Thrombo Time 147.2 Seconds (26.0-36.0)
[2017-03-03 23:42] LABS: Heparin anti-factor XA UFH 0.55 IU/mL (0.30-0.70)
[2017-03-03 23:45] LABS: Bilirubin,Urine Negative (Negative); Blood,Urine Large (Negative); Clarity,Urine Clear (Clear); Color,Urine Yellow (Yellow); Glucose,Urine (UA) Normal (Normal); Ketones,Urine Negative (Negative); Leukocyte Esterase,Urine Negative (Negative); Nitrite,Urine Negative (Negative); Protein,Urine 100 mg/dL (Neg-Trace); Specific Gravity,Urine 1.028 (1.010-1.025); Urobilinogen,Urine Normal (Normal)
[2017-03-04 01:18] LABS: Protein/Creatinine Ratio,Urine 1.17 mg/mg (0-0.20)
[2017-03-04] MEDS: 0.9 % Sodium Chloride 1,000 ML IVC SCH (05:47)
[2017-03-04 06:54] LABS: BUN/Creatinine Ratio 16 (6-26); Blood Urea Nitrogen 17 mg/dL (8-26); Calcium 8.9 mg/dL (8.6-10.8); Carbon Dioxide 35 mEq/L (19-29); Chloride 104 mEq/L (98-109); Glucose 97 mg/dL (70-99); Osmolality,Calculated 299 (280-300); Potassium 3.8 mEq/L (3.5-4.5); Sodium 144 mEq/L (136-145); eGFR For African Americans > 60 (> 60); eGFR For Non-African Americans > 60 (> 60)
[2017-03-04] MEDS: Heparin 25,000 UNIT/500 ML D5W 25,000 UNIT/500 ML MLS IVC SCH (08:49)
[2017-03-04] MEDS: Metoprolol XL (24 HR) Succ 50 MG TAB.ER.24H PO SCH (08:52)
[2017-03-04] MEDS: Multivit/Ca/Min/Fe/FA 1 TAB TABLET PO SCH (08:53)
[2017-03-04] MEDS: Aspirin Enteric Coated 81 MG Tablet PO SCH (08:53)
[2017-03-04] MEDS: Cyanocobalamin (B-12) 1,000 MCG TABLET PO SCH (08:53)
[2017-03-04] MEDS: *HR* Digoxin 0.125 MG TABLET PO SCH (08:53)
[2017-03-04] MEDS: *HR* Acetylcysteine 20% 600 MG/3 ML ORAL SYRINGE PO SCH ×2 (08:54→20:53)
--- NOTE | 2017-03-04 09:46 | Nephrology Progress Note ---
Date of Encounter: 03/04/17 Time of Encounter: 18:00 - Assessment and Plan (1) JACQUES (acute kidney injury) Status: Resolved Nonoliguric JACQUES, improved Counseled him to avoid NSAIDs after discharge Would rec stopping IVF today Okay to resume the EVELINA Will sign-off. Thank you. Subjective Principal diagnosis: A-Flutter, CMP Interval history: Pt was s/e and did not affirm any new major complaints such as N/V/D or uremic symptoms. Objective - Vital Signs Vital signs: Vital Signs Temp Pulse Resp BP Pulse Ox 03/04/17 09:00 94 20 155/132 96 03/04/17 08:30 98.1 F 100 20 156/84 92 03/04/17 07:45 98.1 F 03/04/17 07:00 135 20 163/156 96 03/04/17 06:00 101 23 96 03/04/17 05:00 96 22 145/75 95 03/04/17 04:00 96 24 146/80 96 03/04/17 03:00 91 19 139/77 96 03/04/17 02:00 72 16 139/78 96 03/04/17 01:00 77 17 133/93 95 03/04/17 00:00 72 17 119/73 93 03/03/17 23:00 97.9 F 71 16 131/89 94 03/03/17 22:00 71 17 141/97 92 03/03/17 21:00 74 14 159/89 96 03/03/17 20:00 74 14 164/97 96 03/03/17 19:34 98.6 F 90 20 163/96 92 03/03/17 18:00 89 20 151/95 95 03/03/17 17:00 70 20 163/97 97 03/03/17 16:07 76 16 157/97 96 03/03/17 15:13 15 127/83 98 03/03/17 15:07 97.7 F 69 14 127/83 98 03/03/17 14:46 97.7 F 70 15 150/97 98 03/03/17 09:54 94 Intake and Output 03/03/17 03/04/17 03/04/17 23:59 07:59 15:59 Intake Total 293 / 293 1000 / 1000 Output Total 1750 / 1750 300 / 300 Balance -1457 / -1457 700 / 700 Intake: IV Fluids 293 / 293 1000 / 1000 0.9 % Sodium Chloride 1,000 ML 1000 / 1000 @ 60 mls/hr IVC .[id number] [facility] Rx #:[id number] Heparin 25,000 UNIT/500 ML D5W 193 / 193 25,000 unit In 500 ml @ 14 UNIT /KG/HR 27.468 mls/hr IVC . [id number] [facility] Rx#:[id number] Rocephin 1,000 MG In Dextrose 5 100 / 100 % (Minibag+) 100 ML 100 ML @ 200 mls/hr IVPB Q24H [facility] Rx#: [id number] Output: Catheter 1750 / 1750 300 / 300 - General Appearance Exam: General appearance: well-developed, well-nourished, obese EENT: ATNC, mucous membranes moist, hearing intact, vision intact Neck: supple Respiratory: clear Cardiology: edema (mild BLL edema), normal S1, normal S2 Gastrointestinal: no tenderness, no guarding, obese Integumentary: warm and dry Neurologic: alert and oriented x3 Psychiatric: mood/affect appropriate, cooperative - Lab 03/05/17 12:10 03/04/17 06:06 Most recent lab results ABG pH 7.32 pH Units (7.32-7.45) 03/03/17 16:24 ABG pCO2 68 mmHg (35-45) H 03/03/17 16:24 ABG pO2 110 mmHg (85-104) H D 03/03/17 16:24 ABG HCO3 35 mEq/L (21-27) H 03/03/17 16:24 ABG O2 Saturation 98 % (95-98) 03/03/17 16:24 Calcium 8.9 mg/dL (8.6-10.8) 03/04/17 06:06 Urine Creatinine 65 mg/dL 03/03/17 23:00 Urine Total Protein 76 mg/dL (1-14) H 03/03/17 23:00 Consult Discharge Plan - Plan Referrals: Mary Cotto, PAC [Physician Media Technician] - 03/24/17 8:30 am ,Karen Ferreira MATERIAL CONTROL ANALYST [Primary Care Provider] - 03/09/17 10:00 am Prescriptions: Atorvastatin [Lipitor] 40 mg PO HS #30 tablet Digoxin [Lanoxin] 0.125 mg PO DAILY #30 tablet Diltiazem CD (24hr) [Cardizem CD] 120 mg PO DAILY #30 cap.er.24h Lisinopril 2.5 mg PO DAILY #30 tablet Metoprolol XL (24 HR) Succ [Toprol Xl] 100 mg PO DAILY #60 tab.er.24h predniSONE [PredniSONE] 40 mg PO DAILY #4 tablet
--- NOTE | 2017-03-04 11:27 | Pulmonology Consult Note ---
<Bhupinder Banerjee - Last Filed: 03/04/17 11:23> Date of Encounter: 03/04/17 Time of Encounter: 11:23 Assessment and Plan (1) Acute respiratory failure Current Visit: Yes Status: Acute Likely related to oversedation for left heart catheterization. Although the patient does have a decreased EF there is no clear evidence of flash pulmonary edema. Respiratory failure has resolved at this time as the patient is no longer requiring BiPAP for supplemental oxygen. We recommend continued current treatment with minimizing sedating medications if the patient requires any further invasive procedures. Qualifiers: Respiratory failure complication: unspecified whether with hypoxia or hypercapnia Qualified Code(s): J96.00 - Acute respiratory failure, unspecified whether with hypoxia or hypercapnia (2) Atrial flutter with rapid ventricular response Current Visit: Yes Status: Acute Patient is currently in a flutter heart rate is well-controlled. Currently on anticoagulation with heparin. Cardiology is following and further management per cardiology. (3) At risk for obstructive sleep apnea Current Visit: Yes Status: Acute Given patient's recent respiratory event and history of snoring we recommend the patient undergo sleep study as an outpatient. (4) JACQUES (acute kidney injury) Current Visit: Yes Status: Acute Creatinine 1.48 on presentation of the GFR 46. Like related to hypoperfusion in the setting of acute heart failure. Nephrology was consulted and was following of her kidney function is normalizing the patient has good urine output so they have signed off. Continue to monitor creatinine and urine output. History of Present Illness Consult date: 03/04/17 Requesting physician: Real Flores Reason for consult: hypoxemia Chief complaint: Dyspnea History of present illness: Patient is 69-year-old male with history of hypertension who was admitted initially due to abnormal echocardiogram with a severely decreased EF. Patient was seen and evaluated for possible myocardial ischemia and subsequent undergo heart Catheterization however during the catheterization patient became acutely hypoxic to the procedure was terminated and he was transported to the ICU. Patient did not require intubation however did use BiPAP. At this time the patient is awake alert with no respiratory complaints and not requiring any supplemental oxygen. He has no complaints at this time denies chest pain, shortness of breath, fever, chills. Past Med Surg Social Fam HX - Past Medical History Medical history: arthritis, coronary artery disease, hyperlipidemia, hypertension Psychiatric history: no psych history - Past Surgical History Surgical History: knee replacement - Social History Smoking Status: Never smoker Smokeless Tobacco Status: No Alcohol use: none Drug use: none - Family History Father Living Status: Mother Living Status: Age at : 71 Cause of : AR Hx Family Cardiac Disorders: Yes Hx Family Respiratory Disorders: Yes Hx Family Endocrine Disorder: Yes Hx Family Medical Disorders: Yes Medications and Allergies Ascorbic Acid [Vitamin C] 600 mg PO DAILY 09/01/16 [History] Aspirin [Lo-Dose Aspirin EC] 81 mg PO DAILY 09/01/16 [History] Cyanocobalamin (Vitamin B-12) [Vitamin B-12] 1,000 mcg SL DAILY 09/01/16 [ History] Ibuprofen [Motrin] 600 mg PO Q8HR PRN 09/01/16 [History] Lisinopril [Zestril] 20 mg PO DAILY 09/01/16 [History] Multivitamin [One Daily Essential] 1 each PO DAILY 09/01/16 [History] Omeprazole 20 mg PO DAILY 09/01/16 [History] Metoprolol XL (24 HR) Succ [Toprol XL] 25 mg PO DAILY 02/26/17 [History] Oxycodone HCl/Acetaminophen [Percocet 10-325 mg Tablet] 1 tab PO Q6H PRN [History] 3 Allergy/AdvReac Type Severity Reaction Status Date / Time No Known Allergies Allergy Verified 02/09/17 09:54 All Systems: A 10-system review of systems was performed and is negative for pertinent findings except as documented above in the HPI. - Constitutional Constitutional: no chills, no fever(s) - Cardiovascular Cardiovascular: no chest pain, no dyspnea - Respiratory Respiratory: no cough, no dyspnea - Gastrointestinal Gastrointestinal: no abdominal pain, no melena, no nausea Physical Examination Vital Signs: Vital Signs, Last 4 Hours Temp Pulse Resp BP Pulse Ox 03/04/17 11:10 98.1 F 03/04/17 10:00 81 20 136/85 95 03/04/17 09:00 94 20 155/132 96 03/04/17 08:30 98.1 F 100 20 156/84 92 03/04/17 07:45 98.1 F General appearance: no acute distress ENT: oropharynx moist Effort: normal Auscultation: bilateral: diminished breath sounds Cardiovascular: irregular rhythm (Normal rate) Gastrointestinal: normoactive bowel sounds, soft, non-tender Extremities: no cyanosis, no clubbing, edema (1+ lower extremity bilaterally) normal mental status, non-focal exam Results - Laboratory Findings CBC and BMP: 03/03/17 00:28 03/04/17 06:06 ABG ABG pH 7.32 pH Units (7.32-7.45) 03/03/17 16:24 ABG pCO2 68 mmHg (35-45) H 03/03/17 16:24 ABG pO2 110 mmHg (85-104) H D 03/03/17 16:24 ABG O2 Saturation 98 % (95-98) 03/03/17 16:24 PT/INR, D-dimer PT 13.3 Seconds (9.4-12.1) H 02/26/17 13:44 D-Dimer 2121 ng/mLFEU (0-500) H 02/26/17 13:44 Abnormal lab findings: Abnormal lab results RBC 4.17 M/mcL (4.19-5.50) L 03/03/17 00:28 Hgb 11.6 g/dL (12.9-16.9) L 03/03/17 00:28 MCH 27.8 pg (28.0-33.3) L 03/03/17 00:28 MCHC 30.6 g/dL (31.6-35.5) L 03/03/17 00:28 RDW 16.5 % (11.5-14.5) H 03/03/17 00:28 Nucleated RBCs/100 WBC 0.2 /100 WBC (0) H 02/26/17 13:43 PT 13.3 Seconds (9.4-12.1) H 02/26/17 13:44 APTT 147.2 Seconds (26.0-36.0) H* D 03/03/17 22:55 D-Dimer 2121 ng/mLFEU (0-500) H 02/26/17 13:44 ABG pCO2 68 mmHg (35-45) H 03/03/17 16:24 ABG pO2 110 mmHg (85-104) H D 03/03/17 16:24 ABG HCO3 35 mEq/L (21-27) H 03/03/17 16:24 ABG Total CO2 37 mEq/L (20-26) H 03/03/17 16:24 ABG Base Excess 7 mEq/L (-2 to 3) H 03/03/17 16:24 Carbon Dioxide 35 mEq/L (19-29) H 03/04/17 06:06 POC Glucose 90 (58-89) H 03/03/17 14:37 Uric Acid 7.7 mg/dL (3.5-7.2) H 03/03/17 10:53 AST 41 Units/L (5-34) H 02/26/17 13:44 Troponin I 0.05 ng/mL (0-0.03) H* 02/27/17 02:02 B-Natriuretic Peptide 573 pg/mL (0-100) H 02/26/17 13:44 HDL Cholesterol 31 mg/dL (40-59) L 02/27/17 02:02 Ur Specimen Adequacy See below A 03/03/17 23:00 Ur Specific [place] 1.028 (1.010-1.025) H 03/03/17 23:00 Urine Protein 100 mg/dL (Neg-Trace) H 03/03/17 23:00 Urine Blood Large (Negative) H 03/03/17 23:00 Ur Eosinophil Smear 3 % (None Seen) H 03/03/17 23:00 Protein/Creatinin Ratio 1.17 mg/mg (0-0.20) H 03/03/17 23:00 Urine Total Protein 76 mg/dL (1-14) H 03/03/17 23:00 - Clinical Findings Intake & Output: Intake & Output 03/03/17 03/04/17 03/04/17 23:59 07:59 15:59 Intake Total 293 / 293 1000 / 1000 Output Total 1750 / 1750 300 / 300 200 / 200 Balance -1457 / -1457 700 / 700 -200 / -200 Consult Discharge Plan - Plan Referrals: Karen Richmond FIRE SUPPRESSION CAPTAIN [Primary Care Provider] - 03/09/17 10:00 am <Jose A Zaragoza - Last Filed: 03/04/17 13:40> Date of Encounter: 03/04/17 All Systems: A 10-system review of systems was performed and is negative for pertinent findings except as documented above in the HPI. Physical Examination Vital Signs: Vital Signs, Last 4 Hours Temp Pulse Resp BP Pulse Ox 03/04/17 12:00 98.1 F 100 20 158/89 98 03/04/17 11:10 98.1 F 03/04/17 11:00 100 20 158/89 98 03/04/17 10:00 81 20 136/85 95 Results - Laboratory Findings CBC and BMP: 03/03/17 00:28 03/04/17 06:06 ABG ABG pH 7.32 pH Units (7.32-7.45) 03/03/17 16:24 ABG pCO2 68 mmHg (35-45) H 03/03/17 16:24 ABG pO2 110 mmHg (85-104) H D 03/03/17 16:24 ABG O2 Saturation 98 % (95-98) 03/03/17 16:24 PT/INR, D-dimer PT 13.3 Seconds (9.4-12.1) H 02/26/17 13:44 D-Dimer 2121 ng/mLFEU (0-500) H 02/26/17 13:44 Abnormal lab findings: Abnormal lab results RBC 4.17 M/mcL (4.19-5.50) L 03/03/17 00:28 Hgb 11.6 g/dL (12.9-16.9) L 03/03/17 00:28 MCH 27.8 pg (28.0-33.3) L 03/03/17 00:28 MCHC 30.6 g/dL (31.6-35.5) L 03/03/17 00:28 RDW 16.5 % (11.5-14.5) H 03/03/17 00:28 Nucleated RBCs/100 WBC 0.2 /100 WBC (0) H 02/26/17 13:43 PT 13.3 Seconds (9.4-12.1) H 02/26/17 13:44 APTT 147.2 Seconds (26.0-36.0) H* D 03/03/17 22:55 D-Dimer 2121 ng/mLFEU (0-500) H 02/26/17 13:44 ABG pCO2 68 mmHg (35-45) H 03/03/17 16:24 ABG pO2 110 mmHg (85-104) H D 03/03/17 16:24 ABG HCO3 35 mEq/L (21-27) H 03/03/17 16:24 ABG Total CO2 37 mEq/L (20-26) H 03/03/17 16:24 ABG Base Excess 7 mEq/L (-2 to 3) H 03/03/17 16:24 Carbon Dioxide 35 mEq/L (19-29) H 03/04/17 06:06 POC Glucose 90 (58-89) H 03/03/17 14:37 Uric Acid 7.7 mg/dL (3.5-7.2) H 03/03/17 10:53 AST 41 Units/L (5-34) H 02/26/17 13:44 Troponin I 0.05 ng/mL (0-0.03) H* 02/27/17 02:02 B-Natriuretic Peptide 573 pg/mL (0-100) H 02/26/17 13:44 HDL Cholesterol 31 mg/dL (40-59) L 02/27/17 02:02 Ur Specimen Adequacy See below A 03/03/17 23:00 Ur Specific [place] 1.028 (1.010-1.025) H 03/03/17 23:00 Urine Protein 100 mg/dL (Neg-Trace) H 03/03/17 23:00 Urine Blood Large (Negative) H 03/03/17 23:00 Ur Eosinophil Smear 3 % (None Seen) H 03/03/17 23:00 Protein/Creatinin Ratio 1.17 mg/mg (0-0.20) H 03/03/17 23:00 Urine Total Protein 76 mg/dL (1-14) H 03/03/17 23:00 - Clinical Findings Intake & Output: Intake & Output 03/03/17 03/04/17 03/04/17 23:59 07:59 15:59 Intake Total 293 / 293 1000 / 1000 Output Total 1750 / 1750 300 / 300 200 / 200 Balance -1457 / -1457 700 / 700 -200 / -200 - Attending Attestation I examined this patient and my medical decision-making was reviewed with the Resident Physician. I agree with the documented findings, disposition and treatment plan as described except to the extent set forth below. Patient seen and examined. Labs, radiology, chart personally reviewed. Agree with resident's history and physical, assessment, plan with following comments: VALVE PIPE IRRIGATOR: Patient follows commands, Pulmonary: Acceptable oxygenation and ventilation. I suspect patient has sleep disorder breathing and he will need a sleep study as outpatient which I will order it for him. Patient stated that he has a snoring and he had sleep study done as outpatient but it was negative. Cardiovascular: Discussed with the contact clerk and patient is on anticoagulation at this time he is rate controlled and poor prognosis with his cardiomyopathy. GI: Nutrition per dietary and GI prophylaxis per routine Heme: DVT prophylaxis per routine Overall primarily patient is being managed by contact clerk. Concern of pulmonary edema if patient has procedure and at this time if he would have procedure, then perhaps giving came Lasix prior to that may help to lower the risk.
--- NOTE | 2017-03-04 13:29 | Cardiology Progress Note ---
Date of Encounter: 03/04/17 Time of Encounter: 09:00 Assessment and Plan (1) Cardiomyopathy Current Visit: Yes Status: Acute Per cardiology: -EF newly reduced to 20%--NICMP vs ICMP. NICMP suspected secondary to tachycardia induced from his A-Flutter with RVR. However, ischemic cause needs to be ruled out, as he does have hx of CAD ans BMS to CIRC and RCA. -On beta alisha -Currently not on ACEi/ARB due to JACQUES on admission, however neprhology states ok for fer inhibitor. Will monitor BP and consider addition prior to discharge. -Euvolemic on exam. -Low sodium diet and daily weights. -LHC yesterday with 20% left main, 25% proximal LAD, 90% diagonal 1, 40% mid circumflex, 40% proximal RCA, 30% instent restenosis mid RCA, 40% distal RCA. -Do not suspect cardiomyopathy related to CAD, suspect tachycardia induced. -Will monitor BP and consider addition of fer inhibitor. -Will transfer patient out of ICU. Qualifiers: Cardiomyopathy type: unspecified Qualified Code(s): I42.9 - Cardiomyopathy , unspecified (2) Atrial flutter with rapid ventricular response Current Visit: Yes Status: Acute Per cardiology: -Presented in new atrial flutter. Unknown timing of onset. -Average HR previous 12 hours noted to be 87. -On beta alisha. -Dig load given 02/27-02/28. Now on oral digoxin. As of note he was difficult to control on metoprolol and cardizem. -On heparin gtt for anticoagulation since LHC is anticipated prior to discharge. -CHADSVASC is 4 (Age, HTN, CAD, CHF) so exterminator anticoagulation is recommended. Determine type--NOAC vs Coumadin after LHC. Discussed with patient and he is agreeable to anticoagulation. Will decide regarding exterminator anticoagulation pending LHC. - Per discussion with will start cardizem 30mg q6 hours. Monitor BP carefully due to cardiomyopathy with cardizem. -Continue heparin drip. Will change anticoagulation to eliquis in am if HR controlled. -Will continue to monitor. (3) JACQUES (acute kidney injury) Current Visit: Yes Status: Acute Per cardiology: -Creatinine today 1.04. -Creatinine on admission 1.46. -Baseline creatinine 1-1.3. -Management per primary and nephrology services. (4) CAD (coronary artery disease) Current Visit: Yes Status: Chronic Per cardiology: -Hx of PCI. -ASA, Statin, BB. -LHC yesterday as above. May need staged PCI to diagonal. Can be addressed in outpatient setting. -Will continue to monitor. Qualifiers: Coronary Disease-Associated Artery/Lesion type: [place] artery [place] vs. transplanted heart: [place] heart Associated angina: without angina Qualified Code(s): I25.10 - Atherosclerotic heart disease of [place] coronary artery without angina pectoris Discussion w patient/family: The assessment and plan as outlined above was discussed with the patient who expressed understanding and agreement. All questions were answered. Thank you for involving us in the care of your patient. Please call with any questions. Discussed and reviewed with . Subjective Principal diagnosis: A-Flutter, CMP Interval history: Patient states he feels much better today. Patient states shortness of breath has improved from yesterday. Objective Vital Signs, Last 4 Hours Temp Pulse Resp BP Pulse Ox 03/04/17 12:00 98.1 F 100 20 158/89 98 03/04/17 11:10 98.1 F 03/04/17 11:00 100 20 158/89 98 03/04/17 10:00 81 20 136/85 95 General: Conversant, No Apparent Distress HEENT: Atraumatic, Normocephaly, Mucus Membranes Moist Neck: No JVD, Normal carotid pulses Cardiac: Reg Rate and Rhythm, Normal S1 and S2, No Murmur Lungs: Normal Breath Sounds, No Wheeze, Rales, Rhonchi Neuro: Alert and responsive, No focal deficits noted Abdomen: Soft, Non-Tender Skin: No rashes noted on visualized skin, Other (No hematoma noted to right groin access site. ) Musculoskeletal: No Chest Wall Tenderness Extremities: No Clubbing, No Cyanosis, No Edema, Normal Pulses Results 03/03/17 00:28 03/04/17 06:06 Lab Results Impressions Chest X-Ray 03/03/17 15:38 IMPRESSION: No acute process. D/ /03/2017 18:28:42 John Salazar MD / Herminia Wolfe Interpreting Provider: John Salazar MD Active Medications Acetaminophen (Tylenol) 650 mg PO Q6HR PRN PRN Reason: Mild Pain Stop: 09/01/17 08:23 Last Admin: 03/04/17 06:27 Dose: 650 mg Acetylcysteine (Acetylcysteine 20%) 600 mg PO BID [facility] Stop: 09/02/17 09:46 Last Admin: 03/04/17 08:54 Dose: 600 mg Aspirin (Aspirin Ec) 81 mg PO DAILY [facility] Stop: 08/29/17 09:01 Last Admin: 03/04/17 08:53 Dose: 81 mg Atorvastatin Calcium (Lipitor) 40 mg PO HS [facility] Stop: 08/30/17 21:01 Last Admin: 03/03/17 20:48 Dose: 40 mg Cyanocobalamin (Vitamin B12) 1,000 mcg PO DAILY [facility] Stop: 08/29/17 09:01 Last Admin: 03/04/17 08:53 Dose: 1,000 mcg Digoxin (Lanoxin) 0.125 mg PO DAILY [facility] Stop: 08/31/17 09:01 Last Admin: 03/04/17 08:53 Dose: 0.125 mg Diltiazem HCl (Cardizem) 30 mg PO Q6HR [facility] Stop: 09/03/17 12:01 Heparin Sodium/Dextrose (Heparin 25,000 Unit/500 Ml D5w) 25,000 unit in 500 mls @ 27.468 mls/hr IVC .[id number] [facility]; 14 UNIT/KG/HR PRN Reason: Protocol Stop: 09/02/17 15:46 Last Admin: 03/04/17 08:49 Dose: Not Given Metoprolol Succinate (Toprol Xl) 100 mg PO DAILY [facility] Stop: 09/01/17 09:01 Last Admin: 03/04/17 08:52 Dose: 100 mg Morphine Sulfate (Morphine Sulfate) 4 mg IVP Q3H PRN PRN Reason: severe pain Stop: 09/01/17 08:23 Multivitamins/Calcium (Thera M Plus) 1 tab PO DAILY [facility] Stop: 08/29/17 09:01 Last Admin: 03/04/17 08:53 Dose: 1 tab Naloxone HCl (Narcan) 0.4 mg IVP Q2MIN PRN PRN Reason: Opioid Reversal Stop: 08/28/17 17:18 Omeprazole (Prilosec) 20 mg PO DAILY [facility] Stop: 08/29/17 09:01 Last Admin: 03/04/17 08:53 Dose: 20 mg Oxycodone/Acetaminophen (Percocet ) 1 each PO Q6H PRN PRN Reason: Moderate Pain Stop: 08/28/17 17:16 Last Admin: 03/02/17 08:59 Dose: 1 each Laboratory Tests 03/02/17 03/03/17 03/03/17 00:28 00:28 00:28 Hgb 11.6 L Potassium Creatinine 1.84 H 1.41 H 03/04/17 06:06 Hgb Potassium 3.8 Creatinine 1.04 - Imaging and Cardiology Chest Xray: report reviewed Echo: report reviewed Cardiac cath: report reviewed - EKG Interpretation EKG results cardiology: other (Telemetry reviewed with average HR previous 12 hours noted to be 87, atrial flutter. Longest pause 1.3 seconds. PVCs noted.) Consult Discharge Plan - Plan Referrals: Karen Richmond CNP [Primary Care Provider] - 03/09/17 10:00 am
[2017-03-04] MEDS ORDERED: Naloxone 0.4 MG/ML INJ IVP PRN (14:08)
[2017-03-04] MEDS ORDERED: *HR* Morphine 2 MG/ML SYRINGE IVP PRN (14:08)
[2017-03-04] MEDS ORDERED: *HR* OxyCODONE/APAP 10/325 TABLET PO PRN (14:08)
[2017-03-04] MEDS ORDERED: Heparin 25,000 UNIT/500 ML D5W 25,000 UNIT/500 ML MLS IVC SCH (14:08)
[2017-03-04 14:56] LABS: Hematocrit 38.3 % (37.5-50.1); Hemoglobin 11.5 g/dL (12.9-16.9); Mean Corpuscular Hemoglobin 27.6 pg (28.0-33.3); Mean Corpuscular Volume 92.1 fL (83.0-100.0); Mean Platelet Volume 9.2 fL (9.4-12.4); Platelet Count 167 K/mcL (140-400); Red Blood Count 4.16 M/mcL (4.19-5.50); Red Cell Distribution Width 16.3 % (11.5-14.5)
[2017-03-04 15:05] LABS: INR 1.2; Prothrombin Time 12.8 Seconds (9.4-12.1)
[2017-03-04 15:09] LABS: Activated Partial Thrombo Time 26.4 Seconds (26.0-36.0)
[2017-03-05 06:58] LABS: Activated Partial Thrombo Time 212.5 Seconds (26.0-36.0)
[2017-03-05 07:51] LABS: Heparin anti-factor XA UFH 0.81 IU/mL (0.30-0.70)
[2017-03-05] MEDS: Multivit/Ca/Min/Fe/FA 1 TAB TABLET PO SCH (08:50)
[2017-03-05] MEDS: Cyanocobalamin (B-12) 1,000 MCG TABLET PO SCH (08:51)
[2017-03-05] MEDS: Aspirin Enteric Coated 81 MG Tablet PO SCH (08:51)
[2017-03-05] MEDS: Metoprolol XL (24 HR) Succ 50 MG TAB.ER.24H PO SCH (08:51)
[2017-03-05] MEDS: *HR* Digoxin 0.125 MG TABLET PO SCH (08:51)
--- NOTE | 2017-03-05 10:36 | Internal Med Progress Note ---
Date of Encounter: 03/05/17 Time of Encounter: 10:30 - Assessment and plan (1) Acute respiratory failure Current Visit: Yes Status: Acute Assessment and plan: acute hypoxic hypercapnic respiratory failure likely secondary to acute COPD exacerbation from possible acute bronchitis likely viral Start oral prednisone, Silas Completed 5 doses of Rocephin in the past few days (2) Atrial flutter Current Visit: Yes Status: Acute Assessment and plan: Current Visit: Yes Status: Acute Assessment and plan: New diagnosis of A- flutter with RVR Unresponsive Initially to beta alisha outpatient controlled BP 65-76 may be due to cardiomyopathy vs pneumonia vs other infectious etiology/UTI troponin 0.05 elevated DDimer 2120 V/Q scan demonstrated low PE probability CXR showed right lower lobe atelectasis, no change from prior chest x-ray -LHC was not able to be completed due to acute resp failure cardiology following, awaiting recommendations, may resume heparin drip, keep aptt close to 50 as he developed some hematuria received IVF and stopped lasix after his creatinine got worse -digoxin -metoprolol Qualifiers: Atrial flutter type: typical Qualified Code(s): I48.3 - Typical atrial flutter (3) Acute CHF Current Visit: Yes Status: Acute systolic CHF Assessment and plan: Patient has a history of CHF Significantly reduced EF=20% on 02/26/2017, EF=60% in 2014 BNP 450 CXR showed right lower lobe atelectasis, no change from prior chest x-ray Qualifiers: Congestive heart failure type: unspecified congestive heart failure type Qualified Code(s): I50.9 - Heart failure, unspecified (4) Echocardiogram abnormal Current Visit: Yes Status: Acute Assessment and plan: Patient has a history of CHF Significantly reduced EF=20% on 02/26/2017, EF=60% in 2014 BNP 450 -see plan above (5) CAD (coronary artery disease) Current Visit: Yes Status: Chronic Assessment and plan: History of PR 3 years ago stents x 3 -Continue home lisinopril, metoprolol, asa Qualifiers: Coronary Disease-Associated Artery/Lesion type: unspecified vessel or lesion type [place] vs. transplanted heart: unspecified whether [place] or transplanted heart Associated angina: angina presence unspecified Qualified Code(s): I25.10 - Atherosclerotic heart disease of [place] coronary artery without angina pectoris (6) Dyspnea Current Visit: Yes Status: Acute Assessment and plan: Patient reports shortness breath is currently on 2 L oxygen 94% sat Qualifiers: Dyspnea type: unspecified Qualified Code(s): R06.00 - Dyspnea, unspecified (7) HTN (hypertension) Current Visit: Yes Status: Chronic Assessment and plan: History of hypertension -continue home medications Qualifiers: Hypertension type: essential hypertension Qualified Code(s): I10 - Essential (primary) hypertension (8) HLD (hyperlipidemia) Current Visit: No Status: Chronic Assessment and plan: History of hyperlipidemia Qualifiers: Hyperlipidemia type: unspecified Qualified Code(s): E78.5 - Hyperlipidemia , unspecified (9) CKD3 Current Visit: Yes Status: Acute Assessment and plan: acute on chronic renal failure Qualifiers: Respiratory failure complication: unspecified whether with hypoxia or hypercapnia Qualified Code(s): J96.00 - Acute respiratory failure, unspecified whether with hypoxia or hypercapnia - Subjective Interval history: eeling less short of breath. Complaining of headaches anymore. Denies fevers or chills, denies any chest pain, no palpitations. Leg edema has come down. No diarrhea - Constitutional Vitals: Temp Pulse Resp BP Pulse Ox 97.7 F 102 18 126/90 95 03/05/17 08:35 03/05/17 08:35 03/05/17 08:35 03/05/17 08:35 03/05/17 08:35 General appearance: Present: cooperative, A&O X 3, no acute distress, answers questions appropriately - Head Head exam: Present: atraumatic, normocephalic - Eye Eye exam: Present: PERRL, conjuntiva pink, sclera anicteric Pupils: Present: PERRL - Neck Neck exam general surgery: Present: supple, trachea midline. Absent: lymphadenopathy - Respiratory Respiratory exam: Present: decreased breath sounds, CTAB. Absent: accessory muscle use, rales, rhonchi, wheezes (Mild diffuse wheezing ) - Cardiovascular Cardiovascular exam: Present: RRR, +S1, +S2. Absent: diastolic murmur, gallop, rubs, systolic murmur - GI/Abdominal GI/Abdominal exam: Present: normal bowel sounds, soft, no peritoneal signs. Absent: distended, tenderness - Extremities Exam Extremities exam: Present: pedal edema (Bilateral +1 pitting edema both lower extremities improved), warm, radial pulses palpable and symmetrical. Absent: calf tenderness, cyanotic - Neurological Exam Neurological exam: Present: CN II-XII intact, oriented X3, no focal deficits. Absent: pronater drift, facial droop, speech deficit - Skin Skin exam: Present: dry, intact Internal Medicine: Result - Labs CBC & Chem 7: 03/04/17 14:38 03/04/17 06:06 Labs: Short CBC 03/04/17 Range/Units 14:38 WBC 11.1 (4.3-11.1) K/mcL Hgb 11.5 L (12.9-16.9) g/dL Hct 38.3 (37.5-50.1) % Plt Count 167 (140-400) K/mcL - ABG Interpretation ABG results: ABG ABG pH 7.32 pH Units (7.32-7.45) 03/03/17 16:24 ABG pCO2 68 mmHg (35-45) H 03/03/17 16:24 ABG pO2 110 mmHg (85-104) H D 03/03/17 16:24 ABG O2 Saturation 98 % (95-98) 03/03/17 16:24 PT/INR, D-dimer PT 12.8 Seconds (9.4-12.1) H 03/04/17 14:38 D-Dimer 2121 ng/mLFEU (0-500) H 02/26/17 13:44 Consult Discharge Plan - Plan Referrals: Mary Cotto, PAC [Physician [employer] Make Up Helper] - 03/24/17 8:30 am Karen Richmond FAMILY NURSE [Primary Care Provider] - 03/09/17 10:00 am
[2017-03-05] MEDS: *HR* Acetylcysteine 20% 600 MG/3 ML ORAL SYRINGE PO SCH ×2 (10:41→21:31)
[2017-03-05] MEDS ORDERED: APIXABAN 5 MG TABLET PO SCH (11:00)
--- NOTE | 2017-03-05 12:06 | Cardiology Progress Note ---
Date of Encounter: 03/05/17 Time of Encounter: 11:30 Assessment and Plan (1) Cardiomyopathy Current Visit: Yes Status: Acute Per cardiology: -EF newly reduced to 20%--NICMP vs ICMP. NICMP suspected secondary to tachycardia induced from his A-Flutter with RVR. However, ischemic cause needs to be ruled out, as he does have hx of CAD ans BMS to CIRC and RCA. -On beta alisha -Currently not on ACEi/ARB due to JACQUES on admission, however neprhology states ok for fer inhibitor. -Euvolemic on exam. -Low sodium diet and daily weights. -LHC yesterday with 20% left main, 25% proximal LAD, 90% diagonal 1, 40% mid circumflex, 40% proximal RCA, 30% instent restenosis mid RCA, 40% distal RCA. -Do not suspect cardiomyopathy related to CAD, suspect tachycardia induced. -Lisinopril 2.5mg added today. Qualifiers: Cardiomyopathy type: unspecified Qualified Code(s): I42.9 - Cardiomyopathy , unspecified (2) Atrial flutter with rapid ventricular response Current Visit: Yes Status: Acute Per cardiology: -Presented in new atrial flutter. Unknown timing of onset. -Average HR previous 12 hours noted to be 77. -On beta alisha and cardizem. -Dig load given 02/27-02/28. Now on oral digoxin. As of note he was difficult to control on metoprolol and cardizem. -On heparin gtt for anticoagulation. -CHADSVASC is 4 (Age, HTN, CAD, CHF) so oysterman anticoagulation is recommended. Determine type--NOAC vs Coumadin after LHC. Discussed with patient and he is agreeable to anticoagulation. -Per discussion with will switch short acting cardizem to long acting. Monitor BP carefully with cardizem and cardiomyopathy. -Will stop heparin drip, hematuria noted in urinal at bedside. Pending urology evaluation, plan to start eliquis 5mg BID. -Will continue to monitor. (3) JACQUES (acute kidney injury) Current Visit: Yes Status: Acute Per cardiology: -Creatinine yesterday 1.04. -Creatinine on admission 1.46. -Baseline creatinine 1-1.3. -Management per primary and nephrology services. (4) CAD (coronary artery disease) Current Visit: Yes Status: Chronic Per cardiology: -Hx of PCI. -ASA, Statin, BB. -LHC yesterday as above. May need staged PCI to diagonal. Can be addressed in outpatient setting. -Will continue to monitor. Qualifiers: Coronary Disease-Associated Artery/Lesion type: [place] artery [place] vs. transplanted heart: [place] heart Associated angina: without angina Qualified Code(s): I25.10 - Atherosclerotic heart disease of [place] coronary artery without angina pectoris (5) Hematuria Current Visit: Yes Status: Acute Per cardiology: -Hematuria noted in urinal at bedside. -Hemoglobin has remained stable. -Will check CBC for today. -Recommend urology consult. -Will hold anticoagulation for now until seen by urology. Qualifiers: Hematuria type: unspecified type Qualified Code(s): R31.9 - Hematuria, unspecified Discussion w patient/family: The assessment and plan as outlined above was discussed with the patient who expressed understanding and agreement. All questions were answered. Thank you for involving us in the care of your patient. Please call with any questions. Discussed and reviewed with . Subjective Principal diagnosis: A-Flutter, CMP Interval history: Patient states he feels much better today. Patient complains of blood in urine. Objective Vital Signs, Last 4 Hours Temp Pulse Resp BP Pulse Ox 03/05/17 10:37 97.9 F 93 18 139/92 97 03/05/17 08:35 97.7 F 102 18 126/90 95 General: Conversant, No Apparent Distress HEENT: Atraumatic, Normocephaly, Mucus Membranes Moist Neck: No JVD, Normal carotid pulses Cardiac: Normal S1 and S2, No Murmur, Other (Irregularly irregular) Lungs: Normal Breath Sounds, No Wheeze, Rales, Rhonchi Neuro: Alert and responsive, No focal deficits noted Abdomen: Soft, Non-Tender Skin: No rashes noted on visualized skin Musculoskeletal: No Chest Wall Tenderness Extremities: No Clubbing, No Cyanosis, Normal Pulses, Other (Mild pedal edema noted, non-pitting. ) Results 03/05/17 12:10 03/04/17 06:06 Lab Results Active Medications Acetaminophen (Tylenol) 650 mg PO Q6HR PRN PRN Reason: Mild Pain Stop: 09/01/17 08:23 Acetylcysteine (Acetylcysteine 20%) 600 mg PO BID [facility] Stop: 09/02/17 09:46 Last Admin: 03/05/17 10:41 Dose: 600 mg Aspirin (Aspirin Ec) 81 mg PO DAILY [facility] Stop: 08/29/17 09:01 Last Admin: 03/05/17 08:51 Dose: 81 mg Atorvastatin Calcium (Lipitor) 40 mg PO HS [facility] Stop: 08/30/17 21:01 Last Admin: 03/04/17 20:53 Dose: 40 mg Cyanocobalamin (Vitamin B12) 1,000 mcg PO DAILY [facility] Stop: 08/29/17 09:01 Last Admin: 03/05/17 08:51 Dose: 1,000 mcg Digoxin (Lanoxin) 0.125 mg PO DAILY [facility] Stop: 08/31/17 09:01 Last Admin: 03/05/17 08:51 Dose: 0.125 mg Diltiazem HCl (Cardizem Cd) 120 mg PO DAILY [facility] Stop: 09/04/17 15:01 Lisinopril (Zestril) 2.5 mg PO DAILY [facility] PRN Reason: Protocol Stop: 09/04/17 11:01 Metoprolol Succinate (Toprol Xl) 100 mg PO DAILY [facility] Stop: 09/01/17 09:01 Last Admin: 03/05/17 08:51 Dose: 100 mg Morphine Sulfate (Morphine Sulfate) 4 mg IVP Q3H PRN PRN Reason: severe pain Stop: 09/01/17 08:23 Multivitamins/Calcium (Thera M Plus) 1 tab PO DAILY [facility] Stop: 08/29/17 09:01 Last Admin: 03/05/17 08:50 Dose: 1 tab Naloxone HCl (Narcan) 0.4 mg IVP Q2MIN PRN PRN Reason: Opioid Reversal Stop: 08/28/17 17:18 Omeprazole (Prilosec) 20 mg PO DAILY [facility] Stop: 08/29/17 09:01 Last Admin: 03/05/17 08:51 Dose: 20 mg Oxycodone/Acetaminophen (Percocet 10/325) 1 each PO Q6H PRN PRN Reason: Moderate Pain Stop: 08/28/17 17:16 Prednisone (Prednisone) 40 mg PO DAILY [facility] Stop: 09/04/17 10:46 Laboratory Tests 03/01/17 03/02/17 03/03/17 02:40 00:28 00:28 Hgb 11.6 L Creatinine 1.34 H 1.84 H 03/03/17 03/04/17 03/04/17 00:28 06:06 14:38 Hgb 11.5 L Creatinine 1.41 H 1.04 - Imaging and Cardiology Chest Xray: report reviewed Echo: report reviewed Cardiac cath: report reviewed - EKG Interpretation EKG results cardiology: other (Telemetry reviewed with average HR 77, atrial flutter. PVCs noted.) Consult Discharge Plan - Plan Referrals: Mary Cotto, PAC [Physician Building Carpenter Helper] - 03/24/17 8:30 am Karen Richmond, AIR POLLUTION COMPLIANCE INSPECTOR [Primary Care Provider] - 03/09/17 10:00 am
[2017-03-05 12:25] LABS: Hematocrit 37.5 % (37.5-50.1); Hemoglobin 11.6 g/dL (12.9-16.9); Mean Corpuscular HGB Conc 30.9 g/dL (31.6-35.5); Mean Corpuscular Hemoglobin 28.6 pg (28.0-33.3); Mean Corpuscular Volume 92.4 fL (83.0-100.0); Mean Platelet Volume 9.7 fL (9.4-12.4); Platelet Count 163 K/mcL (140-400); Red Blood Count 4.06 M/mcL (4.19-5.50); Red Cell Distribution Width 16.3 % (11.5-14.5)
[2017-03-05 15:40] LABS: Bilirubin,Urine Negative (Negative); Blood,Urine Moderate (Negative); Clarity,Urine Cloudy (Clear); Glucose,Urine (UA) Normal (Normal); Ketones,Urine Negative (Negative); Leukocyte Esterase,Urine Negative (Negative); Nitrite,Urine Negative (Negative); Protein,Urine 100 mg/dL (Neg-Trace); Specific Gravity,Urine 1.019 (1.010-1.025); Urobilinogen,Urine Normal (Normal)
[2017-03-05 15:44] LABS: Color,Urine Red (Yellow)
--- NOTE | 2017-03-05 16:53 | Urology - Consult Note ---
Date of Encounter: 03/05/17 Time of Encounter: 16:50 - Assessment and Plan (1) Hematuria Current Visit: Yes Status: Acute Assessment and plan: At this time I would recommend to hold on the heparin overnight. Patient's catheter could have caused some irritation within the prostate. We will see if his hematuria started to resolve by tomorrow. May need replacement of catheter but patient is very hesitant regarding this. Will re-eval tomorrow morning Qualifiers: Hematuria type: unspecified type Qualified Code(s): R31.9 - Hematuria, unspecified Urology CN:HPI Consult date: 03/05/17 Reason for consult Urology: Gross Hematuria Requesting physician: Greg Akins History of present illness: Randal is a 77-year-old male with a history of admission secondary to cardiac issues. Patient had a catheter placed somewhere near admission which was removed this a.m. Patient started to develop some hematuria subsequently. He was on a heparin drip which has been held. He is able to void without any clots or difficulty at this time. Patient admits to minimal voiding problems prior to this admission. Past Med Surg Social Fam HX - Past Medical History Medical history: arthritis, coronary artery disease, hyperlipidemia, hypertension Psychiatric history: no psych history - Past Surgical History Surgical History: knee replacement - Social History Smoking Status: Never smoker Smokeless Tobacco Status: No Alcohol use: none Drug use: none - Family History Father Living Status: Mother Living Status: Age at : 71 Cause of : MS Hx Family Cardiac Disorders: Yes Hx Family Respiratory Disorders: Yes Hx Family Endocrine Disorder: Yes Hx Family Medical Disorders: Yes Medications and Allergies Ascorbic Acid [Vitamin C] 600 mg PO DAILY 09/01/16 [History] Aspirin [Lo-Dose Aspirin EC] 81 mg PO DAILY 09/01/16 [History] Cyanocobalamin (Vitamin B-12) [Vitamin B-12] 1,000 mcg SL DAILY 09/01/16 [ History] Ibuprofen [Motrin] 600 mg PO Q8HR PRN 09/01/16 [History] Lisinopril [Zestril] 20 mg PO DAILY 09/01/16 [History] Multivitamin [One Daily Essential] 1 each PO DAILY 09/01/16 [History] Omeprazole 20 mg PO DAILY 09/01/16 [History] Metoprolol XL (24 HR) Succ [Toprol XL] 25 mg PO DAILY 02/26/17 [History] Oxycodone HCl/Acetaminophen [Percocet 10-325 mg Tablet] 1 tab PO Q6H PRN [History] 3 Allergy/AdvReac Type Severity Reaction Status Date / Time No Known Allergies Allergy Verified 02/09/17 09:54 Review of Systems - Constitutional no chills - EENT Nose, mouth and throat: no dizziness - Cardiovascular no chest pain - Respiratory no cough - Gastrointestinal no abdominal pain - Genitourinary as per HPI Exam Initial Vital Signs Temp Pulse Resp BP Pulse Ox 99.0 F 144 18 134/103 94 02/26/17 13:20 02/26/17 13:20 02/26/17 13:20 02/26/17 13:20 02/26/17 13:20 - General physical appearance Present: well developed - Respiratory Present: normal respiratory effort - Abdomen Abdomen: Present: soft - Integumentary Present: no rash - Neurologic Present: normal coordination Urology Results - Labs 03/05/17 12:10 03/04/17 06:06 Abnormal lab results WBC 12.1 K/mcL (4.3-11.1) H 03/05/17 12:10 RBC 4.06 M/mcL (4.19-5.50) L 03/05/17 12:10 Hgb 11.6 g/dL (12.9-16.9) L 03/05/17 12:10 MCHC 30.9 g/dL (31.6-35.5) L 03/05/17 12:10 RDW 16.3 % (11.5-14.5) H 03/05/17 12:10 Nucleated RBCs/100 WBC 0.2 /100 WBC (0) H 02/26/17 13:43 PT 12.8 Seconds (9.4-12.1) H 03/04/17 14:38 APTT 212.5 Seconds (26.0-36.0) H* D 03/05/17 06:29 D-Dimer 2121 ng/mLFEU (0-500) H 02/26/17 13:44 Heparin Anti-Xa, Unfract 0.81 IU/mL (0.30-0.70) H 03/05/17 06:29 ABG pCO2 68 mmHg (35-45) H 03/03/17 16:24 ABG pO2 110 mmHg (85-104) H D 03/03/17 16:24 ABG HCO3 35 mEq/L (21-27) H 03/03/17 16:24 ABG Total CO2 37 mEq/L (20-26) H 03/03/17 16:24 ABG Base Excess 7 mEq/L (-2 to 3) H 03/03/17 16:24 Carbon Dioxide 35 mEq/L (19-29) H 03/04/17 06:06 POC Glucose 90 (58-89) H 03/03/17 14:37 Uric Acid 7.7 mg/dL (3.5-7.2) H 03/03/17 10:53 AST 41 Units/L (5-34) H 02/26/17 13:44 Troponin I 0.05 ng/mL (0-0.03) H* 02/27/17 02:02 B-Natriuretic Peptide 573 pg/mL (0-100) H 02/26/17 13:44 HDL Cholesterol 31 mg/dL (40-59) L 02/27/17 02:02 Ur Specimen Adequacy See below A 03/05/17 15:15 Urine Color Red (Yellow) A 03/05/17 15:15 Urine Clarity Cloudy (Clear) A 03/05/17 15:15 Urine Protein 100 mg/dL (Neg-Trace) H 03/05/17 15:15 Urine Blood Moderate (Negative) H 03/05/17 15:15 Ur Eosinophil Smear 3 % (None Seen) H 03/03/17 23:00 Protein/Creatinin Ratio 1.17 mg/mg (0-0.20) H 03/03/17 23:00 Urine Total Protein 76 mg/dL (1-14) H 03/03/17 23:00 All other labs normal. Consult Discharge Plan - Plan Referrals: Mary Cotto, PAC [Physician Manager Transportation] - 03/24/17 8:30 am Karen Richmond SAP PORTAL ARCHITECT [Primary Care Provider] - 03/09/17 10:00 am
[2017-03-05] MEDS: Diltiazem CD (24hr) 120 MG CAPSULE PO SCH (17:25)
[2017-03-05] MEDS: predniSONE 20 MG TABLET PO SCH (17:25)
[2017-03-05] MEDS: Acetaminophen 325 MG TABLET PO PRN (21:09)
[2017-03-06] MEDS: Acetaminophen 325 MG TABLET PO PRN (06:46)
[2017-03-06] MEDS: Metoprolol XL (24 HR) Succ 50 MG TAB.ER.24H PO SCH (07:26)
[2017-03-06] MEDS: Diltiazem CD (24hr) 120 MG CAPSULE PO SCH (07:26)
[2017-03-06] MEDS: *HR* Digoxin 0.125 MG TABLET PO SCH (07:27)
--- NOTE | 2017-03-06 08:09 | Urology Progress Note ---
Date of Encounter: 03/06/17 Time of Encounter: 08:07 - Assessment and Plan (1) Hematuria Current Visit: Yes Status: Acute Assessment and plan: appears to be resolving. ok to slowely start introducing anticoag meds Qualifiers: Hematuria type: unspecified type Qualified Code(s): R31.9 - Hematuria, unspecified Progress Note Narrative: patient seen this am. sleeping. urinal on stand showed clearing urine with some dark blood in it. Objective Initial Vital Signs Temp Pulse Resp BP Pulse Ox 99.0 F 144 18 134/103 94 02/26/17 13:20 02/26/17 13:20 02/26/17 13:20 02/26/17 13:20 02/26/17 13:20 - General physical appearance Present: well developed - Abdomen Present: soft - Labs 03/05/17 12:10 03/04/17 06:06 Consult Discharge Plan - Plan Referrals: Mary Cotto PAC [Physician Appliance Mechanic] - 03/24/17 8:30 am Karen Richmond PIPE LINE INSPECTOR [Primary Care Provider] - 03/09/17 10:00 am
[2017-03-06] MEDS: Cyanocobalamin (B-12) 1,000 MCG TABLET PO SCH (10:35)
[2017-03-06] MEDS: predniSONE 20 MG TABLET PO SCH (10:35)
[2017-03-06] MEDS: Multivit/Ca/Min/Fe/FA 1 TAB TABLET PO SCH (10:35)
[2017-03-06] MEDS: Aspirin Enteric Coated 81 MG Tablet PO SCH (10:35)
--- NOTE | 2017-03-06 10:39 | Internal Med Progress Note ---
Date of Encounter: 03/06/17 Time of Encounter: 10:39 - Constitutional Vitals: Temp Pulse Resp BP Pulse Ox 98 F 70 18 143/93 97 03/06/17 08:00 03/06/17 08:00 03/06/17 08:00 03/06/17 08:00 03/06/17 08:00 General appearance: Present: cooperative, A&O X 3, no acute distress, answers questions appropriately Internal Medicine: Result - Labs CBC & Chem 7: 03/05/17 12:10 03/04/17 06:06 Labs: Short CBC 03/05/17 Range/Units 12:10 WBC 12.1 H (4.3-11.1) K/mcL Hgb 11.6 L (12.9-16.9) g/dL Hct 37.5 (37.5-50.1) % Plt Count 163 (140-400) K/mcL Urine 03/05/17 Range/Units 15:15 Urine Color Red A (Yellow) Urine Clarity Cloudy A (Clear) Urine pH 7.0 (5.0-8.0) pH Units Ur Specific Newman 1.019 (1.010-1.025) Urine Protein 100 H (Neg-Trace) mg/dL Urine Glucose (UA) Normal (Normal) mg/dL - ABG Interpretation ABG results: ABG ABG pH 7.32 pH Units (7.32-7.45) 03/03/17 16:24 ABG pCO2 68 mmHg (35-45) H 03/03/17 16:24 ABG pO2 110 mmHg (85-104) H D 03/03/17 16:24 ABG O2 Saturation 98 % (95-98) 03/03/17 16:24 PT/INR, D-dimer PT 12.8 Seconds (9.4-12.1) H 03/04/17 14:38 D-Dimer 2121 ng/mLFEU (0-500) H 02/26/17 13:44 Consult Discharge Plan - Plan Referrals: Mary Cotto PAC [Physician Pulp Bleacher] - 03/24/17 8:30 am Karen Richmond RECEPTION [Primary Care Provider] - 03/09/17 10:00 am
--- NOTE | 2017-03-06 11:40 | Cardiology Progress Note ---
Date of Encounter: 03/06/17 Time of Encounter: 10:00 Assessment and Plan (1) Cardiomyopathy Current Visit: Yes Status: Acute Per cardiology: -EF newly reduced to 20%--NICMP vs ICMP. NICMP suspected secondary to tachycardia induced from his A-Flutter with RVR. However, ischemic cause needs to be ruled out, as he does have hx of CAD ans BMS to CIRC and RCA. -On beta alisha and fer inhibitor. -Euvolemic on exam. -Low sodium diet and daily weights. -LHC yesterday with 20% left main, 25% proximal LAD, 90% diagonal 1, 40% mid circumflex, 40% proximal RCA, 30% instent restenosis mid RCA, 40% distal RCA. -Do not suspect cardiomyopathy related to CAD, suspect tachycardia induced. -Cardiology will sign off and will follow in outpatient setting. Follow up set. Qualifiers: Cardiomyopathy type: unspecified Qualified Code(s): I42.9 - Cardiomyopathy , unspecified (2) Atrial flutter with rapid ventricular response Current Visit: Yes Status: Acute Per cardiology: -Presented in new atrial flutter. Unknown timing of onset. -Average HR previous 12 hours noted to be 77. -On beta alisha and cardizem, and digoxin. -CHADSVASC is 4 (Age, HTN, CAD, CHF) so termite helper anticoagulation is recommended. -On digoxin, beta alisha, and cardizem. -Per urology note, ok to restart anticoagulation. Discussed with patient. Patient refuses anticoagulation. Educated patient on increased risk of CVA or embolic event without anticoagulation. Patient states understanding and still refusing anticoagulation. -patient also educated on need for anticoagulation if desires attempt at sinus rhythm. Patient states understanding and still refusing anticoagulation. -Will continue to monitor in outpatient setting. (3) JACQUES (acute kidney injury) Current Visit: Yes Status: Acute Per cardiology: -Creatinine yesterday 1.04. -Creatinine on admission 1.46. -Baseline creatinine 1-1.3. -Management per primary and nephrology services. (4) CAD (coronary artery disease) Current Visit: Yes Status: Chronic Per cardiology: -Hx of PCI. -ASA, Statin, BB. -LHC yesterday as above. May need staged PCI to diagonal. Can be addressed in outpatient setting. -Denies chest pain. -Will continue to monitor in outpatient setting. Qualifiers: Coronary Disease-Associated Artery/Lesion type: [place] artery [place] vs. transplanted heart: [place] heart Associated angina: without angina Qualified Code(s): I25.10 - Atherosclerotic heart disease of [place] coronary artery without angina pectoris (5) Hematuria Current Visit: Yes Status: Acute Per cardiology: -Hematuria noted in urinal at bedside. -Hemoglobin has remained stable. -Management per primary and urology services. Qualifiers: Hematuria type: unspecified type Qualified Code(s): R31.9 - Hematuria, unspecified Discussion w patient/family: The assessment and plan as outlined above was discussed with the patient who expressed understanding and agreement. All questions were answered. Thank you for involving us in the care of your patient. Please call with any questions. Discussed and reviewed with . Subjective Principal diagnosis: A-Flutter, CMP Interval history: Patient states he feels much better today. Patient states he feels ready to go home. Objective Vital Signs, Last 4 Hours Temp Pulse Resp BP Pulse Ox 03/06/17 08:00 98 F 70 18 143/93 97 General: Conversant, No Apparent Distress HEENT: Atraumatic, Normocephaly, Mucus Membranes Moist Neck: No JVD, Normal carotid pulses Cardiac: Normal S1 and S2, No Murmur, Other (Irregularly irregular) Lungs: Normal Breath Sounds, No Wheeze, Rales, Rhonchi Neuro: Alert and responsive, No focal deficits noted Abdomen: Soft, Non-Tender Skin: No rashes noted on visualized skin Musculoskeletal: No Chest Wall Tenderness Extremities: No Clubbing, No Cyanosis, No Edema, Normal Pulses Results 03/05/17 12:10 03/04/17 06:06 Lab Results Active Medications Acetaminophen (Tylenol) 650 mg PO Q6HR PRN PRN Reason: Mild Pain Stop: 09/01/17 08:23 Last Admin: 03/06/17 06:46 Dose: 650 mg Acetylcysteine (Acetylcysteine 20%) 600 mg PO BID [facility] Stop: 09/02/17 09:46 Last Admin: 03/05/17 21:31 Dose: 600 mg Aspirin (Aspirin Ec) 81 mg PO DAILY [facility] Stop: 08/29/17 09:01 Last Admin: 03/06/17 10:35 Dose: 81 mg Atorvastatin Calcium (Lipitor) 40 mg PO HS [facility] Stop: 08/30/17 21:01 Last Admin: 03/05/17 20:26 Dose: 40 mg Cyanocobalamin (Vitamin B12) 1,000 mcg PO DAILY [facility] Stop: 08/29/17 09:01 Last Admin: 03/06/17 10:35 Dose: 1,000 mcg Digoxin (Lanoxin) 0.125 mg PO DAILY [facility] Stop: 08/31/17 09:01 Last Admin: 03/06/17 07:27 Dose: 0.125 mg Diltiazem HCl (Cardizem Cd) 120 mg PO DAILY [facility] Stop: 09/04/17 15:01 Last Admin: 03/06/17 07:26 Dose: 120 mg Lisinopril (Zestril) 2.5 mg PO DAILY [facility] PRN Reason: Protocol Stop: 09/04/17 11:01 Last Admin: 03/06/17 10:34 Dose: 2.5 mg Metoprolol Succinate (Toprol Xl) 100 mg PO DAILY [facility] Stop: 09/01/17 09:01 Last Admin: 03/06/17 07:26 Dose: 100 mg Morphine Sulfate (Morphine Sulfate) 4 mg IVP Q3H PRN PRN Reason: severe pain Stop: 09/01/17 08:23 Multivitamins/Calcium (Thera M Plus) 1 tab PO DAILY [facility] Stop: 08/29/17 09:01 Last Admin: 03/06/17 10:35 Dose: 1 tab Naloxone HCl (Narcan) 0.4 mg IVP Q2MIN PRN PRN Reason: Opioid Reversal Stop: 08/28/17 17:18 Omeprazole (Prilosec) 20 mg PO DAILY [facility] Stop: 08/29/17 09:01 Last Admin: 03/06/17 10:34 Dose: 20 mg Oxycodone/Acetaminophen (Percocet 10/325) 1 each PO Q6H PRN PRN Reason: Moderate Pain Stop: 08/28/17 17:16 Prednisone (Prednisone) 40 mg PO DAILY [facility] Stop: 09/04/17 10:46 Last Admin: 03/06/17 10:35 Dose: 40 mg Laboratory Tests 03/04/17 03/05/17 06:06 12:10 Hgb 11.6 L Creatinine 1.04 - Imaging and Cardiology Chest Xray: report reviewed Echo: report reviewed Cardiac cath: report reviewed - EKG Interpretation EKG results cardiology: other (Telemetry reviewed with average HR previous 12 hours noted to be 77, atrial flutter. PVCs and couplets noted.) Consult Discharge Plan - Plan Referrals: Mary Cotto, PAC [Physician Ambulatory Care Coordinator] - 03/24/17 8:30 am Karen Richmond CONSTRUCTION TECHNICIAN [Primary Care Provider] - 03/09/17 10:00 am
[2017-03-06] MEDS: *HR* Acetylcysteine 20% 600 MG/3 ML ORAL SYRINGE PO SCH (12:03)
--- NOTE | 2017-03-06 12:41 | Discharge Summary ---
Date of Encounter: 03/06/17 Time of Encounter: 10:35 - Discharge Diagnosis (1) CAD (coronary artery disease) Priority: Secondary Status: Chronic Comments: [facility] 03/05 with 20% left main, 25% proximal LAD, 90% diagonal 1, 40% mid circumflex, 40% proximal RCA, 30% instent restenosis mid RCA, 40% distal RCA. Continue ASA, Lipitor, BB at home Represent to ER if ursula pain Qualifiers: Coronary Disease-Associated Artery/Lesion type: [place] artery [place] vs. transplanted heart: [place] heart Associated angina: without angina Qualified Code(s): I25.10 - Atherosclerotic heart disease of [place] coronary artery without angina pectoris (2) HTN (hypertension) Priority: Secondary Status: Chronic Comments: Controlled Discharged home on current regimen: Toprol 100, Diltiazem 120, Lisinopril 2.5 Follow up with PCP Qualifiers: Hypertension type: essential hypertension Qualified Code(s): I10 - Essential (primary) hypertension (3) HLD (hyperlipidemia) Priority: Secondary Status: Chronic Comments: Continue Lipitor at home Dietary modification encouraged Qualifiers: Hyperlipidemia type: unspecified Qualified Code(s): E78.5 - Hyperlipidemia , unspecified (4) Atrial flutter Priority: Primary Status: Acute Comments: Newly diagnosed Aflutter with RVR on admission Controlled now on digoxin, Metoprolol, Diltiazem Cardiology reviewed the patient Patient also has a new MICMP due to the Aflutter EF newly reduced to 20% from 55% His CHADSVASC score is 4 for CAD, Age, CAD, CHF, patient however refuse anticoagulation I have educated him on risk of CVA and morbidity in the future, he verbalized understanding but repeatedly refused anticoagulation Continue Aspirin Discharged home on current therapy Follow up with Cardiology as outpatitn Qualifiers: Atrial flutter type: unspecified Qualified Code(s): I48.92 - Unspecified atrial flutter (5) Acute CHF Priority: Primary Status: Acute Comments: As above Qualifiers: Congestive heart failure type: systolic Qualified Code(s): I50.21 - Acute systolic (congestive) heart failure (6) Cardiomyopathy Priority: Secondary Status: Acute Comments: As in A.flutter Qualifiers: Cardiomyopathy type: unspecified Qualified Code(s): I42.9 - Cardiomyopathy , unspecified (7) JACQUES (acute kidney injury) Priority: Primary Status: Resolved Comments: Resolved Cr back to baseline, patient has CHF (8) Acute respiratory failure Priority: Primary Status: Resolved Comments: acute hypoxic and hypercapnic respiratory failure likely secondary to acute COPD exacerbation from possible acute bronchitis likely viral Completed antibiotics He has improved on steroids and duonebs Discharge home on duonebs O2 qualification test prior to discharge Qualifiers: Respiratory failure complication: hypoxia and hypercapnia Qualified Code(s) : J96.01 - Acute respiratory failure with hypoxia; J96.02 - Acute respiratory failure with hypercapnia; J96.02 - Acute respiratory failure with hypercapnia; J96.02 - Acute respiratory failure with hypercapnia (9) At risk for obstructive sleep apnea Priority: Primary Status: Acute Comments: Sleep study as out-patient (10) Hematuria Priority: Primary Status: Resolved Comments: Urology followed inpatient Resolved Qualifiers: Hematuria type: unspecified type Qualified Code(s): R31.9 - Hematuria, unspecified - Discharge Medications Prescriptions: Atorvastatin [Lipitor] 40 mg PO HS #30 tablet Digoxin [Lanoxin] 0.125 mg PO DAILY #30 tablet Diltiazem CD (24hr) [Cardizem CD] 120 mg PO DAILY #30 cap.er.24h Lisinopril 2.5 mg PO DAILY #30 tablet Metoprolol XL (24 HR) Succ [Toprol Xl] 100 mg PO DAILY #60 tab.er.24h predniSONE [PredniSONE] 40 mg PO DAILY #4 tablet Home Medications: Ascorbic Acid [Vitamin C] 600 mg PO DAILY 09/01/16 [History] Aspirin [Lo-Dose Aspirin EC] 81 mg PO DAILY 09/01/16 [History] Cyanocobalamin (Vitamin B-12) [Vitamin B-12] 1,000 mcg SL DAILY 09/01/16 [ History] Multivitamin [One Daily Essential] 1 each PO DAILY 09/01/16 [History] Omeprazole 20 mg PO DAILY 09/01/16 [History] Oxycodone HCl/Acetaminophen [Percocet 10-325 mg Tablet] 1 tab PO Q6H PRN [History] Atorvastatin [Lipitor] 40 mg PO HS #30 tablet 03/06/17 [Rx] Digoxin [Lanoxin] 0.125 mg PO DAILY #30 tablet 03/06/17 [Rx] Diltiazem CD (24hr) [Cardizem CD] 120 mg PO DAILY #30 cap.er.24h 03/06/17 [Rx] Lisinopril 2.5 mg PO DAILY #30 tablet 03/06/17 [Rx] Metoprolol XL (24 HR) Succ [Toprol Xl] 100 mg PO DAILY #60 tab.er.24h 03/06/17 [ Rx] predniSONE [PredniSONE] 40 mg PO DAILY #4 tablet 03/06/17 [Rx] Allergies/Adverse Reactions: 3 Allergy/AdvReac Type Severity Reaction Status Date / Time No Known Allergies Allergy Verified 02/09/17 09:54 Date of admission: 02/26/17 17:32 Primary care physician: Karen Richmond CNP Consults: 02/27/17 10:16 Consult to Cardiology [CONS] Routine Comment: Consulting Provider: Cardiology Danielle Reason for Consult: A flutter RVR and new reduced EF =20% from 2015 EF=60% Call Completed: Yes 03/02/17 14:59 Consult to Nephrology [CONS] Routine Consulting Provider: Jose Armando Ortiz Reason for Consult: JACQUES. Creatinine 1.84 Call Completed: Yes 03/04/17 10:02 Consult to Pulmonology [CONS] Routine Consulting Provider: [facility] Danielle Reason for Consult: Flash pulmonary oedema Call Completed: Yes 03/04/17 10:15 Consult to Molasses Coloring Operator [CONS] Routine Reason for SW Consult: BEING EVICTED FROM HOME/LOT.DAUGHTER NEEDS HELP 03/05/17 13:33 Consult to Urology [CONS] Routine Consulting Provider: Urology Danielle Reason for Consult: hematuria Call Completed: Yes Discharging clinician: Keith Montgomery Anticipated date of discharge: 03/06/17 - Patient Status Disposition: Home, Self-Care Condition: Good Functional capacity at discharge: independent ambulation Overall status at discharge: patient is progressing back to baseline - Discharge Instructions Follow Up With: Mary Cotto PAC [Physician Marketing Specialist] - 03/24/17 8:30 am Karen Richmond CNP [Primary Care Provider] - 03/09/17 10:00 am - Diet and Activity Activity: resume usual activities as tolerated Diet: diabetic diet, low fat, low cholesterol, low salt diet Interval History: See below Hospital course: Mr. Pillai is a 77 year old male with multiple medical co-morbidities he was admitted and managed for JACQUES on CKD, new onset Aflutter with RVR and Non- ischemic cardiomyopathy (MICMP), Acute systolic CHF with euvolemia, Acute hypoxic and hypercapneic respiratory failure secondary to COPDE He was transferred to the [facility] from [facility] lab due to possible oversedation and resp failure He has made significant improvement since He is seen and evaluated at bedside this morning He has no complains He is stable clinically and safe to be discharged home Details as in each diagnosis Plan of care discussed verbalized understanding - Time Spent with Patient Total time spent providing and/or coordinating discharge services: Greater than 30 minutes - Constitutional Vitals: Temp Pulse Resp BP Pulse Ox 97.6 F 70 18 140/83 97 03/06/17 12:13 03/06/17 12:13 03/06/17 12:13 03/06/17 12:13 03/06/17 12:13 General appearance: Present: cooperative, A&O X 3, no acute distress, obese, answers questions appropriately - Head Head exam: Present: atraumatic, normocephalic - Eye Eye exam: Present: PERRL, conjuntiva pink, sclera anicteric Pupils: Present: PERRL - Neck Neck exam general surgery: Present: supple, trachea midline. Absent: lymphadenopathy - Respiratory Respiratory exam: Present: CTAB. Absent: accessory muscle use, rales, rhonchi, wheezes - Cardiovascular Cardiovascular exam: Present: RRR, +S1, +S2. Absent: diastolic murmur, gallop, rubs, systolic murmur - GI/Abdominal GI/Abdominal exam: Present: normal bowel sounds, soft, no peritoneal signs. Absent: distended, tenderness - Extremities Exam Extremities exam: Present: warm, radial pulses palpable and symmetrical. Absent : calf tenderness, cyanotic, pedal edema - Neurological Exam Neurological exam: Present: alert, CN II-XII intact, oriented X3, no focal deficits. Absent: pronater drift, facial droop, speech deficit - Skin Skin exam: Present: dry, intact
[2017-03-06] MEDS ORDERED: FLUARIX QUAD 2017-18 36MOS UP/PF 0.5 ML SYRINGE IM ONE (12:51)
[2017-03-06 16:17] VITALS: BP 140/83
== END 2017-03-06 17:55 | disposition home or self-care (01) | DRG 286 ==
LOC: EMEROO 13:18 → 2NENU 13:18 → SUATTDRO 17:32 → ICNU 03-03 14:44 → 2NENU 03-05 08:32
PROVIDERS: ADMIT Internal Medicine; ATTEND Internal Medicine